=== PATIENT | female | born 1960 | race Caucasian/White ===

== ENCOUNTER → 2022-08-16 07:00 | Outpatient (REF) | payer BC, SELFPAY ==
[2022-08-16 09:30] LABS: Urine Calcium 7.2 mg/dl
[2022-08-16 09:33] LABS: 24 Hour Urine Calcium 129.6 mg/day; 24 Hour Urine Creatinine 1.062 gm/day (0.8-1.8); 24 Hour Urine Total Volume 1800 ml
== END ==
LOC: REG 07:00
PROVIDERS: ATTENDING PHYSICIAN Internal Medicine Endocrinology, Diabetes & Metabolism; FAMILY PHYSICIAN Family Medicine; OTHER PHYSICIAN Internal Medicine Hematology & Oncology; OTHER PHYSICIAN Obstetrics & Gynecology Gynecology
DX: M81.8 Other osteoporosis without current pathological fracture (principal)
CPT/HCPCS: 81050; 82340; 82570

== ENCOUNTER 2023-08-13 03:29 | Inpatient (IN) | payer BC, SELFPAY ==
[2023-08-12 23:11] VITALS: BP 105/61
[2023-08-12 23:12] VITALS: BP 105/61
[2023-08-12 23:25] VITALS: BMI 27.0
[2023-08-12 23:36] LABS: % Basophils 0.5 % (0-2); % Immature Granulocytes 0.3 % (0-0.5); % Lymphocytes 2.9 % (20.5-51.1); % Monocytes 2.3 % (1.7-9.3); Absolute Basophils 0.1 10^3/uL (0-0.2); Absolute Eosinophils 0.1 10^3/uL (0-0.7); Absolute Lymphocytes 0.3 10^3/uL (1.2-3.4); Absolute Monocytes 0.2 10^3/uL (0.1-0.6); Absolute Neutrophils 8.5 10^3/uL (1.4-6.5); Hematocrit 39.2 % (37.0-47.0); Hemoglobin 13.5 g/dL (12.0-16.0); Mean Corp Hgb Conc. 34.4 g/dL (33.0-37.0); Mean Corpuscular Hgb 30.7 pg (27.0-31.0); Mean Corpuscular Volume 89.1 fL (81.0-99.0); Mean Platelet Volume 8.8 fL (7.4-10.4); Nucleated Red Blood Cells % 0 %; Platelet Count 318 10^3/uL (130-400); Red Cell Dist. Width 12.9 % (11.5-14.5); White Blood Cell Count 9.2 10^3/uL (4.8-10.8)
[2023-08-12 23:51] LABS: ALT (SGPT) 485 U/L (0-35); Albumin 4.3 g/dl (3.5-5.0); Alkaline Phosphatase 94 U/L (38-126); Blood Urea Nitrogen 25 mg/dl (7-17); Calcium 8.7 mg/dl (8.4-10.2); Carbon Dioxide 24 mmol/L (22-30); Chloride 101 mmol/L (98-107); Estimated Creatinine Clearance 73 ml/min; Glucose 159 mg/dl (70-99); Potassium 4.2 mmol/L (3.5-5.1); Sodium 130 mmol/L (135-145); Total Bilirubin 0.6 mg/dl (0.2-1.3); Total Protein 8.2 g/dl (6.3-8.2); eGFR > 60.00
[2023-08-13] VITALS (12 sets, daily range): BP systolic 87–111; BP diastolic 51–69; BMI 26.8
[2023-08-13 00:05] LABS: AST (SGOT) 809 U/L (14-36)
--- NOTE | 2023-08-13 00:39 | ED.GENMED ---
History of Present Illness
General
Chief Complaint: Weakness
Source: patient and spouse
Exam Limitations: none
Time Seen by Provider: 08/13/23 00:31
Travel History
Have you had any contact with someone who has COVID-19?: Yes
Comment: pt. works in [facility] [employer]
Do you have any symptoms of coronavirus? Fever > 100 degrees, chills, cough, shortness of breath, sore throat, loss of taste or smell, muscle aches, or headache?: No
History of Present Illness
History of Present Illness:
See MDM
Past History
Past History
ED Past Medical History: Cancer (Ovarian), GERD, HTN, Hypercholesterolemia, Psychiatric (Anxiety, depression) and Other (Meningioma, PNA, Anemia)
ED Past Surgical History: Cholecystectomy, Gynecological ([facility] January 2013), Orthopedic (Carpal tunnel R), Urological (Ureteral stents) and Other (Santa filter, Hernia repair, Brain tumor with resection)
Social History
Tobacco: Non-smoker
Alcohol: None
Drug: None
Personal:
Living: with family
Employment: Employed
Family History
Family History: Hypertension
Phy Exam
Physical Exam
Physical Exam:
See MDM
Course
Orders/Labs/Results
Orders:
Orders
08/12/23 23:20
Electrocardiogram (*1) Urgent
Reason for Study: Syncope
08/12/23 23:21
EKG- Treatment ONCE
08/12/23 23:22
Acetaminophen Urgent
Comment: ADD ON
CMP [Comprehensive Metabolic Panel] Urgent
Complete Blood Count/With Diff Urgent
08/13/23 00:31
Add On- LAB Urgent
Tests Added?: acetaminophen level
08/13/23 00:39
CT Abd/pelvis W Iv Cont Urgent
Comment:
Reason For Exam: RUQ pain, elevated LFTs
0.9% Sodium Chloride 1000 ml [Nss] 1,000 ml IV BOLUS
08/13/23 01:46
Add On- LAB Urgent
Tests Added?: Lipase
Abnormal Lab Results
08/12/23
23:22
Absolute Neuts (auto) 8.5 H 10^3/uL
(1.4-6.5)
Absolute Lymphs (auto) 0.3 L 10^3/uL
(1.2-3.4)
Neutrophils % 93.0 H %
(42.2-75.2)
Lymphocytes % 2.9 L %
(20.5-51.1)
Sodium 130 L mmol/L
(135-145)
BUN 25 H mg/dl
(7-17)
Glucose 159 H mg/dl
(70-99)
AST 809 H* U/L
(14-36)
ALT 485 H U/L
(0-35)
08/12/23 23:22
08/12/23 23:22
Vital Signs
Initial and Last Documented VS:
Initial Vital Signs
BP
105/61
08/12/23 23:11
Last Documented Vital Signs
Temp Pulse Resp BP Pulse Ox
98.1 F 106 23 87/65 97
08/12/23 23:12 08/13/23 00:45 08/13/23 00:45 08/13/23 00:02 08/13/23 00:45
MDM/Problems Addressed
Differential Diagnosis Includes:
HPI and MDM Narrative:
63-year-old female presenting with syncopal event. She has been feeling unwell today and feeling nauseous. She did have an episode of diarrhea. Patient now complaining of right abdominal pain. Blood work was obtained prior to my evaluation.
Patient found to have significant transaminitis. She does admit to taking Tylenol today but denies Tylenol overdose or abuse. Patient states she has had her gallbladder removed in the past.
Given transaminitis, will ultimately admit. However, will give IV fluids for dehydration and diarrhea. Will obtain CT abdomen/pelvis
Physical exam
General: Weak and frail
HEENT: protecting airway. Dry mucous membranes
Neck: appears supple
CV: No evidence of cyanosis. Tachycardic
Resp: No accessory muscle use
Abd: Non-distended. Mild tenderness to right abdomen. No rebound
Extremities: No deformities
Neuro: alert
Psych: Normal affect
Skin: Intact
Problems Addressed including Acute and Chronic Conditions affecting care:
1. Transaminitis and abdominal pain
Acuity: acute
Prognosis: unstable
Details: Will obtain CT abdomen/pelvis
2. Dehydration
Acuity: acute
Prognosis: unstable
Details: Patient started on IV fluid
Updates
CT concerning for stone near the ampulla. Will add on lipase levels. Given her transaminitis and CT findings, will admit for ERCP versus MRCP.
Differential Diagnosis (but not limited to): Choledocholithiasis, colitis, hepatitis
Testing considered: Hepatitis testing
Drug therapy (if applicable): OTC meds, please see d/c instruction regarding Rx drugs
Amount and/or Complexity of Data Reviewed
Clinical info obtained from: Patient
External data reviewed: N/A
Labs I independently reviewed (but not limited to): Elevated AST and ALT
Radiology: The CT scan was personally and independently reviewed. In addition, official CT report reviewed.
Pulse Ox: not hypoxic
EKG independently reviewed: Sinus tachycardia, normal axis, no STEMI
Board Saw Runner: Sinus tachycardia
Critical Care: N/A
Risk of Complication:
Social Determinants of health: Good social support
Discussed with other providers: Hospitalist
Escalation of Care includes Admit/Obs: Given the transaminitis and CT findings, will admit for further workup
Occasional wrong word or 'sound a like' substitutions may have occurred due to the inherent limitations of voice recognition software. Read the chart carefully and recognize, using context, where substitutions have occurred.
*Critical Care Note
Total Time (30-74mins, 75-104mins- exclusive of procedures): Not Applicable
ED Attending Note
-
Portions of this chart may have been created with voice recognition software.� Occasional wrong word or��sound alike� substitutions may have occurred due to the inherent limitations of voice recognition software.
Discharge Plan
Departure
Patient Disposition: Admit
Date of Disposition: 08/13/23
Time of Disposition: 01:50
Admit to: Med/Surg
Presentation/result/management discussed w/ accepting MD/DO: Hospitalist
Discharge Problem:
Transaminitis, Acute dehydration
Prescriptions:
No Action
venlafaxine [Effexor XR] 150 MG capsule,extended release 24hr
225 mg PO DAILY
multivitamin [Daily Vitamin] 1 EACH tablet
1 tab PO DAILY
vitamin B complex 1 EACH tablet
1 tab PO DAILY
cholecalciferol (vitamin D3) [Vitamin D3] 2,000 UNIT capsule
2,000 unit PO DAILY
cranberry fruit 500 MG tablet,chewable
500 mg PO PRN PRN (Reason: uti)
zoledronic lrfr-ymqumqxp-tpxel [Reclast] 5 mg/100 mL Piggyback
See Rx Instructions .ROUTE .COMPLEX
Rx Instructions:
1 ea intravenously yearly
Referrals:
Hernan Pan MD [Family Provider] -
Interventions
Interventions:
*Risk Screen - Suicide Last Done: 08/12/23 23:25
*General Assessment Last Done: 08/12/23 23:25
*Neglect/Abuse Screening Last Done: 08/12/23 23:25
ED- Fall Risk Assessment Last Done: 08/12/23 23:25
*ED COVID-19 Vaccine History Last Done: 08/12/23 23:25
ED- Cardiac Assessment Last Done: 08/12/23 23:25
ED- Neurological Assessment Last Done: 08/12/23 23:25
ED- Pulmonary Assessment Last Done: 08/12/23 23:25
[2023-08-13] MEDS: NSS 1000 IV ×4 (00:55→13:20)
[2023-08-13 01:32] LABS: Acetaminophen 12 ug/ml (10-30)
[2023-08-13 02:01] LABS: Lipase 659 U/L (23-300)
--- NOTE | 2023-08-13 02:34 | HPS.HSE ---
Family Physician
-
Family Physician: Hernan Pan
Chief Complaint
-
Right upper quadrant pain, weakness
History of Present Illness
Patient is a pleasant 63 years old with history of ovarian cancer, GERD, HTN, Hypercholesterolemia, depression who came to the ER with right upper quadrant pain associated with diarrhea, weakness and and dizziness.
Patient has right upper quadrant pain for many months, she had a history of cholecystectomy 24 years ago, blood work showed elevated liver enzymes, normal alkaline phosphatase, elevated lipase at 659, CT abdomen pelvis done in the ER concerning of
stone at ampulla, official report pending.
Patient seen and examined at bedside, denies any chest pain or shortness of breath, still with right upper quadrant abdominal pain, dry heaves to diarrhea was today morning, as per she was having progressive weakness and lightheaded with
ambulation, blood pressure is low at 87/65 in the ER.
Patient will be admitted under hospitalist service.
Medical History
Past Medical History
Past Medical History: Reports Other
Additional Past Medical History:
Cancer (Ovarian), GERD, HTN, Hypercholesterolemia, Psychiatric (Anxiety, depression) and Other (Meningioma, PNA, Anemia)
Past Surgical History: Reports Other (Cholecystectomy, Gynecological ([facility] January 2013), Orthopedic (Carpal tunnel R), Urological (Ureteral stents) and Other (Santa filter, Hernia repair, Brain tumor with resection))
Social History
Tobacco: Non-smoker
Alcohol: None
Drug: None
Personal:
Living: With Family
Employment: Employed
Family History
Family History: Not pertinent
Allergies / Home Medications
Allergies reflects when Allergies were last updated in [email or web address].
Home Medications with original date entered in [email or web address]
Allergy/Medication List:
Allergies
Allergy/AdvReac Type Severity Reaction Status Date / Time
Ixensxo-BUE-PuK Reductase Allergy 'Quivering Verified 09/30/22 14:50
Inhibitor legs'
[Flxhmcx-Rzi-Qlc Reductase
Inhibitor]
CONTRAST MRI Allergy Unknown Uncoded 09/30/22 14:50
Home Medications
venlafaxine 150 mg capsule,extended release 24 hr (Effexor XR) 225 mg PO DAILY 10/16/12
multivitamin (Daily Vitamin tablet) 1 tab PO DAILY 09/24/13
vitamin B complex 1 tab PO DAILY 09/24/13
cholecalciferol (vitamin D3) 50 mcg (2,000 unit) capsule (Vitamin D3) 2,000 unit PO DAILY 08/14/16
cranberry fruit 500 mg chewable tablet 500 mg PO PRN PRN uti 08/14/16
zoledronic acid 5 mg/100 mL in mannitol 5 %-water intravenous piggybck (Reclast) See Rx Instructions .Route .COMPLEX 09/30/22
Review of Systems
-
A 12 point ROS was completed and negative except as noted: Yes
Constitutional: Reports Fever and Fatigue; Denies Weight Gain, Weight Loss or Sleep Disturbance
EENT: Denies Tearing, Sore Throat, Mouth Pain, Mouth Swelling or Runny Nose
Respiratory: Denies Cough, Hemoptysis or Trouble Breathing
Cardiac: Denies Chest Pain, Diaphoresis, Palpitations or Syncope
Abdomen/GI: Reports Abdominal Pain, Nausea, Vomiting and Diarrhea; Denies Constipated, Bloody Stools or Black Stools
: Denies Dysuria, Frequency, Flank Pain, Incontinence, Difficulty Voiding, Urgency, Bleeding or Dark Urine
Musculoskeletal: Denies Joint Pain, Joint Swelling, Muscle Pain, Muscle Stiffness or Edema
Skin: Denies Itching or Rash
Neurological: Denies Dizzy, Headache, Weakness or Numbness
Endocrine: Denies Polyuria, Polydipsia or Temp Intolerance
Hematologic/Lymphatic: Denies Bleeding, Swollen Glands or Bruising
Psych: Reports Calm and Depression; Denies Anxiety or Panic Disorder
Physical Exam
Vital Signs
Vital Signs
Temp Pulse Resp BP Pulse Ox
98.1 F 106 23 87/65 97
08/12/23 23:12 08/13/23 00:45 08/13/23 00:45 08/13/23 00:02 08/13/23 00:45
Physical Exam
General: Well Developed, Well Nourished, No Apparent Distress, Comfortable and Good Appetite; No Pain, Chills or Sweats
HEENT: NormoCephalic, Moist mucous membranes, Atraumatic, Good Dentition, PERRLA, Nose Appears Normal and Ears Appear Normal
Respiratory: Clear
Cardiac: S1/S2 and Regular Rhythm
Breast: Deferred by me
GI: Non Distended, Normal Bowel Sounds and Tender (RUQ)
Genito-urinary: Deferred by me
Musculoskeletal: No Clubbing, No Cyanosis and No Edema
Skin: Warm; No Rash, Jaundice, Ulcers, Lesions or Decubitus Ulcers
Neuro: Awake, Alert, Oriented, AO x 3, No Motor Deficits, Nonfocal/grossly intact and Cranial Nerves Intact
Hematologic/Lymphatic: No Lymphadenopathy
Psych: Calm
Laboratory Results
-
08/12/23 23:22
08/12/23 23:22
Laboratory Results
Total Bilirubin 0.6 mg/dl (0.2-1.3) 08/12/23 23:22
AST 809 U/L (14-36) H* 08/12/23 23:22
ALT 485 U/L (0-35) H 08/12/23 23:22
Alkaline Phosphatase 94 U/L (38-126) 08/12/23 23:22
Lipase 659 U/L (23-300) H 08/12/23 23:22
Data Reviewed
-
Diagnostic Radiology: Report Reviewed by me
CT Scan: Report Reviewed by me
Medical Tests (Nuc Med, Echo, EKG etc): Report Reviewed by me
Lab Data: Labs Reviewed by me
Old Records: Requested and Reviewed
Impression/Plan
-
IMPRESSION:
63 years old with history of ovarian cancer, hypertension, depression who came to the ER with right upper quadrant pain and weakness, found to have elevated AST/ALT with normal alk phos and concern of stone at ampulla will be admitted for GI
consult/MRCP and possibly ERCP.
PLAN:
Transaminitis/acute pancreatitis.
AST 809
ALT 485
ALP 94
[address] abdomen pelvis done in the ER shows concern of stone at ampulla-official report pending.
Consult gastroenterology.
N.p.o.
IV fluid hydration
Pain and nausea control.
Depression
Recently changed Effexor to a different manufacture, since then patient experience depression and tearing
Requested psych consult.
Mild hyponatremia
Secondary to low appetite and diarrhea
IV fluid hydration
History of ovarian cancer
S/p surgical removal
CODE STATUS: Full code
DVT prophylaxis: Lovenox
Diet: N.p.o.
[2023-08-13] MEDS: TORADOL 10 MG IV ×2 (04:09→19:56)
--- NOTE | 2023-08-13 05:41 | PTCARENOTE ---
Rec'd pt from the ER. Pt ambulated in to the room with standby assist as she had previously passed out at home. Pain currently at a 0 since receiving Toradol in the ER. NSS infusing as ordered. Pt expresses that she does not wish to receive her
Effexor today as she feels it has changed her mood. Will pass on to the next shift in report. Call valles in reach.
[2023-08-13 08:44] LABS: Hematocrit 33.5 % (37.0-47.0); Hemoglobin 11.7 g/dL (12.0-16.0); Mean Corp Hgb Conc. 34.9 g/dL (33.0-37.0); Mean Corpuscular Hgb 31.4 pg (27.0-31.0); Mean Corpuscular Volume 89.8 fL (81.0-99.0); Mean Platelet Volume 9.4 fL (7.4-10.4); Platelet Count 272 10^3/uL (130-400); Red Blood Cell Count 3.73 10^6/uL (4.20-5.40); Red Cell Dist. Width 13.1 % (11.5-14.5); White Blood Cell Count 5.8 10^3/uL (4.8-10.8)
--- NOTE | 2023-08-13 09:06 | CON.GI ---
Addendum entered and electronically signed by Renny Akhtar MD 08/13/23 14:30:
I saw and examined the patient.
The CENTRIFUGAL SPINNER or PA's note was reviewed and I agree with the note.
Comment:
63 y/o female with hx of ovarian ca with mets in 2012, cholecystectomy in 1999 with n/v and some diarrhea with ruq d/c.
abd: mild ruq tenderness
CT scan: suggestive of ampullary stone
impression:
n/v
diarrhea
abd pain
plan:
MRCP
monitor lfts
PPI
collect stool studies if diarrhea restarts
check hep panel
Original Note:
Consultation
-
Date/Time Consultation Requested: 08/13/23 @ 03:59
Date/Time Consultation Performed: 08/13/2023 @ 09:15
Requesting Provider: Dr. Ab Arboleda
Performing Provider: Samanta RAMIRES; Dr. Renny Akhtar
Reason for Consultation: Transaminitis/pancreatitis
Medical History
Chief Complaint / HPI
Chief Complaint: RUQ pain, weakness
History of Present Illness:
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
Joshua with [facility]), hyperlipidemia, hypertension, GERD, anxiety/depression, chronic anemia, history of brain meningioma with resection, cholecystectomy (1999), who presented to the emergency room with complaints of right upper quadrant pain
and weakness. We are being asked to evaluate for transaminitis and ?pancreatitis. The patient reports for the past several months she has been having intermittent right upper quadrant pain. She notes that it was primarily intermittent in nature
but more recent has been more of a constant pain this past week. She notes pain under her right rib area that sometimes radiates to her back. She also admits to chills but denies any overt fevers. She admits to feelings of nausea without vomiting
but has had significant dry heaves. She notes since her radiation history to her esophagus that she has never been able to vomit. She also admits to diarrhea of multiple episodes with nonbloody output. She notes passing out twice yesterday as
well due to her hypovolemic state. She notes she has not been eating as well the last few days due to ongoing symptoms. She does admit to chronic constipation and will take MiraLAX, Senokot, and Colace when needed. She has not followed up with a
GI doctor recently but is known to Dr. Patel previously. She reports when she had her gallbladder removed she did have many stones found. She admits to history of ovarian cancer treated about 11 years ago with radiation and chemo. She reports
prior colonoscopy and endoscopy as noted below. She denies any yellowing of the skin or eyes. She otherwise denies any dysphagia, odynophagia, unintentional weight loss, chest pain, or shortness of breath. She denies any history of liver disease
or hepatitis. She denies any prior history of pancreatitis. She denies any new medications, recent travel, recent sick contacts, or recent antibiotic use. She does note she did get a shingles vaccine in June. She denies use of blood thinners
or NSAIDs. Routine labs on admission showed a WBC 5.8, hemoglobin 11.7, platelets 272,000, sodium 130, potassium 4.2, BUN 25, creatinine 0.7, total bilirubin 0.6, AST 809, ALT 485, alk phos 95, lipase 659. CT imaging of the abdomen pelvis with IV
contrast was obtained showing CBD dilation of 1.1 cm with mild intra biliary ductal dilation and concern for stone at the ampulla. She was made n.p.o. and admitted for further evaluation by GI with pending MRCP this morning.
Past Medical History
Past Medical History: Cancer (Ovarian cancer with metastasis to the esophagus and stomach status post radiation and chemotherapy.), GERD, HTN, Hypercholesterolemia, Psychiatric (Anxiety/depression, chronic anemia) and Other (Hernia)
Past Surgical History: Cholecystectomy (24 years ago), Gynecological (Total abdominal hysterectomy 2012), Urological (Ureteral stents) and Other (brain meningioma resection, IVC filter placement and removal)
Social History
Tobacco: Non-Smoker
Alcohol: None
Drug: None
Personal:
Living: With Family
Family History
Family History: Reviewed & Not Pertinent
Allergies / Home Medications
Allergy/AdvReac Type Severity Reaction Status Date / Time
Jgrtgzd-IEG-EzC Reductase Allergy 'Quivering Verified 09/30/22 14:50
Inhibitor legs'
[Oxrkior-Egh-Bzt Reductase
Inhibitor]
CONTRAST MRI Allergy Unknown Uncoded 09/30/22 14:50
Medication Instructions Recorded
venlafaxine 150 mg 225 mg PO DAILY 10/16/12
capsule,extended release 24 hr
(Effexor XR)
multivitamin (Daily Vitamin tablet) 1 tab PO DAILY 09/24/13
vitamin B complex 1 tab PO DAILY 09/24/13
cholecalciferol (vitamin D3) 50 2,000 unit PO DAILY 08/14/16
mcg (2,000 unit) capsule (Vitamin
D3)
cranberry fruit 500 mg chewable 500 mg PO PRN PRN uti 08/14/16
tablet
zoledronic acid 5 mg/100 mL in See Rx Instructions .Route .COMPLEX 09/30/22
mannitol 5 %-water intravenous
piggybck (Reclast)
Review of Systems
-
History Source: Patient
Constitutional: Reports Chills
EENT: Reports No Symptoms
Respiratory: Reports No Symptoms
Cardiac: Reports No Symptoms
Abdomen/GI: Reports Abdominal Pain, Nausea, Diarrhea, Constipated and Anorexia
: Reports No Symptoms
Musculoskeletal: Reports No Symptoms
Skin: Reports No Symptoms
Neurological: Reports Weakness
Vital Signs
Temp Pulse Resp BP Pulse Ox
97.8 F 109 16 93/59 96
08/13/23 05:26 08/13/23 05:26 08/13/23 05:26 08/13/23 05:26 08/13/23 05:44
Physical Exam
Exam
General: Well Developed, Well Nourished, No Apparent Distress and Other (Pale appearing )
HEENT: Normocephalic, Anicteric and Atraumatic
Respiratory: Clear
Cardiac: S1/S2 and Regular Rhythm
Breast: Deferred by me
GI: Soft, Non Distended, Normal Bowel Sounds and Tender (Generalized tenderness, primarily in the right upper quadrant right lower quadrant)
Rectal: Deferred by Provider
Musculoskeletal: No Edema
Skin: Warm and Dry
Neuro: Awake and Oriented
Psych: Calm
Results
WBC 5.8 10^3/uL (4.8-10.8) 08/13/23 07:54
Hgb 11.7 g/dL (12.0-16.0) L 08/13/23 07:54
Hct 33.5 % (37.0-47.0) L 08/13/23 07:54
MCV 89.8 fL (81.0-99.0) 08/13/23 07:54
Plt Count 272 10^3/uL (130-400) 08/13/23 07:54
Absolute Neuts (auto) 8.5 10^3/uL (1.4-6.5) H 08/12/23 23:22
Sodium 130 mmol/L (135-145) L 08/12/23 23:22
Potassium 4.2 mmol/L (3.5-5.1) 08/12/23 23:22
Chloride 101 mmol/L (98-107) 08/12/23 23:22
Carbon Dioxide 24 mmol/L (22-30) 08/12/23 23:22
BUN 25 mg/dl (7-17) H 08/12/23 23:22
Creatinine 0.7 mg/dL (0.6-1.0) 08/12/23 23:22
Calcium 8.7 mg/dl (8.4-10.2) 08/12/23 23:22
Total Bilirubin 0.6 mg/dl (0.2-1.3) 08/12/23 23:22
AST 809 U/L (14-36) H* 08/12/23 23:22
ALT 485 U/L (0-35) H 08/12/23 23:22
Alkaline Phosphatase 94 U/L (38-126) 08/12/23 23:22
Lipase 659 U/L (23-300) H 08/12/23 23:22
Diagnostic Image Results:
08/13/2023 CT A/P w/IV contrast: IMPRESSION:
'1. 5 mm hyperattenuating lesion in the region of the distal common bile duct, with associated mild dilation of the common bile duct. This may represent a common bile duct stone, and is new compared to prior CT dated 01/09/2020. Consider MRCP as
clinically appropriate.
2. Laxity of the anterior abdominal wall, allowing for protrusion of multiple bowel loops. No evidence of incarceration or intestinal obstruction.'
Prior GI Procedures:
EGD: 08/11/2020 Dr. Patel: Normal esophagus. Biopsied. Z-line regular, 35 cm from the incisors. Moderate antral gastritis. Biopsied. Bilious gastric fluid. Fluid aspiration performed. Normal examined duodenum. Biopsied. Path showing mild chronic
gastritis, negative for H pylori, celiac, EoE, or Lilly's.
09/05/2015 Dr. Patel: Normal esophagus. Several biopsies were obtained for evaluation of eosinophilic esophagitis Z-line regular, 39 cm from the incisors. Normal stomach. Biopsied. A single gastric polyp. Biopsied.
Normal examined duodenum. Biopsied. Path showing chronic antral inflammation, negative for H pylori, celiac, EoE, Lilly's. Benign gastric polyps.
�Colonoscopy: 08/11/2020 Dr. Patel: Two 3 to 4 mm benign polyps in the rectum. Non-bleeding internal hemorrhoids. The examined portion of the ileum was normal. The examined portion of the ileum was normal.
09/05/2015 Dr. Patel: One 6 mm adenomatous polyp in the mid ascending colon. Biopsied. The examined portion of the ileum was normal.
Assessment / Plan
-
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
Joshua with [facility]), hyperlipidemia, hypertension, GERD, anxiety/depression, chronic anemia, history of brain meningioma with resection, cholecystectomy (1999), who presented to the emergency room with complaints of right upper quadrant pain
and weakness. We are being asked to evaluate for transaminitis and ?pancreatitis. She notes somewhat subacute right upper quadrant pain over the past several months which has been intermittent now with a constant discomfort and elevated LFTs.
Labs showing total bilirubin 0.6, AST 809, ALT 485, alk phos 94. CT imaging showing possible choledocho and dilation of the common bile duct. No evidence of pancreatitis on imaging. She has also been having diarrhea prior to admission and likely
in a hypovolemic state. No recent antibiotics, sick contacts, recent travel.
Problem list:
-RUQ pain, CT imaging concerning for choledocholithiasis
-abnormal LFT's, hepatocellular pattern
-Prior CCY in 1999
-hx metastatic ovarian cancer to stomach/esophagus s/p chemo/XRT/[facility]
-mild hyponatremia
-diarrhea
-chronic constipation
Other pertinent medical hx:
-Hypertension
-Hyperlipidemia
-GERD
-Depression/anxiety
-History of brain meningioma with resection
-Chronic normocytic anemia
-Abdominal hernia
Recommendations:
-Etiology of abdominal pain likely secondary to choledocholithiasis with '5 mm hyperattenuating lesion in the region of the distal common bile duct with dilated common bile duct' on CT imaging.
-Agree with MRCP this morning. Will review with Dr. Akhtar regarding MRI contrast imaging with her history of cancer. She does note an allergy to MRI contrast although unclear which one.
-Continue n.p.o. status until MRCP is complete. If MRCP is positive will need ERCP on Tuesday.
-Trend LFTs
-Monitor for fevers or leukocytosis, currently she does not appear toxic
-I do not feel she has pancreatitis as her lipase level is not 3 times upper limit nor did CT imaging showed inflammation of the pancreas.
-IV fluids as per hospitalist
-Will send stool studies to rule out infectious etiology for her diarrhea; possibly viral/infectious etiology
-Monitor sodium levels and electrolytes
-Avoid hepatotoxins
-Will add hepatitis serologies
-She will need follow-up outpatient with GI for evaluation of her chronic constipation and surveillance colonoscopy which is due in 2025
-We will follow
-
-
Thank you for consultation and allowing me to participate in the patient's care. Please call the cellulose insulation helper GI physician during the after hours with any questions or concerns.
[2023-08-13 09:19] LABS: Albumin 3.3 g/dl (3.5-5.0); Alkaline Phosphatase 120 U/L (38-126); Blood Urea Nitrogen 21 mg/dl (7-17); Calcium 7.4 mg/dl (8.4-10.2); Carbon Dioxide 21 mmol/L (22-30); Chloride 107 mmol/L (98-107); Estimated Creatinine Clearance 85 ml/min; Glucose 136 mg/dl (70-99); Lipase 282 U/L (23-300); Magnesium 1.5 mg/dl (1.6-2.3); Potassium 3.9 mmol/L (3.5-5.1); Sodium 132 mmol/L (135-145); Total Bilirubin 0.6 mg/dl (0.2-1.3); Total Protein 6.3 g/dl (6.3-8.2); eGFR > 60.00
[2023-08-13] MEDS: LOVENOX 40 MG SC (09:38)
[2023-08-13 10:23] LABS: ALT (SGPT) 899 U/L (0-35); AST (SGOT) 1417 U/L (14-36)
--- NOTE | 2023-08-13 11:08 | CON.MD ---
Addendum entered and electronically signed by Danny Fu MD 08/13/23 11:52:
Desvenlafaxine and Trintellix are not on formulary. I returned to see pt -- Ricky was visiting. She admits she skipped a few doses of Effexor last week likely due to nausea. Now agreeable to Remeron Whit Tab 15 mg. HS (mirtazapine) which
should help nausea, sleep, depression and anxiety. Psychiatry will follow.
Original Note:
Consultation - Medical
-
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
region of the distal common bile duct with dilated common bile duct on CT. Psychiatry asked to see her due to worsening depression possibly due to a change in bench mover of venlafaxine which she has taken for about 12 years. She has a past
medical history of metastatic ovarian cancer, meningioma resection at [facility] 01/2013, cholecystectomy, GERD, Htn, hypercholesterolemia. She has refused venlafaxine for the past two doses (which could be causing withdrawal symptoms including
nausea and dizziness). BP has been low in hospital.
Has always been an anxious person. When she was receiving RT for ov ca, she was started on Effexor the final dose being 225 mg. for many years. Despite this, has had intermittent suicidal thoughts and ongoing anxiety. When she was diagnosed with
a meningioma, she had a difficult time and seemingly was admitted briefly to a psychiatric unit (could not recall where). In the past two weeks, has had increased depression with suicidal thoughts, tearfulness, and frightening nightmares. Her
weight has been stable and appetite has been okay until recently. Occassionally sees a therapist, Dr. Angi Regan, who also sees pt's son with ASD.
PH: Venlafaxine XR x 12 years. Denies ever being treated with other antidepressants, atypical antipsychotics or other psychiatric medications. One brief psychiatric hospitalization as noted above.
FH: Parents when she was 11; not close to father thereafter. Mother in 2012. Brother shortly after mother. He had a drug history. One sister also had a drug history. Has a sister in [place] and one in [place]. 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 Apparently good marriage. Has a 46 y/o son who has stopped talking to them for unknown reasons. Has 36 y/o son who is intelligent but has Asperger's Syndrome and is usually living with them. He
drives and works. No known family history of depression, bipolar disorder or suicide.
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 Lives on [address] property in [place]. 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 No alcohol, illicit drugs or nicotine.
MSE: Middle aged woman wearing glasses who is alert and oriented resting in bed. Appears mildly uncomfortable and at the end of my visit began to retch. No tics, tremors or involuntary movements observed. Mood is depressed. Tearful at times.
Pleasant. Speech is well-articulated and goal-directed. Rare word-finding problems. Denies hallucinations. Has had thoughts of suicide without intentions. Chronic anxiety but no panic attacks. Obsessive nature. Cognitively intact. Memory
fairly good but not formally tested. Motivated for treatment.
Labs: WBC 5.8, Hgb 11.7, Hct 33.7, Plt 272, ANC 8.5, Na 132, BUN 21, Cr. 0.6, Gluc 136, Ca low at 7.4, Mg. low at 1.5, Alb 3.3 and Lypase 282 (was 659. AST 809 yesterday to 1417 today; ALT 485 yesterday to [address]: Common bile duct stone 5
mm.
Impression: This 63 y/o woman who has had a number of stressors but also serious medical problems now presents with a common bile duct stone causing elevation of LFTs and medical symptoms. She has had worsening of depression including thoughts of
suicide which she attributes to a change in bench mover of venlafaxine, but may have also been triggered by her physical condition.
Diagnosis: Major Depressive Disorder, Recurrent, Moderate
Generalized Anxiety Disorder
Plan: I assured Mrs. Rosario there are many ways to treat depression. For now, suggested switching from venlafaxine to desvenlafaxine (Pristiq) which is the CYP 2D6 metabolite and should be a more dependable way to replacing venlafaxine. She
declined an offer of mirtazapine which can help nausea and sleep, but often causes weight gain. It is premature to consider augmentation strategies, but aripirazone could be considered. I also told her that Trintellix is a good option, but I don't
think it is available at . I will begin Pristiq 100 mg. daily to replace Effexor XR 225 mg. There is no need for suicide precautions.
Psychiatry will follow. I would be happy to have her seen for ongoing care in my private practice as we participate in the [employer] plan and in Medicare.
--- NOTE | 2023-08-13 12:37 | W.PN.HOSP.TC ---
Today's Communication/Plan
-
MRCP
add zosyn
Assessment / Plan
Assessment / Plan
pt is a 63 year old female
abdominal pain/n/v--likely due to Transaminitis from obstructing stone in duct--trend LFTs--check MRI--apprec GI--NPO/IVF--pt with chills--would cover with ABX
Depression--Recently changed Effexor to a different manufacture, since then patient experience depression and tearing--Requested psych consult.
Mild hyponatremia--Secondary to low appetite and diarrhea--IV fluid hydration
History of ovarian cancer--S/p surgical removal
CODE STATUS: Full code
DVT prophylaxis: Lovenox
Anticipated Discharge: > 48 hours
Subjective/Interval History
-
Date of Service: August 13, 2023
pt c/o nausea and retching
Objective Data
-
Labs:
Laboratory Results
08/13/23
07:54
WBC 5.8
Hgb 11.7 L
Hct 33.5 L
Plt Count 272
Sodium 132 L
Potassium 3.9
Chloride 107
Carbon Dioxide 21 L
BUN 21 H
Creatinine 0.6
Glucose 136 H
Calcium 7.4 L
Total Bilirubin 0.6
AST 1417 H*
ALT 899 H*
Alkaline Phosphatase 120
Vital Signs:
max temp for 24 hours
08/12/23
23:12
Temp 98.1 F
Vital Signs
Temp Pulse Resp BP Pulse Ox
100.2 F 113 18 107/66 100
08/13/23 11:10 08/13/23 11:10 08/13/23 11:10 08/13/23 11:10 08/13/23 11:10
Review of Systems
-
All other systems: Reviewed and negative
Abdomen/GI: Reports Nausea
Physical Exam
-
General: Well Developed, Well Nourished and No Apparent Distress
HEENT: Normocephalic and Atraumatic; Negative Oxygen
Respiratory: Clear to Auscultation; Negative Wheezes or Rhonchi
Cardiac: Regular Rhythm and S1/S2; Negative Murmur
GI: Soft, Nontender, Nondistended and Normal Bowel Sounds
Musculoskeletal: No Clubbing, No Cyanosis and No Edema
Skin: Warm
Neuro: Awake
[2023-08-13] MEDS: ZOSYN 50 IV ×2 (13:22→19:48)
[2023-08-13] MEDS: MAGNESIUM SULFATE 100 IV (15:33)
[2023-08-13] MEDS: ZOFRAN 4 MG IV (19:47)
[2023-08-13] MEDS: REMERON ODT 15 MG PO (21:34)
--- NOTE | 2023-08-13 22:30 | PTCARENOTE ---
Pt. did not having nightmares after she woke up with staff came in room, pt. then fell back to sleep.
[2023-08-14] VITALS (7 sets, daily range): BP systolic 103–135; BP diastolic 55–77; PULSE 95; O2SAT 100
[2023-08-14] MEDS: NSS 1000 IV ×3 (02:54→20:41)
[2023-08-14] MEDS: ZOSYN 50 IV ×4 (02:54→19:39)
[2023-08-14] MEDS: LOVENOX 40 MG SC (07:31)
--- NOTE | 2023-08-14 08:55 | CM ---
Patient seen bedside.
IA completed.
patient lives with spouse in 2 story home.
Independent prior to admission.
No d/c needs anticipated.
MRCP completed.
PCP: Dr Mireya Pan
Pharmacy: [facility]
Plan: home no needs.
[2023-08-14 09:17] LABS: Hematocrit 31.6 % (37.0-47.0); Hemoglobin 10.7 g/dL (12.0-16.0); Mean Corp Hgb Conc. 33.9 g/dL (33.0-37.0); Mean Corpuscular Volume 91.6 fL (81.0-99.0); Mean Platelet Volume 9.6 fL (7.4-10.4); Platelet Count 246 10^3/uL (130-400); Red Blood Cell Count 3.45 10^6/uL (4.20-5.40); Red Cell Dist. Width 13.6 % (11.5-14.5); White Blood Cell Count 5.7 10^3/uL (4.8-10.8)
[2023-08-14 09:56] LABS: ALT (SGPT) 472 U/L (0-35); AST (SGOT) 362 U/L (14-36); Albumin 2.9 g/dl (3.5-5.0); Alkaline Phosphatase 129 U/L (38-126); Blood Urea Nitrogen 15 mg/dl (7-17); Calcium 6.8 mg/dl (8.4-10.2); Carbon Dioxide 20 mmol/L (22-30); Chloride 108 mmol/L (98-107); Estimated Creatinine Clearance 73 ml/min; Glucose 82 mg/dl (70-99); Magnesium 2.6 mg/dl (1.6-2.3); Potassium 3.5 mmol/L (3.5-5.1); Sodium 130 mmol/L (135-145); Total Bilirubin 0.4 mg/dl (0.2-1.3); Total Protein 5.8 g/dl (6.3-8.2); eGFR > 60.00
--- NOTE | 2023-08-14 10:00 | W.PN.GI.CBS2 ---
Today's Communication / Plan
-
monitor lfts,
Assessment / Plan
-
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
Joshua with [facility]), hyperlipidemia, hypertension, GERD, anxiety/depression, chronic anemia, history of brain meningioma with resection, cholecystectomy (1999), who presented to the emergency room with complaints of right upper quadrant pain
and weakness. We are being asked to evaluate for transaminitis and ?pancreatitis. She notes somewhat subacute right upper quadrant pain over the past several months which has been intermittent now with a constant discomfort and elevated LFTs.
Labs showing total bilirubin 0.6, AST 809, ALT 485, alk phos 94. CT imaging showing possible choledocho and dilation of the common bile duct. No evidence of pancreatitis on imaging. She has also been having diarrhea prior to admission and likely
in a hypovolemic state. No recent antibiotics, sick contacts, recent travel.
Problem list:
-RUQ pain, CT imaging concerning for choledocholithiasis
-abnormal LFT's, hepatocellular pattern
-Prior CCY in 1999
-hx metastatic ovarian cancer to stomach/esophagus s/p chemo/XRT/[facility]
-mild hyponatremia
-diarrhea
-chronic constipation
Other pertinent medical hx:
-Hypertension
-Hyperlipidemia
-GERD
-Depression/anxiety
-History of brain meningioma with resection
-Chronic normocytic anemia
-Abdominal hernia
MRCP:
Common bile duct measures up to 9.7 mm, in the upper range of normal, with top-normal considered 10 mm after cholecystectomy.
There is no convincing evidence for intraluminal bile duct calculus.
The calcification identified in the region of the distal common bile duct on CT appears to be adjacent to the common bile duct, not within the common bile duct. This calcification may however be within or obstructing the pancreatic duct in the
region of the pancreatic head.
Note is made of pancreatic divisum anatomy.
Recommendations:
- follow LFTS which markedly came down today
- will likely need EUS +/- ERCP to evaluate if numbers remain elevated will d/w Dr Jaeger (will keep NPO in case needs to be done tomorrow)
- no stool to collect
- monitor lfts
- clear liquids today
Subjective
Subjective
Date of Service: August 14, 2023
Pt w/o pain, not hungry
Objective
Data Reviewed
Laboratory Data:
Laboratory Results
08/14/23 08:03
08/14/23 08:03
Laboratory Results
Magnesium 2.6 mg/dl (1.6-2.3) H 08/14/23 08:03
Total Bilirubin 0.4 mg/dl (0.2-1.3) 08/14/23 08:03
AST 362 U/L (14-36) H 08/14/23 08:03
ALT 472 U/L (0-35) H 08/14/23 08:03
Alkaline Phosphatase 129 U/L (38-126) H 08/14/23 08:03
Lipase 282 U/L (23-300) 08/13/23 07:54
Vital Signs and I&O:
Vital Signs
Temp Pulse Resp BP Pulse Ox
97.9 F 96 14 115/64 97
08/14/23 07:15 08/14/23 07:15 08/14/23 07:15 08/14/23 07:15 08/14/23 07:15
I&O
08/13/23 08/14/23 08/15/23
06:59 06:59 06:59
Intake Total 800 / 800
Balance 800 / 800
Physical Exam
Physical Exam
GI: Soft, Non Distended and Non Tender
[2023-08-14] MEDS: CALCIUM GLUCONATE 280 MG IV (10:40)
--- NOTE | 2023-08-14 10:59 | W.PN.HOSP.TC ---
Today's Communication/Plan
-
getting ERCP/EUS in AM
replete calcium
trend labs
Assessment / Plan
Assessment / Plan
pt is a 63 year old female
abdominal pain/n/v--likely due to Transaminitis from obstructing stone in duct--LFTs a bit better--no stone seen on MRI--apprec GI--clears, NPO at [facility] for ERCP/EUS in AM--pt with chills--zosyn added
hypocalcemia/hypokalemia--replete
Depression--Recently changed Effexor to a different manufacture, since then patient experience depression and tearing--apprec psych
Mild hyponatremia--Secondary to low appetite and diarrhea--IV fluid hydration
History of ovarian cancer--S/p surgical removal
CODE STATUS: Full code
DVT prophylaxis: Lovenox
Anticipated Discharge: > 48 hours
Subjective/Interval History
-
Date of Service: August 14, 2023
pt with minimal RUQ pain
Objective Data
-
Labs:
Laboratory Results
08/14/23
08:03
WBC 5.7
Hgb 10.7 L
Hct 31.6 L
Plt Count 246
Sodium 130 L
Potassium 3.5
Chloride 108 H
Carbon Dioxide 20 L
BUN 15
Creatinine 0.7
Glucose 82
Calcium 6.8 L*
Total Bilirubin 0.4
AST 362 H
ALT 472 H
Alkaline Phosphatase 129 H
Vital Signs:
max temp for 24 hours
08/13/23
11:10
Temp 100.2 F
Vital Signs
Temp Pulse Resp BP Pulse Ox
97.9 F 96 14 115/64 97
08/14/23 07:15 08/14/23 07:15 08/14/23 07:15 08/14/23 07:15 08/14/23 07:15
I&O
08/13/23 08/14/23 08/15/23
06:59 06:59 06:59
Intake Total 800 / 800
Balance 800 / 800
Review of Systems
-
All other systems: Reviewed and negative
Physical Exam
-
General: Well Developed, Well Nourished and No Apparent Distress
HEENT: Normocephalic and Atraumatic
Respiratory: Clear to Auscultation; Negative Wheezes or Rhonchi
Cardiac: Regular Rhythm and S1/S2; Negative Murmur
GI: Soft, Nontender, Nondistended and Normal Bowel Sounds
Musculoskeletal: No Clubbing, No Cyanosis and No Edema
Neuro: Awake
Psych: Calm
--- NOTE | 2023-08-14 12:56 | W.PN.UPDATE ---
Update Note
Progress Note Update
63 y /o woman seen yesterday in consultation due to depression with suicidal ideation in face of elevation of transaminases, abdominal pain, diarrhea and nausea. She had been on Effexor XR 225 mg. but was not taking in the few days before I saw her
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 I stopped Effexor and began Remeron Whit Tab 15 mg. HS.
I spoke briefly to her side panel hanger and reviewed report from [facility]. No stone was seen yesterday, 'The calcification identified in the region of the distal common bile duct on CT appears to be adjacent to the common bile duct, not within the
common bile duct. This calcification may however be within or obstructing the pancreatic duct in the region of the pancreatic head.' Calcifications were also seen in the pancreas. Today, very significant reduction in transaminases: AST 1417 to
362; ALT 899 to 472, Alk phos slightly increased. Lipase is now normal (was elevated). She will likely have ERCP tomorrow.
Pt. seen in room and visitors all left so we could speak privately. She was tearful at the thought of this being a recurrence of cancer and said she would not want to go through this again. I suggested she wait to see what is found. She very much
would like to be seen in my private office. Also expressed concerns about her son. Family is very supportive. Friends in the hallway let me know what a kind person she is.
Her sleep was somewhat better last night. Still having bad dreams. Will continue Remeron 15 mg, this could be increased to 30 mg. which would have a better antidepressant effect although not necessarily more adverse effects (sedation and weight
gain). It should help nausea.
Psychiatry will continue to follow.
[2023-08-14] MEDS: ZOFRAN 4 MG IV (20:40)
[2023-08-14] MEDS: REMERON ODT 15 MG PO (20:40)
--- NOTE | 2023-08-14 22:18 | W.PN.UPDATE ---
Update Note
Progress Note Update
Nursing notes patient with bilateral lower leg redness, swelling, and burning sensation. Did receive second dose of Remeron tonight which may cause red man syndrome. She also has MRI contrast allergy listed but received IV contrast with CT scan this
admission. Regardless she is reacting to something so will start with Benadryl 50 MG IV now...no respiratory compromise or stridor noted.
[2023-08-14] MEDS: BENADRYL 50 MG IV (22:30)
--- NOTE | 2023-08-14 22:30 | PTCARENOTE ---
Pt with redness in her bilateral thighs. Pt denies shortness of breath or itching, but reports that her thighs are 'burning'. House LEARNING COORDINATOR Geovanna Mccarty notified, order for 1x IV Benadryl 50mg provided to pt. Will continue to monitor.
[2023-08-15] MEDS: ZOSYN 50 IV ×2 (02:33→08:46)
[2023-08-15 03:00] VITALS: BP 117/71
[2023-08-15 05:52] LABS: Hematocrit 31.5 % (37.0-47.0); Hemoglobin 10.5 g/dL (12.0-16.0); Mean Corp Hgb Conc. 33.3 g/dL (33.0-37.0); Mean Corpuscular Hgb 30.2 pg (27.0-31.0); Mean Corpuscular Volume 90.5 fL (81.0-99.0); Mean Platelet Volume 9.3 fL (7.4-10.4); Platelet Count 224 10^3/uL (130-400); Red Blood Cell Count 3.48 10^6/uL (4.20-5.40); Red Cell Dist. Width 13.4 % (11.5-14.5); White Blood Cell Count 5.4 10^3/uL (4.8-10.8)
[2023-08-15 06:02] LABS: INR 1.01; PT 13.1 Sec (11.4-14.6)
[2023-08-15 06:19] LABS: ALT (SGPT) 321 U/L (0-35); AST (SGOT) 165 U/L (14-36); Albumin 3.1 g/dl (3.5-5.0); Alkaline Phosphatase 107 U/L (38-126); Blood Urea Nitrogen 9 mg/dl (7-17); Calcium 7.6 mg/dl (8.4-10.2); Carbon Dioxide 21 mmol/L (22-30); Chloride 111 mmol/L (98-107); Estimated Creatinine Clearance 73 ml/min; Glucose 84 mg/dl (70-99); Magnesium 1.8 mg/dl (1.6-2.3); Potassium 3.5 mmol/L (3.5-5.1); Sodium 135 mmol/L (135-145); Total Bilirubin 0.4 mg/dl (0.2-1.3); eGFR > 60.00
[2023-08-15 07:38] VITALS: BP 112/66
[2023-08-15] MEDS: NSS 1000 IV (07:41)
[2023-08-15] MEDS: LOVENOX 40 MG SC (08:46)
--- NOTE | 2023-08-15 09:56 | W.PN.HOSP.TC ---
Today's Communication/Plan
-
Stop Zosyn
Await ERCP
Assessment / Plan
Assessment / Plan
Gen-AAOx3, NAD
HEENT-NC, AT, anicteric, clear oral mm
Neck-supple
CV-reg, no M, +S1/S2
Lungs-clear B/L
Abd-soft, NT, ND
Ext-no edema
Musculoskeletal-no cyanosis, clubbing
Skin-warm and dry, faint maculopapular rash on both thighs
Neuro-grossly non-focal
Psych-calm, cooperative
Acute hepatitis--likely due to Transaminitis from obstructing stone in duct--LFTs a bit better--no stone seen on MRI--apprec GI. Await ERCP today. Transaminases trending down. Viral hepatitis panel pending.
Drug rash -suspect may be related to piperacillin/tazobactam. Will discontinue. Remeron was also discontinued last night. Recommend outpatient follow-up with immunology. She did tolerate amoxicillin in the past for sore throat.
hypocalcemia/hypokalemia--replete
Depression--Recently changed Effexor to a different manufacture, since then patient experience depression and tearing--apprec psych
Hypovolemic hyponatremia -improved.
History of ovarian cancer--S/p surgical removal
CODE STATUS: Full code
DVT prophylaxis: Lovenox
Anticipated Discharge: Within 24 hours
Subjective/Interval History
-
Date of Service: August 15, 2023
Patient seen and examined. Complaining of rash on her legs, improved compared to last night.
Objective Data
-
Labs:
Laboratory Results
08/15/23
05:20
WBC 5.4
Hgb 10.5 L
Hct 31.5 L
Plt Count 224
PT 13.1
INR 1.01
APTT 34.0
Sodium 135
Potassium 3.5
Chloride 111 H
Carbon Dioxide 21 L
BUN 9
Creatinine 0.7
Glucose 84
Calcium 7.6 L
Total Bilirubin 0.4
AST 165 H
ALT 321 H
Alkaline Phosphatase 107
Vital Signs:
Vital Signs
Temp Pulse Resp BP Pulse Ox
98.4 F 82 18 112/66 94
08/15/23 07:38 08/15/23 07:38 08/15/23 07:38 08/15/23 07:38 08/15/23 07:38
I&O
08/14/23 08/15/23 08/16/23
06:59 06:59 06:59
Intake Total 800 / 800 2420 / 2420
Balance 800 / 800 2420 / 2420
Review of Systems
-
History Source: Patient
All other systems: Reviewed and negative
[2023-08-15 12:00] VITALS: BP 120/84
[2023-08-15 12:40] LABS: IgG 1741 mg/dl (700-1600)
--- NOTE | 2023-08-15 13:37 | W.PN.GI.CBS2 ---
Today's Communication / Plan
-
Monitor LFTs. Advance diet to low-fat. Outpatient follow-up with Dr. Jaeger. Possible discharge in a.m. if tolerating diet and LFTs continue to improve.
Assessment / Plan
-
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
Joshua with [place]), hyperlipidemia, hypertension, GERD, anxiety/depression, chronic anemia, history of brain meningioma with resection, cholecystectomy (1999), who presented to the emergency room with complaints of right upper quadrant pain
and weakness. We are being asked to evaluate for transaminitis and ?pancreatitis. She notes somewhat subacute right upper quadrant pain over the past several months which has been intermittent now with a constant discomfort and elevated LFTs.
Labs showing total bilirubin 0.6, AST 809, ALT 485, alk phos 94. CT imaging showing possible choledocho and dilation of the common bile duct. No evidence of pancreatitis on imaging. She has also been having diarrhea prior to admission and likely
in a hypovolemic state. No recent antibiotics, sick contacts, recent travel.
Problem list:
-RUQ pain, CT imaging concerning for choledocholithiasis
-abnormal LFT's, hepatocellular pattern
-Prior CCY in 1999
-hx metastatic ovarian cancer to stomach/esophagus s/p chemo/XRT/[facility]
-mild hyponatremia
-diarrhea
-chronic constipation
-Depression with suicidal ideations, psych following
Other pertinent medical hx:
-Hypertension
-Hyperlipidemia
-GERD
-History of brain meningioma with resection
-Chronic normocytic anemia
-Abdominal hernia
08/13/23 MRCP:
Common bile duct measures up to 9.7 mm, in the upper range of normal, with top-normal considered 10 mm after cholecystectomy.
There is no convincing evidence for intraluminal bile duct calculus.
The calcification identified in the region of the distal common bile duct on CT appears to be adjacent to the common bile duct, not within the common bile duct. This calcification may however be within or obstructing the pancreatic duct in the
region of the pancreatic head.
Note is made of pancreatic divisum anatomy.
Recommendations:
-Etiology of abnormal LFTs possibly secondary to passed stone. MRCP did not reveal any convincing evidence of choledocholithiasis as above.
-Reviewed the case with Dr. Jaeger, who does not feel the patient needs an inpatient EUS/ERCP for evaluation as her LFTs are improving along with her pain
-Continue to trend LFTs
-Will arrange for outpatient follow-up in the office in 2 to [address] Jaeger for further evaluation
-Send stool studies if recurrent diarrhea
-Placed on low-fat diet today
-If LFTs remain normal and she is tolerating her diet, likely can be discharged home tomorrow with outpatient follow-up with Dr. Jaeger
-Psychiatry following for worsening depression with suicidal ideations (per their notes)
Subjective
Subjective
Date of Service: August 15, 2023
The patient was seen and examined at the bedside. She reports mild abdominal tenderness but no significant pain. LFTs are continue to trend down. MRI results noted.
Objective
Data Reviewed
Laboratory Data:
Laboratory Results
08/15/23 05:20
08/15/23 05:20
Laboratory Results
PT 13.1 Sec (11.4-14.6) 08/15/23 05:20
INR 1.01 08/15/23 05:20
APTT 34.0 Sec (23.4-35.0) 08/15/23 05:20
Magnesium 1.8 mg/dl (1.6-2.3) 08/15/23 05:20
Total Bilirubin 0.4 mg/dl (0.2-1.3) 08/15/23 05:20
AST 165 U/L (14-36) H 08/15/23 05:20
ALT 321 U/L (0-35) H 08/15/23 05:20
Alkaline Phosphatase 107 U/L (38-126) 08/15/23 05:20
Lipase 282 U/L (23-300) 08/13/23 07:54
Vital Signs and I&O:
Vital Signs
Temp Pulse Resp BP Pulse Ox
98.4 F 82 18 112/66 94
08/15/23 07:38 08/15/23 07:38 08/15/23 07:38 08/15/23 07:38 08/15/23 07:38
I&O
08/14/23 08/15/23 08/16/23
06:59 06:59 06:59
Intake Total 800 / 800 2420 / 2420
Balance 800 / 800 2420 / 2420
Physical Exam
Physical Exam
HEENT: Anicteric
Cardiology: S1 and S2 (Regular rate/rhythm)
Pulmonary: Clear
GI: Soft, Non Distended, Tender (Mildly tender in the upper abdomen right greater than left) and Normal Bowel Sounds
Neuro: Non Focal
--- NOTE | 2023-08-15 14:50 | W.PN.UPDATE ---
Update Note
Progress Note Update
Pt seen, with present, both reporting recent change of generic version of Effexor XR 225 mg caused worsening of pt's depression/mood instability. Pt on generic Effexor XR 225 mg daily for years. Pt was seen by weekend Psychiatrist and
tries on Remeron 15 mg HS, but developed an apparent drug rash- unclear if from Zosyn or Remeron (both stopped). Pt alert, calm, cooperative, with stable affect.
Imp: Major Depressive d/o, recurrent, moderate
Rec: trial of generic Pristiq 100 mg QD; Rx called in to [facility] pharmacy [place]- will be filled tomorrow. will have to bring in (non-formulary med). Will give Effexor XR 75 mg daily temporarily.
Will follow
[2023-08-15 16:00] VITALS: BP 138/83
[2023-08-15] MEDS: NSS IV (17:40)
[2023-08-15] MEDS: EFFEXOR XR 75 MG PO (17:57)
--- NOTE | 2023-08-15 18:25 | W.PN.UPDATE ---
Update Note
Progress Note Update
d/w Dr. Jaeger. will watch her lfts and consider EUS tomorrow based on results. He did want to follow as an outpatient but pt is extremely anxious and upset. wants to have it as an inpatient.
[2023-08-15 20:06] LABS: Hepatitis B Surface Antigen Negative (Negative)
[2023-08-15 20:24] LABS: Hepatitis B Core Ab, Total Negative (Negative); Hepatitis B Surface Antibody Negative
[2023-08-15 20:25] LABS: Hepatitis C Antibody Negative (Negative)
[2023-08-15 21:31] LABS: Hepatitis A IgM Antibody Negative (Negative)
[2023-08-15] MEDS: MELATONIN 5 MG PO (22:28)
[2023-08-15 23:03] VITALS: BP 120/69
--- NOTE | 2023-08-15 23:17 | PTCARENOTE ---
Pt with complaint of not sleeping well previous night. Stated she had rec'd benadryl for a rash and it had the reverse effect on her. Tonia RAMIRES made aware and ordered Melatonin 5MG . Pt was agreeable to that and rec'd it at 22:28. Pt made
aware that there is an NPO order in for after midnight. Reviewed with her the updated noted from the evening. Pt verbalized an understanding.
[2023-08-16] VITALS (8 sets, daily range): BP systolic 21–141; BP diastolic 69–86
[2023-08-16] MEDS: LOVENOX 40 MG SC (08:06)
[2023-08-16] MEDS: EFFEXOR XR 75 MG PO (08:06)
[2023-08-16 08:16] LABS: ALT (SGPT) 236 U/L (0-35); AST (SGOT) 84 U/L (14-36); Albumin 3.2 g/dl (3.5-5.0); Alkaline Phosphatase 89 U/L (38-126); Blood Urea Nitrogen 11 mg/dl (7-17); Calcium 8.1 mg/dl (8.4-10.2); Carbon Dioxide 22 mmol/L (22-30); Chloride 107 mmol/L (98-107); Estimated Creatinine Clearance 85 ml/min; Glucose 84 mg/dl (70-99); Potassium 3.4 mmol/L (3.5-5.1); Sodium 134 mmol/L (135-145); Total Bilirubin 0.3 mg/dl (0.2-1.3); Total Protein 6.2 g/dl (6.3-8.2); eGFR > 60.00
--- NOTE | 2023-08-16 09:37 | W.PN.HOSP.TC ---
Addendum entered and electronically signed by Link Cain DO 08/16/23 17:24:
Emy mendosa called this afternoon for agitation on the part of the patient and family. They are frustrated that ERCP has been scheduled then canceled and scheduled again. I spent a lot of time speaking with patient and at the bedside to
explain that the ERCP at this point in time is totally optional given improvement in LFTs and a suspected diagnosis of a passed gallstone. I spoke with gastroenterology regarding this and they agree. Moving forward, patient agrees to stay for ERCP
today. She understands plan of care. I also explained to her that she likely has IBS to explain her symptoms of diarrhea and constipation as well as bloating and abdominal discomfort. This can be addressed as an outpatient. All questions were
answered. Gisselle Hunt was present during our meeting.
Original Note:
Today's Communication/Plan
-
Replete potassium
Check magnesium
ERCP
Stool studies
Assessment / Plan
Assessment / Plan
Gen-AAOx3, NAD
HEENT-NC, AT, anicteric, clear oral mm
Neck-supple
CV-reg, no M, +S1/S2
Lungs-clear B/L
Abd-soft, NT, ND
Ext-no edema
Musculoskeletal-no cyanosis, clubbing
Skin-warm and dry, faint maculopapular rash on both thighs
Neuro-grossly non-focal
Psych-calm, cooperative
Acute hepatitis--likely due to Transaminitis from obstructing stone in duct-. LFTs trended down. No stone seen on MRI--apprec GI. Await ERCP today. Transaminases trending down. Viral hepatitis panel negative.
Drug rash -suspect may be related to piperacillin/tazobactam, discontinued. Remeron was also discontinued as well. Recommend outpatient follow-up with immunology. She did tolerate amoxicillin in the past for sore throat.
Hypokalemia -replete intravenously. Check magnesium.
Acute diarrhea -check stool studies, rule out C. difficile colitis.
hypocalcemia/hypokalemia--replete
Depression--Recently changed Effexor to a different manufacture, since then patient experience depression and tearing--apprec psych
Hypovolemic hyponatremia -134.
History of ovarian cancer--S/p surgical removal
CODE STATUS: Full code
DVT prophylaxis: Lovenox
Anticipated Discharge: > 48 hours
Subjective/Interval History
-
Date of Service: August 16, 2023
Patient seen and examined. Complaining of loose stools since last night.
Objective Data
-
Labs:
Laboratory Results
08/16/23
07:21
Sodium 134 L
Potassium 3.4 L
Chloride 107
Carbon Dioxide 22
BUN 11
Creatinine 0.5 L
Glucose 84
Calcium 8.1 L
Total Bilirubin 0.3
AST 84 H
ALT 236 H
Alkaline Phosphatase 89
Vital Signs:
Vital Signs
Temp Pulse Resp BP Pulse Ox
97.9 F 80 20 141/76 96
08/16/23 07:15 08/16/23 07:15 08/16/23 07:15 08/16/23 07:15 08/16/23 07:15
I&O
08/15/23 08/16/23 08/17/23
06:59 06:59 06:59
Intake Total 2420 / 2420 215 / 2149
Balance 2420 / 2420 2149
Review of Systems
-
History Source: Patient
All other systems: Reviewed and negative
[2023-08-16] MEDS: KCL 270 MEQ IV (10:01)
[2023-08-16 10:14] LABS: Magnesium 1.6 mg/dl (1.6-2.3)
--- NOTE | 2023-08-16 10:25 | W.PN.UPDATE ---
Update Note
Progress Note Update
Patient seen at bedside, chart reviewed, discussed with staff. Ms. Rosario tells me she slept better last night. Unfortunately, she is dealing with a lot of loose stools she tells me. GI is following and she is anticipated for an EUS today. She is
NPO. Her will be picking up the new antidepressant, desvenlafaxine, today. Once it is here in the hospital, she can begin to take in place of Effexor in hopes for a better benefit for her depressive symptoms. Today, Ms. Rosario is calm,
cooperative, and pleasant. Denies any SI/SB. She admits to feeling some anxiety related to her GI symptoms.
Impression/Plan:� Major depressive disorder, recurrent, moderate - will initiate desvenlafaxine once is able to bring in to hospital as this is a non-formulary medication. Until available, give Effexor XR 75 mg daily to avoid withdrawal
symptoms.
--- NOTE | 2023-08-16 11:00 | PTCARENOTE ---
/- Patient, and Son spoke with GI about upcoming procedure. Patient began crying and walked out of room towards elevators with her IV pole. 's voice was elevated, stating he will go to [facility] unless 'she is transferred to [place]
today and gets her procedure today. I know you can control that because they're buying you out.' After 2 [employer] and directors called in, was able to de-escalate patient and using validating conversation. Patient and agree to
proceed with care here at this time.
--- NOTE | 2023-08-16 12:18 | W.PN.UPDATE ---
Update Note
Progress Note Update
I came to see patient earlier today to explain to her her test results from today that her LFTs look markedly improved and I was going to discuss with Dr. Jaeger whether she still needs the endoscopic ultrasound based on her lab results from today. I
explained to her that she most likely passed a stone but she started then to argue with me that she does not agree with this and that she would like the procedure done as an inpatient despite the fact that her LFTs have been improving. I also
explained the risks of the procedure to her and also tried explaining to her that if the procedure is not indicated then the risk may outweigh the benefit and would defer decision to Dr. Jaeger. Again reiterated to her the fact that I was awaiting a
response from Dr. Jaeger. Once I did hear back from Dr. Jaeger, I went back to patient's room to confirm that Dr. Jaeger will try to do the EUS today and the then was at her bedside and started screaming at me saying that he wanted a definitive
answer if she was going to be definitely done today and the time that she was going to be done today, I tried explaining to him that sometimes if there are emergent procedures she may be done later today. I did calmly explain to the that he
needs to stop yelling and we can have a conversation with the patient and him once he stops yelling at me. Patient in the meantime walks out of the room with her IV pole and said that she wants to be transferred to [place] and wants to leave the
hospital. director of employee development and nursing care attendant were informed by her nurse and they convinced the patient to get back into the room. I went back in to see the patient but she wanted me out of the room.
--- NOTE | 2023-08-16 12:36 | W.PN.UPDATE ---
Update Note
Progress Note Update
Patient now back in her room and is now willing to stay and get her procedure done with Dr. Jaeger. She is also apologetic and is agreeable now to be seen by me
--- NOTE | 2023-08-16 12:52 | CM ---
CM following re: discharge planning.
Reviewed pt's chart.
PT and OT evaluations noted - pt likely has no needs, independent with functional ability.
D/C plan: home no needs.
CM will follow with discharge plan updates as hospitalization progresses
[2023-08-16 13:50] LABS: CA 125 < 5.5 U/mL (0-35)
[2023-08-16] MEDS: MELATONIN 5 MG PO (22:03)
--- NOTE | 2023-08-16 23:09 | PTCARENOTE ---
Pt returned from GI procedures at the start of the shift. Pt was very tearful and emotional upon assessment. She was crying about things that have happened in her past. Reorient pt to room and was able to get her to calm down. She did seem more
upset with her here as she kept bringing up the events to him. Pt's left and pt fell asleep for about 30 minutes. Upon awakening she is was more coherent. She stated that she has issues when she receives medications with procedures.
She kept asking if all of the events from earlier in the day actually happened. She denies pain. Melatonin given as ordered for sleep. Remains on Enhanced precautions. Call valles in reach.
[2023-08-17 07:30] VITALS: BP 131/78
[2023-08-17] MEDS: LOVENOX SC (08:11)
[2023-08-17] MEDS: EFFEXOR XR 75 MG PO (08:11)
--- NOTE | 2023-08-17 08:45 | W.PN.HOSP.TC ---
Addendum entered and electronically signed by Link Cain DO 08/17/23 12:06:
Stool positive for norovirus. Clinically improving though.
Anticipate discharge this afternoon if tolerates diet. Outpatient follow-up with PCP and GI. Follow-up with psychiatry. Abdominal x-ray in 2 weeks. LFTs in 1 to 2 weeks.
Original Note:
Today's Communication/Plan
-
Await GI input
Await labs
Assessment / Plan
Assessment / Plan
Gen-AAOx3, NAD
HEENT-NC, AT, anicteric, clear oral mm
Neck-supple
CV-reg, no M, +S1/S2
Lungs-clear B/L
Abd-soft, NT, ND
Ext-no edema
Musculoskeletal-no cyanosis, clubbing
Skin-warm and dry, faint maculopapular rash on both thighs
Neuro-grossly non-focal
Psych-calm, cooperative
Acute hepatitis--likely due to Transaminitis from obstructing stone in duct, suspected may have passed as her LFTs trended down. No stone seen on MRI--apprec GI. Viral hepatitis panel negative.
ERCP completed yesterday. Pancreatic ductal stones removed. 1 plastic stent placed into the ventral pancreatic duct. Pancreatic divisum anatomy noted. No biliary stones noted. Endoscopic ultrasound also completed. 11 mm dilated common bile
duct noted. No specimens collected.
Still n.p.o. this morning, will resume diet if okay with GI.
Drug rash -suspect may be related to piperacillin/tazobactam, discontinued. Remeron was also discontinued as well. Recommend outpatient follow-up with immunology. She did tolerate amoxicillin in the past for sore throat.
Hypokalemia -replete intravenously. Magnesium 1.6 yesterday. Labs pending for today.
Acute diarrhea -improved. Suspect she has underlying IBS given alternating episodes of constipation and diarrhea chronically. Recommend close outpatient follow-up with GI. Discussed with patient. Stool negative for C. difficile antigen and toxin.
Depression--Recently changed Effexor to a different manufacture, since then patient experience depression and tearing--apprec psych
Hypovolemic hyponatremia - labs pending for today.
History of ovarian cancer--S/p surgical removal. Patient requested CA125 to be checked, it came back normal.
CODE STATUS: Full code
DVT prophylaxis: Lovenox
Dispo -hopefully we can discharge if she tolerates her diet and if okay with GI
Anticipated Discharge: Within 24 hours
Subjective/Interval History
-
Date of Service: August 17, 2023
Patient seen and examined. Feeling much better. Slept well. Denies abdominal pain.
Objective Data
-
Labs:
Laboratory Results
08/17/23
07:01
Sodium Pending
Potassium Pending
Chloride Pending
Carbon Dioxide Pending
BUN Pending
Creatinine Pending
Glucose Pending
Calcium Pending
Total Bilirubin Pending
AST Pending
ALT Pending
Alkaline Phosphatase Pending
Vital Signs:
Vital Signs
Temp Pulse Resp BP Pulse Ox
98.2 F 79 19 131/78 100
08/17/23 07:30 08/17/23 07:30 08/17/23 07:30 08/17/23 07:30 08/17/23 08:15
I&O
08/16/23 08/17/23 08/18/23
06:59 06:59 06:59
Intake Total 2149 0 / 0
Balance 2149 0 / 0
Review of Systems
-
History Source: Patient
All other systems: Reviewed and negative
[2023-08-17 08:54] LABS: ALT (SGPT) 221 U/L (0-35); AST (SGOT) 110 U/L (14-36); Albumin 3.4 g/dl (3.5-5.0); Alkaline Phosphatase 145 U/L (38-126); Blood Urea Nitrogen 11 mg/dl (7-17); Calcium 8.3 mg/dl (8.4-10.2); Carbon Dioxide 21 mmol/L (22-30); Chloride 101 mmol/L (98-107); Estimated Creatinine Clearance 85 ml/min; Glucose 69 mg/dl (70-99); Potassium 3.6 mmol/L (3.5-5.1); Sodium 135 mmol/L (135-145); Total Bilirubin 0.4 mg/dl (0.2-1.3); Total Protein 6.5 g/dl (6.3-8.2); eGFR > 60.00
--- NOTE | 2023-08-17 10:03 | W.PN.GI.CBS2 ---
Today's Communication / Plan
-
adv diet
repeat LFTs in 1 to 2 weeks and abdominal x-ray in 2 weeks to check on the pancreatic stent (slips on chart)
Assessment / Plan
-
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
Joshua with [facility]), hyperlipidemia, hypertension, GERD, anxiety/depression, chronic anemia, history of brain meningioma with resection, cholecystectomy (1999), who presented to the emergency room with complaints of right upper quadrant pain
and weakness. We are being asked to evaluate for transaminitis and ?pancreatitis. She notes somewhat subacute right upper quadrant pain over the past several months which has been intermittent now with a constant discomfort and elevated LFTs.
Labs showing total bilirubin 0.6, AST 809, ALT 485, alk phos 94. CT imaging showing possible choledocho and dilation of the common bile duct. No evidence of pancreatitis on imaging. She has also been having diarrhea prior to admission and likely
in a hypovolemic state. No recent antibiotics, sick contacts, recent travel.
Problem list:
-RUQ pain, CT imaging concerning for choledocholithiasis
-abnormal LFT's, hepatocellular pattern
-Prior CCY in 1999
-hx metastatic ovarian cancer to stomach/esophagus s/p chemo/XRT/[facility]
-mild hyponatremia
-diarrhea
-chronic constipation
-Depression with suicidal ideations, psych following
Other pertinent medical hx:
-Hypertension
-Hyperlipidemia
-GERD
-History of brain meningioma with resection
-Chronic normocytic anemia
-Abdominal hernia
08/13/23 MRCP:
Common bile duct measures up to 9.7 mm, in the upper range of normal, with top-normal considered 10 mm after cholecystectomy.
There is no convincing evidence for intraluminal bile duct calculus.
The calcification identified in the region of the distal common bile duct on CT appears to be adjacent to the common bile duct, not within the common bile duct. This calcification may however be within or obstructing the pancreatic duct in the
region of the pancreatic head.
Note is made of pancreatic divisum anatomy.
Recommendations:
Etiology of abnormal LFTs possibly secondary to passed stone. MRCP did not reveal any convincing evidence of choledocholithiasis as above.
Status post EUS and ERCP yesterday with Dr. Jaeger no CBD stone noted, she had stones in the PD, status post pancreatic sphincterotomy and removal of the stones and a stent in the ventral pancreatic duct. also had pancreas divisum
LFTs slightly higher today but her symptoms have improved.
Advance diet if tolerates okay to DC home today and repeat LFTs in 1 to 2 weeks and abdominal x-ray in 2 weeks to check on the pancreatic stent (slips on chart)
Also had symptoms of nausea, vomiting and diarrhea which seems to have resolved stool was positive for norovirus but symptoms have resolved now and C. difficile is negative.
she does have chronic diarrhea alternating with constipation most likely has underlying IBS she is going to follow-up in GI office continue on MiraLAX as needed
will s/o and will be avialable as needed
Subjective
Subjective
Date of Service: August 17, 2023
She says that she feels much improved abdominal pain is markedly improved, no nausea vomiting, diarrhea is also resolved
Objective
Data Reviewed
Laboratory Data:
Laboratory Results
08/15/23 05:20
08/17/23 07:01
Laboratory Results
PT 13.1 Sec (11.4-14.6) 08/15/23 05:20
INR 1.01 08/15/23 05:20
APTT 34.0 Sec (23.4-35.0) 08/15/23 05:20
Magnesium 1.6 mg/dl (1.6-2.3) 08/16/23 07:21
Total Bilirubin 0.4 mg/dl (0.2-1.3) 03/06/24 07:01
AST 110 U/L (14-36) H 08/17/23 07:01
ALT 221 U/L (0-35) H 08/17/23 07:01
Alkaline Phosphatase 145 U/L (38-126) H 08/17/23 07:01
Lipase 282 U/L (23-300) 08/13/23 07:54
Vital Signs and I&O:
Vital Signs
Temp Pulse Resp BP Pulse Ox
98.2 F 79 19 131/78 100
08/17/23 07:30 08/17/23 07:30 08/17/23 07:30 08/17/23 07:30 08/17/23 08:15
I&O
08/16/23 08/17/23 08/18/23
06:59 06:59 06:59
Intake Total 2150 / 2150 0 / 0
Balance 2150 / 2150 0 / 0
Physical Exam
Physical Exam
Cardiology: Normal Sinus Rhythm
Pulmonary: Clear
GI: Soft, Non Distended, Tender (mild lower abdomen tenderness, ) and Normal Bowel Sounds
--- NOTE | 2023-08-17 11:40 | W.PN.UPDATE ---
Update Note
Progress Note Update
patient seen chart reviewed. discussed with nursing. patient's GI issues being addressed. patient awaiting arrival of pristiq which will be substituted for effexor as soon as it arrives. to bring it from local pharmacy as it is not
formulary here. dr smalls suggested consider be given to augmentation w abilify if pristiq not fully effective. dr smalls has agreed to see patient as out patient and patient is interested in continuing with him. patient was upset yesterday and
unhappy with her experience here at . encouraged her to discuss with those she feels did not treat her appropriately. she opined that bedside manner is almost as important as good in a physician and she was not content with interaction with
some of those treating her so far during this stay. patient also spoke of the stress of her life given her son's autism. she acknowledges anxiety about her son really impacts her life. she would like to find a psychiatrist for him. i will see what
i can do at [facility] to get him a prescriber with some experience in autism. will follow
--- NOTE | 2023-08-17 12:11 | W.DS.TRANS ---
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
-
Discharge Instructions:
Discharge Diagnosis/Procedures Pancreatic ductal stone, norovirus infection,
hyponatremia
Diet Low Residue
Activity As tolerated
Driving Restrictions As prior to admission
Bathing Restrictions None
Blood Work Liver function tests in 1 to 2 weeks
Others Tests Abdominal x-ray in 2 weeks
Instructions:
Stand-Alone Forms:
Changes to Home Medications: Yes
Discharge Medications:
DC Medications w/original date entered in [employer]
multivitamin (Daily Vitamin tablet) 1 tab PO DAILY 09/24/13
vitamin B complex 1 tab PO DAILY 09/24/13
cholecalciferol (vitamin D3) 50 mcg (2,000 unit) capsule (Vitamin D3) 2,000 unit PO DAILY 08/14/16
cranberry fruit 500 mg chewable tablet 500 mg PO PRN PRN uti 08/14/16
desvenlafaxine 100 mg tablet,extended release 24 hr 100 mg PO DAILY #30 tabs 08/17/23
Home Medication Changes
Stop venlafaxine
Pending Results: No
--- NOTE | 2023-08-17 13:19 | CM ---
Plan: discharge to home without needs
at the bediside and will provide transport home
== END 2023-08-17 15:18 | disposition home or self-care (01) | DRG 405 ==
LOC: 4 WEST ACU 03:29
PROVIDERS: Internal Medicine; Internal Medicine Gastroenterology; ADMITTING PHYSICIAN General Practice; ATTENDING PHYSICIAN Hospitalist; CONSULT PHYSICIAN Internal Medicine; CONSULT PHYSICIAN Psychiatry & Neurology Psychiatry; EMERGENCY PHYSICIAN Student in an Organized Health Care Education/Training Program; FAMILY PHYSICIAN Family Medicine
PROC: 0FC Hepatobiliary System and Pancreas, Extirpation (ICD-10-PCS; 2023-08-13)
PROC: 0DJ08ZZ Inspection of Upper Intestinal Tract, Via Natural or Artificial Opening Endoscopic (ICD-10-PCS; 2023-08-13)
DX: K80.50 Calculus of bile duct without cholangitis or cholecystitis without obstruction (principal); K85.90 Acute pancreatitis without necrosis or infection, unspecified; B17.9 Acute viral hepatitis, unspecified; F33.1 Major depressive disorder, recurrent, moderate; R45.851 Suicidal ideations; E87.1 Hypo-osmolality and hyponatremia; K86.89 Other specified diseases of pancreas; E86.0 Dehydration; E87.6 Hypokalemia; I10 Essential (primary) hypertension; E78.00 Pure hypercholesterolemia, unspecified; K21.9 Gastro-esophageal reflux disease without esophagitis; L27.0 Generalized skin eruption due to drugs and medicaments taken internally; E86.1 Hypovolemia
CPT/HCPCS: 74177; 74181; 74330; 76000; 80053; 80143; 82784; 83690; 83735; 85025; 85027; 85610; 85730; 86304; 86704; 86706; 86709; 86803; 87045; 87046; 87077; 87324; 87340; 87427; 87449; 87798; 89055; 93005; 96360; 96361; 97161; 99285; C1769; C2617; Q9967

== ENCOUNTER → 2023-08-24 13:16 | Outpatient (REF) | payer BC, SELFPAY ==
[2023-08-24 14:10] LABS: ALT (SGPT) 74 U/L (0-35); AST (SGOT) 31 U/L (14-36); Albumin 4.2 g/dl (3.5-5.0); Alkaline Phosphatase 105 U/L (38-126); Total Bilirubin 0.3 mg/dl (0.2-1.3); Total Protein 7.7 g/dl (6.3-8.2)
== END ==
LOC: REG 13:16
PROVIDERS: ATTENDING PHYSICIAN Nurse Practitioner Family; FAMILY PHYSICIAN Family Medicine
DX: R79.89 Other specified abnormal findings of blood chemistry (principal)
CPT/HCPCS: 36415; 80076

== ENCOUNTER → 2023-09-01 15:17 | Outpatient (REF) | payer BC, SELFPAY | LOC: RAD 15:17 | PROVIDERS: ATTENDING PHYSICIAN Nurse Practitioner Family; FAMILY PHYSICIAN Family Medicine | DX: T85.528A Displacement of other gastrointestinal prosthetic devices, implants and grafts, initial encounter (principal) | CPT/HCPCS: 74018 ==

== ENCOUNTER → 2023-09-02 11:17 | Outpatient (REF) | payer BC, SELFPAY ==
[2023-09-02 12:46] LABS: Blood Urea Nitrogen 11 mg/dl (7-17); Calcium 9.5 mg/dl (8.4-10.2); Carbon Dioxide 28 mmol/L (22-30); Chloride 98 mmol/L (98-107); Glucose 97 mg/dl (70-99); HDL Cholesterol 57 mg/dl; LDL Cholesterol, Calculated 161 mg/dl; Potassium 4.3 mmol/L (3.5-5.1); Sodium 135 mmol/L (135-145); Total Cholesterol 241 mg/dl (50-199); Triglyceride 117 mg/dl (10-149); Very Low Density Lipoprotein 23 mg/dl (0-30); eGFR > 60.00
[2023-09-02 16:53] LABS: ALT (SGPT) 26 U/L (0-35); AST (SGOT) 29 U/L (14-36); Albumin 4.3 g/dl (3.5-5.0); Alkaline Phosphatase 95 U/L (38-126); Total Bilirubin 0.3 mg/dl (0.2-1.3); Total Protein 7.8 g/dl (6.3-8.2)
[2023-09-02 17:12] LABS: Lipase 208 U/L (23-300)
== END ==
LOC: REG 11:17
PROVIDERS: ATTENDING PHYSICIAN Family Medicine
DX: C56.9 Malignant neoplasm of unspecified ovary (principal)
CPT/HCPCS: 36415; 80053; 80061; 82248; 83690

== ENCOUNTER → 2023-09-21 15:27 | Outpatient (REF) | payer BC, SELFPAY ==
[2023-09-21 16:18] LABS: % Eosinophils 1.1 % (0-6); % Immature Granulocytes 0.4 % (0-0.5); % Lymphocytes 38.5 % (20.5-51.1); % Monocytes 10.1 % (1.7-9.3); % Neutrophils 48.9 % (42.2-75.2); Absolute Basophils 0.1 10^3/uL (0-0.2); Absolute Eosinophils 0.1 10^3/uL (0-0.7); Absolute Lymphocytes 3.2 10^3/uL (1.2-3.4); Absolute Monocytes 0.8 10^3/uL (0.1-0.6); Absolute Neutrophils 4.1 10^3/uL (1.4-6.5); Hematocrit 32.7 % (37.0-47.0); Hemoglobin 10.8 g/dL (12.0-16.0); Mean Corpuscular Hgb 30.4 pg (27.0-31.0); Mean Corpuscular Volume 92.1 fL (81.0-99.0); Mean Platelet Volume 9.3 fL (7.4-10.4); Nucleated Red Blood Cells % 0 %; Platelet Count 348 10^3/uL (130-400); Red Blood Cell Count 3.55 10^6/uL (4.20-5.40); Red Cell Dist. Width 13.1 % (11.5-14.5); White Blood Cell Count 8.3 10^3/uL (4.8-10.8)
[2023-09-21 16:37] LABS: ALT (SGPT) 18 U/L (0-35); AST (SGOT) 27 U/L (14-36); Albumin 4.2 g/dl (3.5-5.0); Alkaline Phosphatase 80 U/L (38-126); Blood Urea Nitrogen 19 mg/dl (7-17); Calcium 9.2 mg/dl (8.4-10.2); Carbon Dioxide 28 mmol/L (22-30); Chloride 101 mmol/L (98-107); Glucose 136 mg/dl (70-99); Potassium 4.2 mmol/L (3.5-5.1); Sodium 134 mmol/L (135-145); Total Bilirubin 0.2 mg/dl (0.2-1.3); Total Protein 7.8 g/dl (6.3-8.2); eGFR > 60.00
[2023-09-22 19:01] LABS: CA 125 < 5.5 U/mL (0-35)
[2023-09-23 15:15] LABS: Beta-2-Microglobulin 2.3 mg/L (<=3.0)
[2023-09-25 00:04] LABS: Alpha 1 Globulin 0.24 g/dL (0.19-0.46); Alpha 2 Globulin 0.65 g/dL (0.48-1.05); Free Kappa Light Chains,Quant 50.87 mg/L (3.30-19.40); Free Lambda Light Chains,Quant 15.35 mg/L (5.71-26.30); IgA 105 mg/dL (68-408); IgG 2064 mg/dL (768-1632); IgM 45 mg/dL (35-263); Immunofixation Electrophoresis IFE Done; Kappa/Lambda Fr Light Ratio 3.31 (0.26-1.65); Monoclonal Protein 0.57 g/dL (<=0.00); Total Protein-Electrophoresis 7.6 g/dL (6.3-8.2)
== END ==
LOC: REG 15:27
PROVIDERS: ATTENDING PHYSICIAN Internal Medicine Hematology & Oncology; FAMILY PHYSICIAN Family Medicine
DX: D50.9 Iron deficiency anemia, unspecified (principal); Z85.43 Personal history of malignant neoplasm of ovary; M81.0 Age-related osteoporosis without current pathological fracture; D47.2 Monoclonal gammopathy
CPT/HCPCS: 36415; 80053; 82232; 82784; 83521; 84155; 84165; 85025; 86304; 86334

== ENCOUNTER 2023-09-30 13:31 | Outpatient (RCR) | payer BC, SELFPAY ==
[2023-09-30] MEDS: RECLAST 100 IV (14:18)
[2023-09-30 14:25] VITALS: BP 113/70
== END 2023-10-03 13:09 | disposition home or self-care (01) ==
LOC: OID 13:31
PROVIDERS: ATTENDING PHYSICIAN Internal Medicine Hematology & Oncology
DX: D47.2 Monoclonal gammopathy (principal); D50.9 Iron deficiency anemia, unspecified; M81.0 Age-related osteoporosis without current pathological fracture; Z85.43 Personal history of malignant neoplasm of ovary
CPT/HCPCS: 96365; J3489

== ENCOUNTER → 2023-09-30 15:20 | Outpatient (REF) | payer BC, SELFPAY | LOC: WDC 15:20 | PROVIDERS: ATTENDING PHYSICIAN Internal Medicine Hematology & Oncology; FAMILY PHYSICIAN Family Medicine | DX: Z12.31 Encounter for screening mammogram for malignant neoplasm of breast (principal) | CPT/HCPCS: 77063; 77067 ==

== ENCOUNTER → 2023-11-01 06:34 | Outpatient (REF) | payer BC, SELFPAY ==
[2023-11-01 08:23] LABS: ALT (SGPT) 15 U/L (0-35); AST (SGOT) 27 U/L (14-36); Albumin 4.2 g/dl (3.5-5.0); Alkaline Phosphatase 54 U/L (38-126); Amylase 147 U/L (30-110); Blood Urea Nitrogen 16 mg/dl (7-17); Carbon Dioxide 24 mmol/L (22-30); Chloride 102 mmol/L (98-107); Glucose 102 mg/dl (70-99); Lipase 573 U/L (23-300); Potassium 4.2 mmol/L (3.5-5.1); Sodium 134 mmol/L (135-145); Total Bilirubin 0.5 mg/dl (0.2-1.3); eGFR > 60.00
== END ==
LOC: REG 06:34
PROVIDERS: ATTENDING PHYSICIAN Family Medicine
DX: R10.11 Right upper quadrant pain (principal); K59.04 Chronic idiopathic constipation; K85.80 Other acute pancreatitis without necrosis or infection
CPT/HCPCS: 36415; 80053; 82150; 83690

== ENCOUNTER 2023-11-02 22:32 | Inpatient (IN) | payer BC, SELFPAY ==
[2023-11-02 17:49] VITALS: BP 122/77; BMI 24.3
--- NOTE | 2023-11-02 17:52 | EDRN ---
Pt reports she had bloodwork drawn here at today.
[2023-11-02 18:09] LABS: % Basophils 1.3 % (0-2); % Immature Granulocytes 0.2 % (0-0.5); % Lymphocytes 44.7 % (20.5-51.1); % Monocytes 12.3 % (1.7-9.3); % Neutrophils 39.5 % (42.2-75.2); Absolute Basophils 0.1 10^3/uL (0-0.2); Absolute Eosinophils 0.1 10^3/uL (0-0.7); Absolute Lymphocytes 2.8 10^3/uL (1.2-3.4); Absolute Monocytes 0.8 10^3/uL (0.1-0.6); Absolute Neutrophils 2.5 10^3/uL (1.4-6.5); Hematocrit 32.3 % (37.0-47.0); Hemoglobin 11.1 g/dL (12.0-16.0); Mean Corp Hgb Conc. 34.4 g/dL (33.0-37.0); Mean Corpuscular Hgb 30.1 pg (27.0-31.0); Mean Corpuscular Volume 87.5 fL (81.0-99.0); Nucleated Red Blood Cells % 0 %; Platelet Count 317 10^3/uL (130-400); Red Blood Cell Count 3.69 10^6/uL (4.20-5.40); Red Cell Dist. Width 12.8 % (11.5-14.5); White Blood Cell Count 6.4 10^3/uL (4.8-10.8)
[2023-11-02 18:30] LABS: ALT (SGPT) 15 U/L (0-35); AST (SGOT) 27 U/L (14-36); Albumin 4.3 g/dl (3.5-5.0); Alkaline Phosphatase 61 U/L (38-126); Blood Urea Nitrogen 16 mg/dl (7-17); Calcium 9.7 mg/dl (8.4-10.2); Carbon Dioxide 27 mmol/L (22-30); Chloride 102 mmol/L (98-107); Estimated Creatinine Clearance 67 ml/min; Glucose 119 mg/dl (70-99); Lipase 743 U/L (23-300); Potassium 4.2 mmol/L (3.5-5.1); Sodium 134 mmol/L (135-145); Total Bilirubin 0.3 mg/dl (0.2-1.3); eGFR > 60.00
--- NOTE | 2023-11-02 20:39 | ED.GENMED ---
History of Present Illness
General
Chief Complaint: Abdominal Pain
Source: patient
Exam Limitations: none
Time Seen by Provider: 11/02/23 20:28
Travel History
Have you had any contact with someone who has COVID-19?: No
Do you have any symptoms of coronavirus? Fever > 100 degrees, chills, cough, shortness of breath, sore throat, loss of taste or smell, muscle aches, or headache?: No
History of Present Illness
History of Present Illness:
This is a 63 year old female that comes in with c/o pancreatitis. States that she had blood work done yesterday that was ordered by the PCP. States that her Lipase was elevated and she was told to come to the ER. states that after the
procedure by Dr. Jaeger she had a few good days and then the pain came right back. States that she has had dry heaves and diarrhea with occasional dizziness. Denies any fever, chills, chest pain, SOB, headache, urinary burning.
Past History
Past History
ED Past Medical History: Cancer (Ovarian), GERD, HTN, Hypercholesterolemia, Psychiatric (Anxiety, depression) and Other (Meningioma, PNA, Anemia, Pancreatitis, )
ED Past Surgical History: Cholecystectomy, Gynecological ([facility] January 2013), Orthopedic (Carpal tunnel R), Urological (Ureteral stents) and Other (Santa filter with removal, Hernia repair, Brain tumor with resection)
Social History
Tobacco: Non-smoker
Alcohol: None
Drug: None
Personal:
Living: with family
Employment: Employed
Family History
Family History: Hypertension
Review of Systems
Review of Systems
All Other Systems: ROS reviewed and negative except as documented in HPI and ROS
Constitutional: Reports no symptoms; Denies fever or chills
EENT: Reports no symptoms
Respiratory: Reports no symptoms; Denies cough or trouble breathing
Cardiac: Reports no symptoms; Denies chest pain
ABD/GI: Reports abdominal pain, diarrhea and other (Dry heaves)
: Reports no symptoms; Denies dysuria, frequency or urgency
Musculoskeletal: Reports no symptoms
Skin: Reports no symptoms
Neurological: Reports dizzy (occasional); Denies headache
Psychiatric: Reports no symptoms
Phy Exam
General Physical Exam
General Presentation: well appearing and no apparent distress
General age: appears stated age
General Skin: warm and dry
General Habitus: normal
General Mental: alert
General Hydration: appears well hydrated
ENT Exam
ENT Exam: TM's normal, pharynx normal and neck supple
Eye Exam
Eye Exam: EOMI
Cardiovascular Exam
Cardiovascular Exam: regular rate/rhythm, no edema, no murmur and normal peripheral pulses
Pulmonary Exam
Pulmonary Exam: lungs clear, no respiratory distress, no rales, chest non tender, no crackles, no rhonchi, no wheezing and no cough
Gastrointestinal Exam
Gastrointestinal Exam: normal bowel sounds, soft, no organomegaly, no pulsatile mass, non distended and tender (Generalized tenderness with palpation)
Musculoskeletal Exam
Musculoskeletal Exam: full ROM and no edema
Skin Exam
Skin Exam: normal color, warm/dry, no rash and no petechia
Psychiatric Exam
Psychiatric Exam: normal mood/affect
Course
Orders/Labs/Results
Orders:
Orders
11/02/23 18:01
Complete Blood Count/With Diff Urgent
Comprehensive Metabolic Panel Urgent
Lipase Urgent
Abnormal Lab Results
11/02/23
18:01
RBC 3.69 L 10^6/uL
(4.20-5.40)
Hgb 11.1 L g/dL
(12.0-16.0)
Hct 32.3 L %
(37.0-47.0)
Absolute Monos (auto) 0.8 H 10^3/uL
(0.1-0.6)
Neutrophils % 39.5 L %
(42.2-75.2)
Monocytes % 12.3 H %
(1.7-9.3)
Sodium 134 L mmol/L
(135-145)
Glucose 119 H mg/dl
(70-99)
Lipase 743 H U/L
(23-300)
11/02/23 18:01
11/02/23 18:01
H/H slightly low. Glucose nonfasting. Lipase elevation with increase from Yesterday.
Vital Signs
Initial and Last Documented VS:
Initial Vital Signs
Temp Pulse Resp BP Pulse Ox
98 F 91 16 122/77 97
11/02/23 17:49 11/02/23 17:49 11/02/23 17:49 11/02/23 17:49 11/02/23 17:49
Last Documented Vital Signs
Temp Pulse Resp BP Pulse Ox
98 F 91 16 122/77 97
11/02/23 17:49 11/02/23 17:49 11/02/23 17:49 11/02/23 17:49 11/02/23 17:49
MDM/Problems Addressed
Differential Diagnosis Includes:
Pancreatitis,
MDM/Problems Addressed:
This is a 63 year old female that comes in with c/o pancreatitis. States that she has had abd pain and her PCP did blood work yesterday. States that she was told to come to the ER.
Patient had labs here and her Lipase has continued to elevate. Will admit. Hospitalist notified
Chronic conditions affecting care:
pancreatitis
Acute Exacerbation and/or Progression of Chronic Illness:
Pancreatitis
*Pulse Oximetry
Patient hypoxic: no
*EKG
Interpreted by ED Provider?: NA
Rate: EKG- N/A
*Sap Bw Consultant Interpretation
Rate: Sap Bw Consultant- N/A
*Critical Care Note
Total Time (30-74mins, 75-104mins- exclusive of procedures): Not Applicable
ED Attending Note
-
Portions of this chart may have been created with voice recognition software.� Occasional wrong word or��sound alike� substitutions may have occurred due to the inherent limitations of voice recognition software.
Discharge Plan
Departure
Patient Disposition: Admit
Date of Disposition: 11/02/23
Time of Disposition: 20:48
Admit to: Med/Surg
Presentation/result/management discussed w/ accepting MD/DO: Hospitalist
Patient with high blood pressure during this ER visit?: No
Covid-19: Not Applicable
Discharge Problem:
Pancreatitis, Abdominal pain
Prescriptions:
No Action
multivitamin [Daily Vitamin] 1 EACH tablet
1 tab PO DAILY
vitamin B complex 1 EACH tablet
1 tab PO DAILY
cholecalciferol (vitamin D3) [Vitamin D3] 2,000 UNIT capsule
2,000 unit PO DAILY
cranberry fruit 500 MG tablet,chewable
500 mg PO PRN PRN (Reason: uti)
desvenlafaxine 100 mg tablet extended release 24 hr
100 mg PO DAILY Qty: 30 0RF
polyethylene glycol 3350 [Miralax] 17 gram Powder In Packet
17 g PO DAILY
vilazodone 10 mg Tablet
10 mg PO DAILY
Linzess 145 mcg Capsule
145 mcg PO DAILY
Interventions
Interventions:
*Risk Screen - Suicide Last Done: 11/02/23 17:49
*Neglect/Abuse Screening Last Done: 11/02/23 17:49
ED- Fall Risk Assessment Last Done: 11/02/23 17:49
Discharge Date and Time
Print Language: MONGOLIAN
--- NOTE | 2023-11-02 21:35 | HPS.HSE ---
Family Physician
-
Family Physician: Hernan Pan
Chief Complaint
-
Abdominal Pain
History of Present Illness
This is a 63 year old female patient with a past medical history of anxiety/ depression and pancreatitis who presents today for elevated lipase. She states she had an ERCP with stone removal from the pancreatic duct and pancreatic duct stent
placement in 08/[address] Jaeger. A few days after this procedure, her RUQ abdominal pain returned. She states since then, her pain has remained constant. She describes it as a dull pain that sometimes radiates across her abdomen. She has
associated nausea and decrease in appetite. Due to this pain, she contacted her PCP 1 week ago who requested her to get blood work. 3 days ago, they received the results which revealed an elevated lipase, which prompted her to come to the ED. She
denies fevers, sweats or chills.
Medical History
Past Medical History
Past Medical History: Reports Other
Additional Past Medical History:
Essential Hypertension
Hyperlipidemia
Anxiety/Depression
Ovarian Cancer
Brain Tumor
Past Surgical History: Reports Other
Additional Past Surgical History:
Cholecystectomy
Hysterectomy
Ureteral Stents
Hernia Repair
[place] Filter
Brain Tumor Resection
Social History
Tobacco: Non-smoker
Alcohol: None
Drug: None
Personal:
Living: With Family
Employment: Employed
Family History
Family History: Not pertinent
Allergies / Home Medications
Allergies reflects when Allergies were last updated in [facility].
Home Medications with original date entered in [facility]
Allergy/Medication List:
Allergies
Allergy/AdvReac Type Severity Reaction Status Date / Time
mirtazapine [From Remeron] Allergy Rash Verified 11/02/23 17:49
Fqbesql-THA-AaF Reductase Allergy 'Quivering Verified 11/02/23 17:49
Inhibitor legs'
[Zzugmqa-Scz-Tof Reductase
Inhibitor]
CONTRAST MRI Allergy Unknown Uncoded 11/02/23 17:49
Home Medications
multivitamin (Daily Vitamin tablet) 1 tab PO DAILY 09/24/13
vitamin B complex 1 tab PO DAILY 09/24/13
cholecalciferol (vitamin D3) 50 mcg (2,000 unit) capsule (Vitamin D3) 2,000 unit PO DAILY 08/14/16
cranberry fruit 500 mg chewable tablet 500 mg PO PRN PRN uti 08/14/16
desvenlafaxine 100 mg tablet,extended release 24 hr 100 mg PO DAILY #30 tabs 08/17/23
linaclotide 145 mcg capsule (Linzess) 145 mcg PO DAILY 09/30/23
polyethylene glycol 3350 17 gram oral powder packet (Miralax) 17 g PO DAILY 09/30/23
vilazodone 10 mg tablet 10 mg PO DAILY 09/30/23
Review of Systems
-
A 12 point ROS was completed and negative except as noted: Yes
Constitutional: Denies Fever or Chills
Respiratory: Denies Cough or Trouble Breathing
Cardiac: Denies Chest Pain or Palpitations
Abdomen/GI: Reports See HPI
Physical Exam
Vital Signs
Vital Signs
Temp Pulse Resp BP Pulse Ox
98 F 91 16 122/77 97
11/02/23 17:49 11/02/23 17:49 11/02/23 17:49 11/02/23 17:49 11/02/23 17:49
Physical Exam
General: Comfortable and Conversant
HEENT: Anicteric and Moist mucous membranes
Respiratory: Clear and Non Labored Respirations
Cardiac: S1/S2 and Regular Rhythm; No Tachycardia
GI: Soft and Tender (Mild epigstric and right upper quadrants)
Rectal: Deferred by Provider
Musculoskeletal: No Clubbing, No Cyanosis and No Edema
Skin: Warm and Dry
Neuro: Awake, Alert, Oriented and Nonfocal/grossly intact
Psych: Calm
Laboratory Results
-
11/02/23 18:01
11/02/23 18:01
Laboratory Results
Total Bilirubin 0.3 mg/dl (0.2-1.3) 11/02/23 18:01
AST 27 U/L (14-36) 11/02/23 18:
ALT 15 U/L (0-35) 11/02/23 18:
Alkaline Phosphatase 61 U/L (38-126) 11/02/23 18:01
Lipase 743 U/L (23-300) H 11/02/23 18:01
Data Reviewed
-
Lab Data: Labs Reviewed by me
Impression/Plan
-
Recurrent Pancreatitis
-Patient has prior history of pancreatic ductal stones s/p pancreatic duct stent in August 2023
-Check Abd US
-Continue NPO/IVFs
-Consult GI
Anxiety/Depression
-Hold oral meds for now
DVT proph: Lovenox
Code Status: Full Code
--- NOTE | 2023-11-02 21:52 | PHANOTE ---
11/02/2023, med rec tech, spoke to pt. to obtain their med. history; pt. does not know the strength of the prescription meds. that they are taking; pt.'s meds. are not in pharmacy fill or ECW; pt.'s pharmacy closed at time of interview.
[2023-11-02 21:53] VITALS: BMI 25.2
--- NOTE | 2023-11-02 22:26 | W.PN.UPDATE ---
Update Note
Progress Note Update
HPI: 63 year old female patient with a past medical history of anxiety/ depression, pancreatitis, recent pancreatic ductal stones s/p pancreatic duct stent in August 2023; p/w chronic abdominal pain and elevated lipase level.
She was sent in by the GI office outpatient.
She had an ERCP with stone removal from the pancreatic duct and pancreatic duct stent placement in 08/[address] Jaeger.
A few days after this procedure, her RUQ abdominal pain returned. She states since then, her pain has remained constant. She describes it as a dull pain that sometimes radiates across her abdomen. She has associated nausea and decrease in appetite.
Due to this pain, she contacted her PCP 1 week ago who requested her to get blood work. 3 days ago, they received the results which revealed an elevated lipase.
She denies fevers, sweats or chills.
A/P:
# Chronic abd pain, possible recurrent pancreatitis
# Recent pancreatic ductal stones s/p pancreatic duct stent in August 2023;
Check Abd US
Continue NPO/IVF with RL
Follow lipase level
Consult GI
# Anxiety/Depression
Hold oral meds for now
DVT proph: Lovenox
Code Status: Full Code
[2023-11-02] MEDS: LR 1000 IV (23:58)
[2023-11-03 00:20] VITALS: BP 105/82
[2023-11-03 05:40] LABS: Hematocrit 32.4 % (37.0-47.0); Hemoglobin 10.7 g/dL (12.0-16.0); Mean Corpuscular Hgb 30.1 pg (27.0-31.0); Mean Corpuscular Volume 91.3 fL (81.0-99.0); Mean Platelet Volume 9.5 fL (7.4-10.4); Platelet Count 293 10^3/uL (130-400); Red Blood Cell Count 3.55 10^6/uL (4.20-5.40); Red Cell Dist. Width 12.8 % (11.5-14.5); White Blood Cell Count 5.6 10^3/uL (4.8-10.8)
[2023-11-03 06:05] LABS: ALT (SGPT) 14 U/L (0-35); AST (SGOT) 25 U/L (14-36); Albumin 3.8 g/dl (3.5-5.0); Alkaline Phosphatase 53 U/L (38-126); Blood Urea Nitrogen 14 mg/dl (7-17); Calcium 9.1 mg/dl (8.4-10.2); Carbon Dioxide 26 mmol/L (22-30); Chloride 104 mmol/L (98-107); Estimated Creatinine Clearance 78 ml/min; Glucose 94 mg/dl (70-99); Lipase 354 U/L (23-300); Potassium 4.1 mmol/L (3.5-5.1); Sodium 137 mmol/L (135-145); Total Bilirubin 0.4 mg/dl (0.2-1.3); Total Protein 7.2 g/dl (6.3-8.2); eGFR > 60.00
--- NOTE | 2023-11-03 06:57 | CON.GI ---
Addendum entered and electronically signed by Nikki Servin MD 11/03/23 12:44:
I saw and examined the patient.
The HOUSE SITTER or PA's note was reviewed and I agree with the note.
Comment: 63-year-old female with history of ovarian cancer with mets to the esophagus and stomach status postradiation and chemo and 20 05/2013, history of cholecystectomy, recent admission August 2023 for elevated LFTs and lipase, noted to have
pancreatic stone status post ERCP/EUS, sphincterotomy and stone retrieval pancreatic duct stent placement, also noted to have pancreatic divisum at that time, did well after procedure now presenting with right upper quadrant abdominal pain which has
been chronic and intermittent since August. Pain in the upper abdomen, no particular relation to food or bowel movements. Some nausea but no vomiting. She does report chronic intermittent dysphagia to solids/pills, has been going on since 2012 but
worse now. Lost about 5 pounds since last admission. She also reports chronic constipation, she takes Senokot 2 tablets a day, would have 1 large bowel movement followed by multiple small bowel movements with incomplete evacuation, denies any
blood in the stool or black stool. Previous constipation and was on Linzess but stopped it due to diarrhea. Recently started on Prozac and Abilify, no other new medication. No NSAID use.
This admission in the emergency room, LFTs in normal range but slight elevation in lipase up to 2 times upper limit of normal. Abdominal ultrasound without any significant abnormality.
-Right upper quadrant abdominal pain with history of previous pancreatic ductal stones requiring ERCP/pancreatic duct stent placement, questionable chronic pancreatitis on previous imaging
This admission, normal LFTs but slight elevation in lipase which is trending down. Abdominal ultrasound unremarkable.
Will do MRI/MRCP to evaluate the pancreas and pancreatic/biliary ducts
Will follow-up on the imaging. N.p.o. for now, once imaging done based on results, will start her on clear liquid diet and advance as tolerated.
-Chronic dysphagia, will need esophagram with barium tablet at some point either inpatient or outpatient.
-Chronic constipation, previous Linzess now on stopped due to diarrhea as per patient
Continue Senokot 2 tablets a day and monitor bowel movements.
Will follow-up on the above testing.
Original Note:
Consultation
-
Date/Time Consultation Requested: 11/02/23 2315
Date/Time Consultation Performed: 11/03/23 0900
Requesting Provider: Jacqui Nation PA-C
Performing Provider: KEYLA Desir, Nikki Servin MD
Reason for Consultation: abdominal pain
Medical History
Chief Complaint / HPI
Chief Complaint: abdominal pain
History of Present Illness:
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
Joshua with [facility]), hyperlipidemia, hypertension, GERD, anxiety/depression, chronic anemia, history of brain meningioma with resection, cholecystectomy (1999). She was admitted in August initially with passed stone. She was noted with some
agitation and frustration about plan but did proceed for EUS on 08/15 with no lesions in stomach normal duodenum, pancreatic stone in pancreatic head, dilation of CBD up to 11mm, main pancreatic duct no pathology of left lobe of liver. ERCP with CBD
dilation, pancreatic divisum, calculi appearing suggestive panc stone with removal, sphincterotomy completed and ventral pancretic duct swept with stent placement in ventral panc duct. Biliary tree swept nothing found. She had follow up X ray with
no evidence of stent Pt had follow up in September with Kateryna Hernandez with improved pain but complaints of constipation. She now presents with elevated lipase, wt loss and persistent abdominal pain. On admission lipase was 743 with decrease to 354.
US in ER pending.
In reviewing with patient she admits to improved pain for several days after August admission then recurrent symptoms. She related no pattern of pain and difficulty stating what makes pain better or worse. She admits to issue with diarrhea and
constipation with urgency, feeling of incomplete evacuation, and frequent stools after BM. She had increase stool with Linzess now on Senna 2 tabs daily. She also admits to chronic dysphagia worse with pills and breads. She has had symptoms since
radiation years ago but now worse. + 5 lbs wt loss. She has occasional dry heaves, dizziness but no GERD, blood or black in stools.
Past Medical History
Past Medical History: Cancer (ovarian cancer with mets to esophagus and stomach s/p chemo and radiation, brain tumor), GERD, HTN, Hypercholesterolemia, Psychiatric (anxiety/depression) and Other (anemia, hernia)
Past Surgical History: Cholecystectomy, Gynecological (hysterectomy), Urological (ureteral stents) and Other (hernia repair, darian filter then removal, brain tumor resection)
Social History
Tobacco: Non-Smoker
Alcohol: None
Drug: None
Personal:
Living: With Family
Employment: Employed (works at )
Family History
Family History: Reviewed & Not Pertinent
Allergies / Home Medications
Allergy/AdvReac Type Severity Reaction Status Date / Time
mirtazapine [From Remeron] Allergy Rash Verified 11/02/23 17:49
Otbdkym-XVX-OgV Reductase Allergy 'Quivering Verified 11/02/23 17:49
Inhibitor legs'
[Yakndtp-Ufp-Mzz Reductase
Inhibitor]
CONTRAST MRI Allergy Unknown Uncoded 11/02/23 17:49
�Medication �Instructions �Recorded
Abilify 1 tab PO HS 11/02/23
Calcium + Magnesium 3 tab PO DAILY 11/02/23
Prozac 1 cap PO DAILY 11/02/23
cholecalciferol (vitamin D3) 50 50 mcg PO DAILY 11/02/23
mcg (2,000 unit) tablet
melatonin 1 - 2 gummy PO HSPRN PRN sleep 11/02/23
sennosides 8.6 mg tablet (Senokot) 8.6 mg PO BID 11/02/23
therapeutic multivitamin 1 tab PO DAILY 11/02/23
vitamin B complex 1 tab PO DAILY 11/02/23
zoledronic acid 5 mg/100 mL in 0 mg IV DIRECTED 11/02/23
mannitol 5 %-water intravenous
piggybck (Reclast)
Review of Systems
-
History Source: Patient
Constitutional: Reports Weight Loss (5 lb)
EENT: Reports No Symptoms
Respiratory: Reports No Symptoms
Cardiac: Reports No Symptoms
Abdomen/GI: Reports Abdominal Pain, Nausea, Diarrhea and Constipated
: Reports No Symptoms
Musculoskeletal: Reports No Symptoms
Skin: Reports No Symptoms
Neurological: Reports Dizzy and Weakness
Endocrine: Reports No Symptoms
Hematologic/Lymphatic: Reports No Symptoms
Vital Signs
Temp Pulse Resp BP Pulse Ox
98.1 F 79 16 105/82 97
11/03/23 00:20 11/03/23 00:20 11/03/23 00:20 11/03/23 00:20 11/03/23 00:20
Physical Exam
Exam
General: Well Developed, Well Nourished and No Apparent Distress
HEENT: Normocephalic and Anicteric
Respiratory: Clear
Cardiac: Regular Rhythm
GI: Soft, Non Distended and Tender (left upper abdomen)
Musculoskeletal: No Clubbing and No Cyanosis
Skin: Warm and Dry
Neuro: Awake, Alert and AO x 3
Psych: Calm
Results
WBC 5.6 10^3/uL (4.8-10.8) 11/03/23 05:05
Hgb 10.7 g/dL (12.0-16.0) L 11/03/23 05:05
Hct 32.4 % (37.0-47.0) L 11/03/23 05:05
MCV 91.3 fL (81.0-99.0) 11/03/23 05:05
Plt Count 293 10^3/uL (130-400) 11/03/23 05:05
Absolute Neuts (auto) 2.5 10^3/uL (1.4-6.5) 11/02/23 18:01
Sodium 137 mmol/L (135-145) 11/03/23 05:05
Potassium 4.1 mmol/L (3.5-5.1) 11/03/23 05:05
Chloride 104 mmol/L (98-107) 11/03/23 05:05
Carbon Dioxide 26 mmol/L (22-30) 11/03/23 05:05
BUN 14 mg/dl (7-17) 11/03/23 05:05
Creatinine 0.6 mg/dL (0.6-1.0) 11/03/23 05:05
Calcium 9.1 mg/dl (8.4-10.2) 11/03/23 05:05
Total Bilirubin 0.4 mg/dl (0.2-1.3) 11/03/23 05:05
AST 25 U/L (14-36) 11/03/23 05:05
ALT 14 U/L (0-35) 11/03/23 05:05
Alkaline Phosphatase 53 U/L (38-126) 11/03/23 05:05
Lipase 354 U/L (23-300) H 11/03/23 05:05
Diagnostic Image Results:
11/02/23 US abdomen pending
09/01/23 abd Xray
2 frontal radiographs of the abdomen were obtained
There are surgical clips in the right upper quadrant consistent with prior cholecystectomy
There is a moderate amount of gas in nondilated loops of bowel.
There is no bowel dilatation to suggest obstruction.
There is a large amount of feces throughout the colon suggesting constipation
There is a large amount of feces throughout the colon suggesting constipation
08/13/2023 CT A/P w/IV contrast: IMPRESSION:
'1. 5 mm hyperattenuating lesion in the region of the distal common bile duct, with associated mild dilation of the common bile duct. This may represent a common bile duct stone, and is new compared to prior CT dated 01/09/2020. Consider MRCP as
clinically appropriate.
2. Laxity of the anterior abdominal wall, allowing for protrusion of multiple bowel loops. No evidence of incarceration or intestinal obstruction.'
Prior GI Procedures:
EGD: 08/11/2020 Dr. Patel: Normal esophagus. Biopsied. Z-line regular, 35 cm from the incisors. Moderate antral gastritis. Biopsied. Bilious gastric fluid. Fluid aspiration performed. Normal examined duodenum. Biopsied. Path showing mild chronic
gastritis, negative for H pylori, celiac, EoE, or Lilly's.
09/05/2015 Dr. Patel: Normal esophagus. Several biopsies were obtained for evaluation of eosinophilic esophagitis Z-line regular, 39 cm from the incisors. Normal stomach. Biopsied. A single gastric polyp. Biopsied.
Normal examined duodenum. Biopsied. Path showing chronic antral inflammation, negative for H pylori, celiac, EoE, Lilly's. Benign gastric polyps.
�Colonoscopy: 08/11/2020 Dr. Patel: Two 3 to 4 mm benign polyps in the rectum. Non-bleeding internal hemorrhoids. The examined portion of the ileum was normal. The examined portion of the ileum was normal.
09/05/2015 Dr. Patel: One 6 mm adenomatous polyp in the mid ascending colon. Biopsied. The examined portion of the ileum was normal.
Prior GI Procedures:
08/16/23 ERCP - The common bile duct was moderately dilated.
- Pancreatic divisum anatomy.
- One calculi appearing material suggestive of
pancreatic stones were found. Complete removal was
accomplished.
- A pancreatic sphincterotomy was performed.
- The ventral pancreatic duct was swept.
- One plastic stent was placed into the ventral
pancreatic duct.
08/16/23 EUS - Normal esophagus.
- No gross lesions in the entire stomach.
- Normal duodenal bulb, first portion of the duodenum
and second portion of the duodenum.
- Findings suggestive of pancreatic stones were
identified in the pancreatic head.
- There was dilation in the common bile duct which
measured up to 11 mm.
- Main pancreatic duct (MPD) diameter was measured.
- There was no evidence of significant pathology in
the left lobe of the liver.
- No specimens collected.
Assessment / Plan
-
Pt is a 63-year-old female with a past medical history significant for ovarian cancer with metastasis to the stomach and esophagus status post total abdominal hysterectomy and radiation therapy in 2012 with [facility] (currently follows with
Joshua with [facility]), hyperlipidemia, hypertension, GERD, anxiety/depression, chronic anemia, history of brain meningioma with resection, cholecystectomy (1999). She was admitted in August initially with passed stone. She was noted with some
agitation and frustration about plan but did proceed for EUS on 08/15 with no lesions in stomach normal duodenum, pancreatic stone in pancreatic head, dilation of CBD up to 11mm, main pancreatic duct no pathology of left lobe of liver. ERCP with CBD
dilation, pancreatic divisum, calculi appearing suggestive panc stone with removal, sphincterotomy completed and ventral pancreatic duct swept with stent placement in ventral panc duct. Biliary tree swept nothing found. She had follow up X ray
with no evidence of stent Pt had follow up in September with Kateryna Hernandez with improved pain but complaints of constipation. She now presents with elevated lipase, wt loss and persistent abdominal pain. On admission lipase was 743 with decrease to
354. She also has complaints of worsening dysphagia, constipation with some diarrhea and urgency.
US in ER pending
-abdominal pain
-elevated lipase
-hx pancreatic stone with prior ERCP and stenting in August
-pancreatic divisum anatomy on prior EUS
-worsening of chronic dysphagia
-constipation/diarrhea
Other pertinent medical hx:
-Prior CCY in 1999
-hx metastatic ovarian cancer to stomach/esophagus s/p chemo/XRT/H[facility]RY
-Hypertension
-Hyperlipidemia
-GERD
-Depression/anxiety- recent med adjustments
-History of brain meningioma with resection
-Chronic normocytic anemia
-Abdominal hernia
PLAN:
Etiology of pain with elevated lipase related to recurrent pancreatitis vs pancreatic stone and pancreatic divisum vs other
await US completed in ER
plan for MRI with MRCP
pain control per hospitalist
NPO
cont LR at 100ml/hr
will need eventual esophagram with barium tablet for worsening dysphagia-- may be stricturing with hx radiation in past
monitor stool pattern cont senna BID
will follow
-
-
Thank you for consultation and allowing me to participate in the patient's care. Please call the electronic health records specialist GI physician during the after hours with any questions or concerns.
[2023-11-03 08:54] VITALS: BP 118/78
--- NOTE | 2023-11-03 09:02 | W.PN.HOSP.TC ---
Today's Communication/Plan
-
GI evaluation for further planning
PPI
Assessment / Plan
Assessment / Plan
63-year-old female with history of pancreatitis presented with abdominal pain. Patient had an ERCP with stone removal from the pancreatic duct and stent placement August [address] Jaeger. Few days after the procedure she had pain mostly dull aching
pain. She also has loss of appetite and some nausea associated. Lipase was slightly elevated therefore she was sent to ER.
CVS: S1-S2 normal
Chest: CTA B/L
Abdomen: Soft, mild epigastric discomfort,Bowel sounds present
Extremities: No edema, normal pulses
PITCH FILLER: Non focal exam
# Abdominal pain
Possibly from recurrent pancreatitis
Slightly elevated lipase-trending down
ERCP with pancreatic ductal stone removal and stent placement August 2023
Patient is status post cholecystectomy in 1999
N.p.o. with IV fluids
GI consulted
Continue PPI as she also has a history of GERD-patient was on Aciphex at 1 point and 'weaned herself off.'
# Anemia-check iron studies and B12
# Anxiety and depression-Abilify, Prozac
# Hyperlipidemia-statin intolerant
# History of metastatic ovarian cancer to GE junction s/p chemo/XRT/[facility] in 2012 at [facility]
Now follows with Dr. Mansi Andersen
# IVC filter placement and removal
# Meningioma with history of resection 2016
# Osteoporosis-on Reclast
# DVT prophylaxis-Lovenox
# Full code
Anticipated Discharge: 24 - 48 hours
Subjective/Interval History
-
Date of Service: November 03, 2023
Objective Data
-
Labs:
Laboratory Results
11/03/23
05:05
WBC 5.6
Hgb 10.7 L
Hct 32.4 L
Plt Count 293
Sodium 137
Potassium 4.1
Chloride 104
Carbon Dioxide 26
BUN 14
Creatinine 0.6
Glucose 94
Calcium 9.1
Total Bilirubin 0.4
AST 25
ALT 14
Alkaline Phosphatase 53
Vital Signs:
Vital Signs
Temp Pulse Resp BP Pulse Ox
98.1 F 69 18 118/78 99
11/03/23 08:54 11/03/23 08:54 11/03/23 08:54 11/03/23 08:54 11/03/23 08:54
I&O
11/02/23 11/03/23 11/04/23
06:59 06:59 06:59
Intake Total 800 / 800
Balance 800 / 800
[2023-11-03] MEDS: LR 1000 IV ×2 (09:03→17:57)
[2023-11-03] MEDS: PROTONIX IV 40 MG IV (09:04)
[2023-11-03] MEDS: NSS (PRESERVATIVE FREE) 10 ML IV (09:04)
[2023-11-03 10:00] LABS: Iron 52 ug/dl (37-170)
[2023-11-03 10:10] LABS: Percent Saturation 17 % (20-50); Total Iron Binding Capacity 296 ug/dl (265-497)
[2023-11-03 12:14] LABS: Ferritin 91.9 ng/ml (11.1-264.0)
[2023-11-03 12:28] LABS: Vitamin B12 416 pg/ml (239-931)
[2023-11-03 14:00] VITALS: BP 112/72
[2023-11-03] MEDS: DILAUDID 0.25 MG IV ×2 (15:19)
[2023-11-03] MEDS: ZOFRAN 4 MG IV (15:20)
[2023-11-03 15:38] VITALS: BP 120/74
[2023-11-03 15:44] VITALS: BP 131/67
[2023-11-03 15:58] VITALS: BMI 24.5
[2023-11-03] MEDS: LOVENOX 40 MG SC (18:00)
[2023-11-03] MEDS: SENOKOT 17.1999999999999993 MG PO (20:45)
[2023-11-03] MEDS: TYLENOL 650 MG PO (20:50)
[2023-11-03 23:06] VITALS: BP 109/67
[2023-11-04] MEDS: LR 1000 IV (04:17)
[2023-11-04] MEDS: DILAUDID 0.25 MG IV ×4 (05:58→20:30)
[2023-11-04] MEDS: FLUSH (NSS) 2 FLUSH IV (05:59)
[2023-11-04 06:20] LABS: Hemoglobin 10.7 g/dL (12.0-16.0); Mean Corp Hgb Conc. 33.4 g/dL (33.0-37.0); Mean Corpuscular Hgb 29.8 pg (27.0-31.0); Mean Corpuscular Volume 89.1 fL (81.0-99.0); Mean Platelet Volume 9.7 fL (7.4-10.4); Platelet Count 295 10^3/uL (130-400); Red Blood Cell Count 3.59 10^6/uL (4.20-5.40); Red Cell Dist. Width 12.9 % (11.5-14.5); White Blood Cell Count 5.7 10^3/uL (4.8-10.8)
[2023-11-04 07:33] VITALS: BP 97/63
--- NOTE | 2023-11-04 09:13 | W.PN.GI.CBS2 ---
Today's Communication / Plan
-
MRI MRCP today
Adv to CLD post above
Increase PPI to BID
Add miralax
Will follow with you
Assessment / Plan
-
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
Joshua with [facility]), hyperlipidemia, hypertension, GERD, anxiety/depression, chronic anemia, history of brain meningioma with resection, cholecystectomy (1999). She was admitted in August initially with passed stone. She was noted with some
agitation and frustration about plan but did proceed for EUS on 08/15 with no lesions in stomach normal duodenum, pancreatic stone in pancreatic head, dilation of CBD up to 11mm, main pancreatic duct no pathology of left lobe of liver. ERCP with CBD
dilation, pancreatic divisum, calculi appearing suggestive panc stone with removal, sphincterotomy completed and ventral pancreatic duct swept with stent placement in ventral panc duct. Biliary tree swept nothing found. She had follow up X ray
with no evidence of stent Pt had follow up in September with Kateryna Hernandez with improved pain but complaints of constipation. She now presents with elevated lipase, wt loss and persistent abdominal pain. On admission lipase was 743 with decrease to
354. She also has complaints of worsening dysphagia, constipation with some diarrhea and urgency.
Impression
-abdominal pain
-elevated lipase
concerning for chronic pancreatitis
-hx pancreatic stone with prior ERCP and stenting in August
-pancreatic divisum anatomy on prior EUS
-worsening of chronic dysphagia
-constipation/diarrhea
-Prior CCY in 1999
-hx metastatic ovarian cancer to stomach/esophagus s/p chemo/XRT/HENRY
-Hypertension
-Hyperlipidemia
-GERD
-Depression/anxiety- recent med adjustments
-History of brain meningioma with resection
-Chronic normocytic anemia
-Abdominal hernia
Recommendations
Etiology of pain with elevated lipase related to recurrent pancreatitis vs pancreatic stone and pancreatic divisum vs other
Await MRI/MRCP today
Diet to be advanced after above as tolerates
C/w IVF
Increase PPI to BID IV
C/w senna BID add miralax
Consider EGD or UGI series for chronic dysphagia which can be done as OP basis
Will follow with you
Subjective
Subjective
Date of Service: November 04, 2023
Her RUQ abd pain continues to be 6 out of 10 burning sensation. She has not been having good BMs despite senna BID. She does have some solid dysphagia daily but no impactions. She does not use PPI
Objective
Data Reviewed
Laboratory Data:
Laboratory Results
11/04/23 05:36
11/03/23 05:05
Laboratory Results
Total Bilirubin 0.4 mg/dl (0.2-1.3) 11/03/23 05:05
AST 25 U/L (14-36) 11/03/23 05:05
ALT 14 U/L (0-35) 11/03/23 05:05
Alkaline Phosphatase 53 U/L (38-126) 11/03/23 05:05
Lipase 354 U/L (23-300) H 11/03/23 05:05
Vital Signs and I&O:
Vital Signs
Temp Pulse Resp BP Pulse Ox
98.5 F 76 17 97/63 96
11/04/23 07:33 11/04/23 07:33 11/04/23 07:33 11/04/23 07:33 11/04/23 07:33
I&O
11/03/23 11/04/23 11/05/23
06:59 06:59 06:59
Intake Total 800 / 800 460 / 460
Balance 800 / 800 460 / 460
Physical Exam
Physical Exam
GEN: No acute distress, conversant, pleasant
HEENT: anicteric, extraocular movements intact, clear oropharynx without exudates
GI: soft, non-distended, RUQ tender to palpation, normal active bowel sounds, no hepatosplenomegaly
EXT: warm, well perfused, trace edema bilaterally
NEURO: AAOx3, non-focal
[2023-11-04] MEDS: PROTONIX IV 40 MG IV (09:33)
[2023-11-04] MEDS: SENOKOT 17.1999999999999993 MG PO ×2 (09:34→20:38)
[2023-11-04] MEDS: NSS (PRESERVATIVE FREE) 10 ML IV (09:34)
--- NOTE | 2023-11-04 12:59 | W.PN.HOSP.TC ---
Today's Communication/Plan
-
IVF
Await GI plans re PD stone
Assessment / Plan
Assessment / Plan
63-year-old female with history of pancreatitis presented with abdominal pain. Patient had an ERCP with stone removal from the pancreatic duct and stent placement August [address] Jaeger. Few days after the procedure she had pain mostly dull aching
pain. She also has loss of appetite and some nausea associated. Lipase was slightly elevated therefore she was sent to ER.
CVS: S1-S2 normal
Chest: CTA B/L
Abdomen: Soft, mild epigastric discomfort,Bowel sounds present
Extremities: No edema, normal pulses
CUSTOMS COMPLIANCE SPECIALIST: Non focal exam
Dull pain- Pt felt her 'stone came back'
MRI-distended ventral pancreatic duct and side branch ducts in the pancreatic head with suggestion of 5.3 mm obstructing stone in the ventral PD. Mild biliary dilatation without evidence of obstructing stone in the CBD. Cholecystectomy. Mild
hepatomegaly. Small to moderate number of simple and hemorrhagic left renal cyst.
# Abdominal pain
Likely from PD stone
Needs ERCP/Stent
Mild pancreatitis due to above
ERCP with pancreatic ductal stone removal and stent placement August 2023
Patient is status post cholecystectomy in 1999
N.p.o. with IV fluids till GI plans clear.
GI consulted and following
Continue PPI as she also has a history of GERD-patient was on Aciphex at 1 point and 'weaned herself off.'
# Anemia-mild GARRETT
# Anxiety and depression-Abilify, Prozac
# Hyperlipidemia-statin intolerant
# History of metastatic ovarian cancer to GE junction s/p chemo/XRT/HENRY in 2012 at [place]
Now follows with Dr. Mansi Andersen
# IVC filter placement and removal
# Meningioma with history of resection 2016
# Osteoporosis-on Reclast
# DVT prophylaxis-Lovenox
# Full code
D/W at bed side
D/W RN
D/W GI
Anticipated Discharge: 24 - 48 hours
Subjective/Interval History
-
Date of Service: November 04, 2023
Objective Data
-
Labs:
Laboratory Results
11/04/23 11/04/23
05:36 12:06
WBC 5.7
Hgb 10.7 L
Hct 32.0 L
Plt Count 295
Sodium Pending
Potassium Pending
Chloride Pending
Carbon Dioxide Pending
BUN Pending
Creatinine Pending
Glucose Pending
Calcium Pending
Total Bilirubin Pending
AST Pending
ALT Pending
Alkaline Phosphatase Pending
Vital Signs:
Vital Signs
Temp Pulse Resp BP Pulse Ox
98.5 F 76 17 97/63 96
11/04/23 07:33 11/04/23 07:33 11/04/23 07:33 11/04/23 07:33 11/04/23 07:33
I&O
11/03/23 11/04/23 11/05/23
06:59 06:59 06:59
Intake Total 800 / 800 460 / 460
Balance 800 / 800 460 / 460
[2023-11-04 13:00] LABS: ALT (SGPT) 14 U/L (0-35); AST (SGOT) 26 U/L (14-36); Albumin 3.8 g/dl (3.5-5.0); Alkaline Phosphatase 60 U/L (38-126); Blood Urea Nitrogen 11 mg/dl (7-17); Carbon Dioxide 28 mmol/L (22-30); Chloride 100 mmol/L (98-107); Estimated Creatinine Clearance 67 ml/min; Glucose 81 mg/dl (70-99); Lipase 212 U/L (23-300); Sodium 134 mmol/L (135-145); Total Bilirubin 0.5 mg/dl (0.2-1.3); Total Protein 7.1 g/dl (6.3-8.2); eGFR > 60.00
--- NOTE | 2023-11-04 13:15 | W.PN.UPDATE ---
Update Note
Progress Note Update
Results of MRI d/w pt
May need ERCP with stent placement by Dr Jaeger/advanced endoscopist. Ok to resume diet
Will monitor over holiday weekend and reassess on Tuesday. PT is ok to stay and understands that timing of her procedure is to be determined.
Will follow with you. Hospitalist and RN updated
[2023-11-04] MEDS: D5/0.45%NACL 1000 IV (14:45)
--- NOTE | 2023-11-04 14:48 | PN.CDI ---
Addendum entered and electronically signed by Anthony Stephenson MD 11/04/23 16:32:
are we treating a lab value or a patient?
NO further documentation
Original Note:
CDI
- -
CDI:
Physician Documentation Request
Admit Date: 11/02/23 22:32
Dear Doctor Seema,
Please review the following and provide your response in the progress notes.
Clinical Indicators:
Patient admitted with recurrent pancreatitis found to have a obstructing pancreatic stone
Sodium levels are as below /Did get LR IVFs
11/02/23 11/04/23
18:01 12:06
Sodium 134 L 134 L
Based on the above, could you clarify in the progress notes, the appropriate diagnosis, if significant, that supports the above abnormalities and additional evaluation, monitoring and/or treatment rendered:
Hyponatremia
Abnormal lab value only
Other
Use of terms such as suspected, likely, concern for, or probable (associated with a specific diagnosis that is being evaluated, monitored, or treated as if it exists) are acceptable and can be coded in the inpatient setting, when documented at the
time of discharge.
Thank you,
Michaela England RN
CDI Specialist
[facility]
Please use your independent medical judgment in providing your response.
[2023-11-04 15:14] VITALS: BP 111/74
--- NOTE | 2023-11-04 15:23 | CM ---
Patient admitted from home with pancreatitis. Met her in room.She said she works at . She lives with spouse in 2 level home with 2 steps to enter. there is half bath on direct entry midwife. Full flight of steps to full bathroom and bedroom. She is
independent.
No VNA or SNF. she has shower seat and shower rails.
Pharmacy: [facility] in [place]
PCP Dr. Hernan Pan
PLAN:home after ERCP and stent placement.
[2023-11-04 15:42] VITALS: BMI 24.5
[2023-11-04] MEDS: LOVENOX 40 MG SC (16:47)
[2023-11-04 23:38] VITALS: BP 101/63
[2023-11-05] MEDS: D5/0.45%NACL 1000 IV (03:33)
[2023-11-05 07:16] VITALS: BP 114/64
[2023-11-05] MEDS: NSS (PRESERVATIVE FREE) 10 ML IV ×2 (08:19→20:51)
[2023-11-05] MEDS: SENOKOT 17.1999999999999993 MG PO (08:20)
[2023-11-05] MEDS: PROTONIX IV 40 MG IV ×2 (08:20→20:51)
[2023-11-05 08:42] LABS: Blood Urea Nitrogen 9 mg/dl (7-17); Carbon Dioxide 28 mmol/L (22-30); Chloride 101 mmol/L (98-107); Estimated Creatinine Clearance 78 ml/min; Glucose 103 mg/dl (70-99); Lipase 270 U/L (23-300); Potassium 3.9 mmol/L (3.5-5.1); Sodium 135 mmol/L (135-145); eGFR > 60.00
[2023-11-05] MEDS: DILAUDID 0.25 MG IV ×3 (09:41→20:52)
--- NOTE | 2023-11-05 10:13 | W.PN.GI.CBS2 ---
Today's Communication / Plan
-
Adv to FLD
Add carafate
Plan for EGD and ERCP with Dr Jaeger. Anticipate Tuesday but final timing TBD
Will follow with you
Assessment / Plan
-
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
Joshua with [facility]), hyperlipidemia, hypertension, GERD, anxiety/depression, chronic anemia, history of brain meningioma with resection, cholecystectomy (1999). She was admitted in August initially with passed stone. She was noted with some
agitation and frustration about plan but did proceed for EUS on 08/15 with no lesions in stomach normal duodenum, pancreatic stone in pancreatic head, dilation of CBD up to 11mm, main pancreatic duct no pathology of left lobe of liver. ERCP with CBD
dilation, pancreatic divisum, calculi appearing suggestive panc stone with removal, sphincterotomy completed and ventral pancreatic duct swept with stent placement in ventral panc duct. Biliary tree swept nothing found. She had follow up X ray
with no evidence of stent Pt had follow up in September with Kateryna Hernandez with improved pain but complaints of constipation. She now presents with elevated lipase, wt loss and persistent abdominal pain. On admission lipase was 743 with decrease to
354. She also has complaints of worsening dysphagia, constipation with some diarrhea and urgency.
Impression
- Abdominal pain
- Elevated lipase with PD stent
Concerning for chronic pancreatitis
-hx pancreatic stone with prior ERCP and stenting in August
-pancreatic divisum anatomy on prior EUS
-worsening of chronic dysphagia
-constipation/diarrhea
-Prior CCY in 1999
-hx metastatic ovarian cancer to stomach/esophagus s/p chemo/XRT/HENRY
-Hypertension
-Hyperlipidemia
-GERD
-Depression/anxiety- recent med adjustments
-History of brain meningioma with resection
-Chronic normocytic anemia
-Abdominal hernia
Recommendations
- Results of MRI/MRCP discussed with patient
- Plan for ERCP to address PD stone and EGD for dysphagia and h/o ovarian mets to esophagus next week, anticipate Tuesday however I made it clear to patient that timing is still to be determined pending acuity of other GI cases
- Adv to full liquid diet
- C/w PPI BID, add carafate
- C/w senna and miralax
Will follow with you
Subjective
Subjective
Date of Service: November 05, 2023
This AM her pain is 7 out of 10 with some nausea. She has not had pain meds since 1999 night prior and no anti-emetics. Tolerating CLD without BM
Objective
Data Reviewed
Laboratory Data:
Laboratory Results
11/04/23 05:36
11/05/23 07:16
Laboratory Results
Total Bilirubin 0.5 mg/dl (0.2-1.3) 11/04/23 12:06
AST 26 U/L (14-36) 11/04/23 12:06
ALT 14 U/L (0-35) 11/04/23 12:06
Alkaline Phosphatase 60 U/L (38-126) 11/04/23 12:06
Lipase 270 U/L (23-300) 11/05/23 07:16
Vital Signs and I&O:
Vital Signs
Temp Pulse Resp BP Pulse Ox
97.7 F 76 17 114/64 97
11/05/23 07:16 11/05/23 07:16 11/05/23 07:16 11/05/23 07:16 11/05/23 07:16
I&O
11/04/23 11/05/23 11/06/23
06:59 06:59 06:59
Intake Total 460 / 460 945 / 945
Balance 460 / 460 945 / 945
Physical Exam
Physical Exam
GEN: No acute distress, conversant, pleasant
HEENT: anicteric, extraocular movements intact, clear oropharynx without exudates
GI: soft, non-distended, RUQ mildly tender to palpation, normal active bowel sounds, no hepatosplenomegaly
EXT: warm, well perfused, trace edema bilaterally
NEURO: AAOx3, non-focal
[2023-11-05] MEDS: MIRALAX 17 GRAMS PO (12:17)
[2023-11-05] MEDS: CARAFATE SUSPENSION 1 GM PO ×2 (12:17→16:14)
--- NOTE | 2023-11-05 12:44 | PTOTSP ---
Speech Language Pathology
63F with significant PMH of ovarian cancer w/ mets to esophagus and stomach s/p RXT and chemo 05/2013. Since then has had chronic intermittent dysphagia w/ solids/pills that has worsened. Endorses globus sensation around sternum, consistent with
possible esophageal dysphagia. GI has EGD planned for next week.
P/w grossly functional oropharyngeal swallow this date. Defer to GI recommendations of full liquid diet re: dysphagia appears to be primarily esophageal. ICU SPECIALIST service to follow up x1 s/p EGD next week.
Recommend:
1. Defer to GI recommendations for full liquid diet
2. Meds crushed vs whole in puree when cleared to do so
3. General aspiration and reflux precautions
4. ICU SPECIALIST service to follow up x1 s/p EGD next week
[2023-11-05] MEDS: PROZAC 10 MG PO (13:23)
--- NOTE | 2023-11-05 13:42 | W.PN.HOSP.TC ---
Today's Communication/Plan
-
Await ERCP
Assessment / Plan
Assessment / Plan
63-year-old female with history of pancreatitis presented with abdominal pain. Patient had an ERCP with stone removal from the pancreatic duct and stent placement August [address] Jaeger. Few days after the procedure she had pain mostly dull aching
pain. She also has loss of appetite and some nausea associated. Lipase was slightly elevated therefore she was sent to ER.
CVS: S1-S2 normal
Chest: CTA B/L
Abdomen: Soft, mild epigastric discomfort,Bowel sounds present
Extremities: No edema, normal pulses
ELECTRONICS DETAIL DRAFTSPERSON: Non focal exam
Right Sided pain
MRI-distended ventral pancreatic duct and side branch ducts in the pancreatic head with suggestion of 5.3 mm obstructing stone in the ventral PD. Mild biliary dilatation without evidence of obstructing stone in the CBD. Cholecystectomy. Mild
hepatomegaly. Small to moderate number of simple and hemorrhagic left renal cyst.
# Abdominal pain
Likely from PD stone
Needs ERCP/Stent
Mild pancreatitis due to above
ERCP with pancreatic ductal stone removal and stent placement August 2023
Patient is status post cholecystectomy in 1999
Clears
GI consulted and following
Plan for EUS ERCP Tuesday
Continue PPI as she also has a history of GERD-patient was on Aciphex at 1 point and 'weaned herself off.'
Morphine for pain
# Anemia-mild GARRETT
# Anxiety and depression-Abilify, Prozac
# Hyperlipidemia-statin intolerant
# History of metastatic ovarian cancer to GE junction s/p chemo/XRT/HENRY in 2012 at [place]
Now follows with Dr. Mansi Andersen
# IVC filter placement and removal
# Meningioma with history of resection 2016
# Osteoporosis-on Reclast
# DVT prophylaxis-Lovenox
# Full code
D/W at bed side
D/W RN
Anticipated Discharge: > 48 hours
Subjective/Interval History
-
Date of Service: November 05, 2023
Objective Data
-
Labs:
Laboratory Results
11/05/23
07:16
Sodium 135
Potassium 3.9
Chloride 101
Carbon Dioxide 28
BUN 9
Creatinine 0.6
Glucose 103 H
Calcium 9.0
Vital Signs:
Vital Signs
Temp Pulse Resp BP Pulse Ox
97.7 F 76 17 114/64 97
11/05/23 07:16 11/05/23 07:16 11/05/23 07:16 11/05/23 07:16 11/05/23 07:16
I&O
11/04/23 11/05/23 11/06/23
06:59 06:59 06:59
Intake Total 460 / 460 945 / 945
Balance 460 / 460 945 / 945
[2023-11-05 15:30] VITALS: BP 120/75
[2023-11-05] MEDS: LOVENOX 40 MG SC (17:23)
[2023-11-05] MEDS: SENOKOT PO (20:51)
[2023-11-05] MEDS: MELATONIN 5 MG PO (21:24)
[2023-11-05] MEDS: ABILIFY 2 MG PO (21:24)
[2023-11-05] MEDS: CARAFATE SUSPENSION PO (21:24)
[2023-11-05 23:27] VITALS: BP 98/59
[2023-11-06 07:00] VITALS: BP 99/61
[2023-11-06] MEDS: DILAUDID 0.25 MG IV ×3 (07:07→20:39)
[2023-11-06] MEDS: THERAGRAN 1 TABLET PO (08:08)
[2023-11-06] MEDS: VITAMIN D3 (cholecalciferol) 50 MCG PO (08:08)
[2023-11-06] MEDS: SENOKOT 17.1999999999999993 MG PO ×2 (08:08→20:29)
[2023-11-06] MEDS: PROZAC 10 MG PO (08:08)
[2023-11-06] MEDS: NSS (PRESERVATIVE FREE) 10 ML IV ×2 (08:08→20:30)
[2023-11-06] MEDS: B COMPLEX w/VITAMIN C 1 CAPLET PO (08:08)
[2023-11-06] MEDS: PROTONIX IV 40 MG IV ×2 (08:08→20:29)
[2023-11-06] MEDS: CARAFATE SUSPENSION PO ×5 (08:12→21:54)
[2023-11-06] MEDS: MIRALAX PO (08:13)
--- NOTE | 2023-11-06 11:37 | W.PN.GI.CBS2 ---
Today's Communication / Plan
-
Pt and family frustrated about uncertainty of timing for ERCP
Above case d/w Dr Jaeger today.
Adv to low fat diet given improvement in abd pain
Trial zenpep
Assessment / Plan
-
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
Joshua with [facility]), hyperlipidemia, hypertension, GERD, anxiety/depression, chronic anemia, history of brain meningioma with resection, cholecystectomy (1999). She was admitted in August initially with passed stone. She was noted with some
agitation and frustration about plan but did proceed for EUS on 08/15 with no lesions in stomach normal duodenum, pancreatic stone in pancreatic head, dilation of CBD up to 11mm, main pancreatic duct no pathology of left lobe of liver. ERCP with CBD
dilation, pancreatic divisum, calculi appearing suggestive panc stone with removal, sphincterotomy completed and ventral pancreatic duct swept with stent placement in ventral panc duct. Biliary tree swept nothing found. She had follow up X ray
with no evidence of stent Pt had follow up in September with Kateryna Hernandez with improved pain but complaints of constipation. She now presents with elevated lipase, wt loss and persistent abdominal pain. On admission lipase was 743 with decrease to
354. She also has complaints of worsening dysphagia, constipation with some diarrhea and urgency.
Impression
- Abdominal pain
- Elevated lipase with PD stent
Concerning for chronic pancreatitis
-hx pancreatic stone with prior ERCP and stenting in August
-pancreatic divisum anatomy on prior EUS
-worsening of chronic dysphagia
-constipation/diarrhea
-Prior CCY in 1999
-hx metastatic ovarian cancer to stomach/esophagus s/p chemo/XRT/HENRY
-Hypertension
-Hyperlipidemia
-GERD
-Depression/anxiety- recent med adjustments
-History of brain meningioma with resection
-Chronic normocytic anemia
-Abdominal hernia
Recommendations
- Plan for ERCP to address PD stone and EGD for dysphagia and h/o ovarian mets to esophagus next week, anticipate Tuesday however I made it clear to patient that timing is still to be determined pending acuity of other GI cases
- Adv to low fat diet
- Trial of zenpep
- C/w PPI BID, add carafate
- C/w senna. Hold miralax
- Above case d/w Dr Jaeger
Will follow with you
Subjective
Subjective
Date of Service: November 06, 2023
Her abd pain is improved to 4 out of 10 in intensity. Tolerating diet without nausea/vomiting. Had small loose brown BM yesterday. Declined any more miralax today
Objective
Data Reviewed
Laboratory Data:
Laboratory Results
11/04/23 05:36
11/05/23 07:16
Laboratory Results
Total Bilirubin 0.5 mg/dl (0.2-1.3) 11/04/23 12:06
AST 26 U/L (14-36) 11/04/23 12:06
ALT 14 U/L (0-35) 11/04/23 12:06
Alkaline Phosphatase 60 U/L (38-126) 11/04/23 12:06
Lipase 270 U/L (23-300) 11/05/23 07:16
Vital Signs and I&O:
Vital Signs
Temp Pulse Resp BP Pulse Ox
97.8 F 77 17 99/61 97
11/06/23 07:00 11/06/23 07:00 11/06/23 07:00 11/06/23 07:00 11/06/23 07:00
I&O
11/05/23 11/06/23 11/07/23
06:59 06:59 06:59
Intake Total 945 / 945 1140 / 1140
Balance 945 / 945 1140 / 1140
Physical Exam
Physical Exam
GEN: No acute distress, conversant, pleasant
HEENT: anicteric, extraocular movements intact, clear oropharynx without exudates
GI: soft, non-distended, RUQ mildly tender to palpation, normal active bowel sounds, no hepatosplenomegaly
EXT: warm, well perfused, no edema bilaterally
NEURO: AAOx3, non-focal
--- NOTE | 2023-11-06 14:25 | W.PN.HOSP.TC ---
Today's Communication/Plan
-
ERCP awaited
Diet advanced
Assessment / Plan
Assessment / Plan
63-year-old female with history of pancreatitis presented with abdominal pain. Patient had an ERCP with stone removal from the pancreatic duct and stent placement August [address] Jaeger. Few days after the procedure she had pain mostly dull aching
pain. She also has loss of appetite and some nausea associated. Lipase was slightly elevated therefore she was sent to ER.
CVS: S1-S2 normal
Chest: CTA B/L
Abdomen: Soft, mild epigastric discomfort,Bowel sounds present
Extremities: No edema, normal pulses
CONSULTING MANAGER: Non focal exam
Right Sided pain
MRI-distended ventral pancreatic duct and side branch ducts in the pancreatic head with suggestion of 5.3 mm obstructing stone in the ventral PD. Mild biliary dilatation without evidence of obstructing stone in the CBD. Cholecystectomy. Mild
hepatomegaly. Small to moderate number of simple and hemorrhagic left renal cyst.
# Abdominal pain
Likely from PD stone
Needs ERCP/Stent
Mild pancreatitis due to above
ERCP with pancreatic ductal stone removal and stent placement August 2023
Patient is status post cholecystectomy in 1999
Low fat diet
GI consulted and following
Plan for EUS ERCP Tuesday
Continue PPI as she also has a history of GERD-patient was on Aciphex at 1 point and 'weaned herself off.'
Dilaudid for pain
3Diarrhea- Check C diff
Check Electrolytes and mag
# Anemia-mild GARRETT
# Anxiety and depression-Abilify, Prozac
# Hyperlipidemia-statin intolerant
# History of metastatic ovarian cancer to GE junction s/p chemo/XRT/HENRY in 2012 at [place]
Now follows with Dr. Mansi Andersen
# IVC filter placement and removal
# Meningioma with history of resection 2016
# Osteoporosis-on Reclast
# DVT prophylaxis-Lovenox
# Full code
D/W RN
Anticipated Discharge: > 48 hours
Subjective/Interval History
-
Date of Service: November 06, 2023
Objective Data
-
Labs:
Laboratory Results
11/06/23
14:24
Sodium Pending
Potassium Pending
Chloride Pending
Carbon Dioxide Pending
BUN Pending
Creatinine Pending
Glucose Pending
Calcium Pending
Vital Signs:
Vital Signs
Temp Pulse Resp BP Pulse Ox
97.8 F 77 17 99/61 97
11/06/23 07:00 11/06/23 07:00 11/06/23 07:00 11/06/23 07:00 11/06/23 07:00
I&O
11/05/23 11/06/23 11/07/23
06:59 06:59 06:59
Intake Total 945 / 945 1140 / 1140
Balance 945 / 945 1140 / 1140
[2023-11-06 15:00] VITALS: BP 104/72
[2023-11-06 15:10] LABS: Blood Urea Nitrogen 9 mg/dl (7-17); Calcium 10.1 mg/dl (8.4-10.2); Carbon Dioxide 25 mmol/L (22-30); Chloride 103 mmol/L (98-107); Estimated Creatinine Clearance 67 ml/min; Glucose 111 mg/dl (70-99); Magnesium 1.6 mg/dl (1.6-2.3); Potassium 3.9 mmol/L (3.5-5.1); Sodium 138 mmol/L (135-145); eGFR > 60.00
[2023-11-06] MEDS: ZENPEP DELAYED RELEASE CAPSULE 1 CAPSULE PO ×2 (16:34→21:48)
[2023-11-06] MEDS: LOVENOX 40 MG SC (16:34)
[2023-11-06] MEDS: MAGNESIUM SULFATE 102 GRAMS IV (16:34)
[2023-11-06] MEDS: MELATONIN 5 MG PO (21:48)
[2023-11-06] MEDS: ABILIFY 2 MG PO (21:48)
[2023-11-06 23:45] VITALS: BP 90/59
[2023-11-07 05:00] VITALS: BP 112/65
[2023-11-07] MEDS: DILAUDID 0.25 MG IV ×3 (06:11→19:11)
[2023-11-07 07:05] VITALS: BP 102/73
[2023-11-07] MEDS: THERAGRAN 1 TABLET PO (07:20)
[2023-11-07] MEDS: PROZAC 10 MG PO (07:20)
[2023-11-07] MEDS: VITAMIN D3 (cholecalciferol) 50 MCG PO (07:20)
[2023-11-07] MEDS: CARAFATE SUSPENSION PO ×4 (07:20→21:16)
[2023-11-07] MEDS: B COMPLEX w/VITAMIN C 1 CAPLET PO (07:20)
[2023-11-07] MEDS: ZENPEP DELAYED RELEASE CAPSULE 1 CAPSULE PO ×4 (07:20→21:18)
[2023-11-07] MEDS: SENOKOT PO ×2 (07:21→21:16)
[2023-11-07] MEDS: PROTONIX IV 40 MG IV ×2 (07:21→19:10)
[2023-11-07] MEDS: NSS (PRESERVATIVE FREE) 10 ML IV ×2 (07:21→19:11)
[2023-11-07] MEDS: MIRALAX PO (07:21)
[2023-11-07 08:19] LABS: Hemoglobin 11.9 g/dL (12.0-16.0); Mean Corpuscular Hgb 30.4 pg (27.0-31.0); Mean Corpuscular Volume 89.3 fL (81.0-99.0); Mean Platelet Volume 10.4 fL (7.4-10.4); Platelet Count 310 10^3/uL (130-400); Red Blood Cell Count 3.92 10^6/uL (4.20-5.40); Red Cell Dist. Width 12.8 % (11.5-14.5); White Blood Cell Count 6.2 10^3/uL (4.8-10.8)
[2023-11-07 08:39] LABS: ALT (SGPT) 13 U/L (0-35); AST (SGOT) 28 U/L (14-36); Albumin 4.1 g/dl (3.5-5.0); Alkaline Phosphatase 57 U/L (38-126); Blood Urea Nitrogen 11 mg/dl (7-17); Calcium 9.4 mg/dl (8.4-10.2); Carbon Dioxide 24 mmol/L (22-30); Chloride 103 mmol/L (98-107); Estimated Creatinine Clearance 78 ml/min; Glucose 97 mg/dl (70-99); Potassium 4.2 mmol/L (3.5-5.1); Sodium 135 mmol/L (135-145); Total Bilirubin 0.5 mg/dl (0.2-1.3); Total Protein 7.7 g/dl (6.3-8.2); eGFR > 60.00
--- NOTE | 2023-11-07 11:29 | W.PN.HOSP.TC ---
Today's Communication/Plan
-
Await ERCP/stent
CW pain meds
CW diet
Assessment / Plan
Assessment / Plan
63-year-old female with history of pancreatitis presented with abdominal pain. Patient had an ERCP with stone removal from the pancreatic duct and stent placement August [address] Jaeger. Few days after the procedure she had pain mostly dull aching
pain. She also has loss of appetite and some nausea associated. Lipase was slightly elevated therefore she was sent to ER.
CVS: S1-S2 normal
Chest: CTA B/L
Abdomen: Soft, mild epigastric discomfort,Bowel sounds present
Extremities: No edema, normal pulses
HOME SERVICE CONSULTANT: Non focal exam
MRI-distended ventral pancreatic duct and side branch ducts in the pancreatic head with suggestion of 5.3 mm obstructing stone in the ventral PD. Mild biliary dilatation without evidence of obstructing stone in the CBD. Cholecystectomy. Mild
hepatomegaly. Small to moderate number of simple and hemorrhagic left renal cyst.
# Abdominal pain
Likely from PD stone
Needs ERCP/Stent
Mild pancreatitis due to above
ERCP with pancreatic ductal stone removal and stent placement August 2023
Patient is status post cholecystectomy in 1999
Low fat diet
GI consulted and following
Plan for EUS ERCP Tuesday
Continue PPI as she also has a history of GERD-patient was on Aciphex at 1 point and 'weaned herself off.'
Dilaudid for pain
# Anemia-mild GARRETT
# Anxiety and depression-Abilify, Prozac
# Hyperlipidemia-statin intolerant
# History of metastatic ovarian cancer to GE junction s/p chemo/XRT/HENRY in 2012 at [place]
Now follows with Dr. Mansi Andersen
# IVC filter placement and removal
# Meningioma with history of resection 2016
# Osteoporosis-on Reclast
# DVT prophylaxis-Lovenox
# Full code
D/W RN
Anticipated Discharge: 24 - 48 hours
Subjective/Interval History
-
Date of Service: November 07, 2023
Intermittent abdominal pain but still needing pain medications.
Eating low-fat diet without nausea not much abdominal pain but she is having loose stools.
No fever.
Objective Data
-
Labs:
Laboratory Results
11/07/23
06:34
WBC 6.2
Hgb 11.9 L
Hct 35.0 L
Plt Count 310
Sodium 135
Potassium 4.2
Chloride 103
Carbon Dioxide 24
BUN 11
Creatinine 0.6
Glucose 97
Calcium 9.4
Total Bilirubin 0.5
AST 28
ALT 13
Alkaline Phosphatase 57
Vital Signs:
Vital Signs
Temp Pulse Resp BP Pulse Ox
97.8 F 81 16 102/73 96
11/07/23 07:05 11/07/23 07:05 11/07/23 07:05 11/07/23 07:05 11/07/23 07:05
I&O
11/06/23 11/07/23 11/08/23
06:59 06:59 06:59
Intake Total 1140 / 1140 1320 / 1320
Balance 1140 / 1140 1320 / 1320
Review of Systems
-
Respiratory: Denies Trouble Breathing
Cardiac: Denies Chest Pain
Neuro: Denies Dizzy
Physical Exam
-
General: No Apparent Distress
HEENT: Moist Mucous Membranes
Respiratory: Clear to Auscultation
Cardiac: Regular Rhythm and S1/S2
GI: Soft, Normal Bowel Sounds and Tender (epigastric)
Neuro: AO x 3
Data Reviewed
-
Labs: Labs Reviewed by me
--- NOTE | 2023-11-07 14:04 | W.PN.GI.CBS2 ---
Today's Communication / Plan
-
Case d/w Dr Jaeger
Plan for ERCP and EGD tomorrow
[facility]
Assessment / Plan
-
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
Joshua with [facility]), hyperlipidemia, hypertension, GERD, anxiety/depression, chronic anemia, history of brain meningioma with resection, cholecystectomy (1999). She was admitted in August initially with passed stone. She was noted with some
agitation and frustration about plan but did proceed for EUS on 08/15 with no lesions in stomach normal duodenum, pancreatic stone in pancreatic head, dilation of CBD up to 11mm, main pancreatic duct no pathology of left lobe of liver. ERCP with CBD
dilation, pancreatic divisum, calculi appearing suggestive panc stone with removal, sphincterotomy completed and ventral pancreatic duct swept with stent placement in ventral panc duct. Biliary tree swept nothing found. She had follow up X ray
with no evidence of stent Pt had follow up in September with Kateryna Hernandez with improved pain but complaints of constipation. She now presents with elevated lipase, wt loss and persistent abdominal pain. On admission lipase was 743 with decrease to
354. She also has complaints of worsening dysphagia, constipation with some diarrhea and urgency.
Impression
- Abdominal pain
- Elevated lipase
Concerning for chronic pancreatitis
-hx pancreatic stone with prior ERCP and stenting in August
-pancreatic divisum anatomy on prior EUS
-worsening of chronic dysphagia
-constipation/diarrhea
-Prior CCY in 1999
-hx metastatic ovarian cancer to stomach/esophagus s/p chemo/XRT/[facility]
-Hypertension
-Hyperlipidemia
-GERD
-Depression/anxiety- recent med adjustments
-History of brain meningioma with resection
-Chronic normocytic anemia
-Abdominal hernia
Recommendations
- Plan for ERCP to address PD stone and EGD for chronic dysphagia and h/o remote ovarian ca mets to esophagus
- Above case d/w Dr Jaeger who agrees with timing for tomorrow
- C/w LFD, CLINICAL LABORATORY TECHNOLOGIST at [facility]
- C/w zenpep
- C/w PPI BID, stop carafate
- C/w senna. Hold miralax
Will follow with you
Subjective
Subjective
Date of Service: November 07, 2023
Her pain today is 8 out of 10 in nature. Tolerating low fat diet
Objective
Data Reviewed
Laboratory Data:
Laboratory Results
11/07/23 06:34
11/07/23 06:34
Laboratory Results
Magnesium 1.6 mg/dl (1.6-2.3) 11/06/23 14:44
Total Bilirubin 0.5 mg/dl (0.2-1.3) 11/07/23 06:34
AST 28 U/L (14-36) 11/07/23 06:34
ALT 13 U/L (0-35) 11/07/23 06:34
Alkaline Phosphatase 57 U/L (38-126) 11/07/23 06:34
Lipase 270 U/L (23-300) 11/05/23 07:16
Vital Signs and I&O:
Vital Signs
Temp Pulse Resp BP Pulse Ox
97.8 F 81 16 102/73 96
11/07/23 07:05 11/07/23 07:05 11/07/23 07:05 11/07/23 07:05 11/07/23 07:05
I&O
11/06/23 11/07/23 11/08/23
06:59 06:59 06:59
Intake Total 1140 / 1140 1320 / 1320
Balance 1140 / 1140 1320 / 1320
Physical Exam
Physical Exam
GEN: No acute distress, conversant, pleasant
HEENT: anicteric, extraocular movements intact, clear oropharynx without exudates
GI: soft, non-distended, RUQ tender to palpation, normal active bowel sounds, no hepatosplenomegaly
EXT: warm, well perfused, no edema bilaterally
NEURO: AAOx3, non-focal
[2023-11-07 15:00] VITALS: BP 98/59
[2023-11-07] MEDS: LOVENOX 40 MG SC (16:59)
[2023-11-07] MEDS: ABILIFY 2 MG PO (21:18)
[2023-11-07] MEDS: MELATONIN 5 MG PO (21:18)
[2023-11-07 23:26] VITALS: BP 99/65
[2023-11-08] VITALS (11 sets, daily range): BP systolic 90–140; BP diastolic 55–79
[2023-11-08] MEDS: DILAUDID 0.25 MG IV ×3 (06:40→23:26)
[2023-11-08] MEDS: PROTONIX IV 40 MG IV ×2 (07:50→21:52)
[2023-11-08] MEDS: NSS (PRESERVATIVE FREE) 10 ML IV ×2 (07:50→21:53)
[2023-11-08] MEDS: CARAFATE SUSPENSION PO ×4 (07:51→23:25)
[2023-11-08] MEDS: ZENPEP DELAYED RELEASE CAPSULE 1 CAPSULE PO (07:51)
[2023-11-08] MEDS: THERAGRAN 1 TABLET PO (07:51)
[2023-11-08] MEDS: VITAMIN D3 (cholecalciferol) 50 MCG PO (07:51)
[2023-11-08] MEDS: B COMPLEX w/VITAMIN C 1 CAPLET PO (07:51)
[2023-11-08] MEDS: PROZAC 10 MG PO (07:51)
[2023-11-08] MEDS: SENOKOT PO ×2 (07:51→21:56)
--- NOTE | 2023-11-08 11:57 | W.PN.HOSP.TC ---
Today's Communication/Plan
-
For ERCP today
Assessment / Plan
Assessment / Plan
63-year-old female with history of pancreatitis presented with abdominal pain. Patient had an ERCP with stone removal from the pancreatic duct and stent placement August [address] Jaeger. Few days after the procedure she had pain mostly dull aching
pain. She also has loss of appetite and some nausea associated. Lipase was slightly elevated therefore she was sent to ER.
MRI-distended ventral pancreatic duct and side branch ducts in the pancreatic head with suggestion of 5.3 mm obstructing stone in the ventral PD. Mild biliary dilatation without evidence of obstructing stone in the CBD. Cholecystectomy. Mild
hepatomegaly. Small to moderate number of simple and hemorrhagic left renal cyst.
# Abdominal pain
Likely from PD stone
Needs ERCP/Stent
Mild pancreatitis due to above
ERCP with pancreatic ductal stone removal and stent placement August 2023
Patient is status post cholecystectomy in 1999
Low fat diet
GI consulted and following
Plan for EUS ERCP today
Continue PPI as she also has a history of GERD-patient was on Aciphex at 1 point and 'weaned herself off.'
Dilaudid for pain
# Anemia-mild GARRETT
# Anxiety and depression-Abilify, Prozac
# Hyperlipidemia-statin intolerant
# History of metastatic ovarian cancer to GE junction s/p chemo/XRT/[facility] in 2012 at [place]
Now follows with Dr. Mansi Andersen
# IVC filter placement and removal
# Meningioma with history of resection 2016
# Osteoporosis-on Reclast
# DVT prophylaxis-Lovenox
# Full code
D/W RN
Anticipated Discharge: 24 - 48 hours
Subjective/Interval History
-
Date of Service: November 08, 2023
Abdominal pain only requiring IV Dilaudid. No nausea vomiting. No fever or chills.
Objective Data
-
Vital Signs:
Vital Signs
Temp Pulse Resp BP Pulse Ox
98 F 83 18 124/74 97
11/08/23 07:07 11/08/23 07:07 11/08/23 07:07 11/08/23 07:07 11/08/23 07:07
I&O
11/07/23 11/08/23 11/09/23
06:59 06:59 06:59
Intake Total 1320 / 1320 930 / 930
Balance 1320 / 1320 930 / 930
Review of Systems
-
Respiratory: Denies Trouble Breathing
Cardiac: Denies Chest Pain
Neuro: Denies Dizzy
Physical Exam
-
General: No Apparent Distress
HEENT: Moist Mucous Membranes
Respiratory: Clear to Auscultation
Cardiac: Regular Rhythm and S1/S2
GI: Soft and Tender (some in epigastric area)
Neuro: AO x 3
[2023-11-08] MEDS: ZENPEP DELAYED RELEASE CAPSULE PO ×3 (12:28→23:26)
--- NOTE | 2023-11-08 15:17 | CM ---
Case management following for discharge planning
Chart reviewed
Pt for ERCP today
Pain management
CM will cont to follow for d/c needs
Plan - anticipate home no needs when medically ready
[2023-11-08] MEDS: LOVENOX 40 MG SC (17:12)
[2023-11-08] MEDS: SUBLIMAZE 25 MCG IV ×2 (21:18→21:36)
[2023-11-08] MEDS: ZOFRAN 4 MG IV (22:01)
[2023-11-08] MEDS: ABILIFY 2 MG PO (23:26)
[2023-11-08] MEDS: MELATONIN 5 MG PO (23:26)
[2023-11-09 03:07] VITALS: BP 97/55
[2023-11-09 05:07] VITALS: BP 97/55
[2023-11-09] MEDS: CARAFATE SUSPENSION 1 GM PO ×2 (07:38→12:20)
[2023-11-09] MEDS: PROTONIX IV 40 MG IV (07:38)
[2023-11-09] MEDS: THERAGRAN 1 TABLET PO (07:39)
[2023-11-09] MEDS: B COMPLEX w/VITAMIN C 1 CAPLET PO (07:39)
[2023-11-09] MEDS: PROZAC 10 MG PO (07:39)
[2023-11-09] MEDS: SENOKOT 17.1999999999999993 MG PO (07:39)
[2023-11-09] MEDS: NSS (PRESERVATIVE FREE) 10 ML IV (07:39)
[2023-11-09] MEDS: ZENPEP DELAYED RELEASE CAPSULE 1 CAPSULE PO ×2 (07:39→12:20)
[2023-11-09] MEDS: VITAMIN D3 (cholecalciferol) 50 MCG PO (07:44)
[2023-11-09 07:50] VITALS: BP 103/59
--- NOTE | 2023-11-09 08:05 | W.PN.GI.CBS2 ---
Today's Communication / Plan
-
low fat diet
OK for DC
Assessment / Plan
-
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
Joshua with [facility]), hyperlipidemia, hypertension, GERD, anxiety/depression, chronic anemia, history of brain meningioma with resection, cholecystectomy (1999). She was admitted in August initially with passed stone. She was noted with some
agitation and frustration about plan but did proceed for EUS on 08/15 with no lesions in stomach normal duodenum, pancreatic stone in pancreatic head, dilation of CBD up to 11mm, main pancreatic duct no pathology of left lobe of liver. ERCP with CBD
dilation, pancreatic divisum, calculi appearing suggestive panc stone with removal, sphincterotomy completed and ventral pancreatic duct swept with stent placement in ventral panc duct. Biliary tree swept nothing found. She had follow up X ray
with no evidence of stent Pt had follow up in September with Kateryna Hernandez with improved pain but complaints of constipation. She now presents with elevated lipase, wt loss and persistent abdominal pain. On admission lipase was 743 with decrease to
354. She also has complaints of worsening dysphagia, constipation with some diarrhea and urgency.
Impression
- Abdominal pain
- Elevated lipase
Concerning for chronic pancreatitis
-hx pancreatic stone with prior ERCP and stenting in August
-pancreatic divisum anatomy on prior EUS
-worsening of chronic dysphagia
-constipation/diarrhea
-Prior CCY in 1999
-hx metastatic ovarian cancer to stomach/esophagus s/p chemo/XRT/[facility]
-Hypertension
-Hyperlipidemia
-GERD
-Depression/anxiety- recent med adjustments
-History of brain meningioma with resection
-Chronic normocytic anemia
-Abdominal hernia
Recommendations
- s/p ERCP 11/07 with pancreatic sphincterotomy and ventral PD stent
- Perform a flat plate abdominal x-ray in 4 weeks.
- f/u with in 6 weeks.
- Advanced diet to low fat diet
- C/w zenpep
- C/w PPI BID
- C/w senna and Miralax PRN
-OK to dc home from GI perspective
-Will s/o and will be available as needed
Subjective
Subjective
Date of Service: November 09, 2023
Has mild right upper quadrant pain but overall improved. No nausea or vomiting
Objective
Data Reviewed
Laboratory Data:
Laboratory Results
11/07/23 06:34
11/07/23 06:34
Laboratory Results
Magnesium 1.6 mg/dl (1.6-2.3) 11/06/23 14:44
Total Bilirubin 0.5 mg/dl (0.2-1.3) 11/07/23 06:34
AST 28 U/L (14-36) 11/07/23 06:34
ALT 13 U/L (0-35) 11/07/23 06:34
Alkaline Phosphatase 57 U/L (38-126) 11/07/23 06:34
Lipase 270 U/L (23-300) 11/05/23 07:16
11/08/23 ERCP
Impression: - Prior biliary sphincterotomy appeared open.
- Prior pancreatic sphincterotomy appeared open.
- Pancreas divisum was found.
- A pancreatic sphincterotomy was performed.
- The ventral pancreatic duct was swept and nothing
was found.
- One plastic stent was placed into the ventral
pancreatic duct.
Vital Signs and I&O:
Vital Signs
Temp Pulse Resp BP Pulse Ox
97.5 F 73 16 103/59 97
11/09/23 07:50 11/09/23 07:50 11/09/23 07:50 11/09/23 07:50 11/09/23 07:50
I&O
11/08/23 11/09/23 11/10/23
06:59 06:59 06:59
Intake Total 930 / 930 220 / 220
Balance 930 / 930 220 / 220
Physical Exam
Physical Exam
Cardiology: Normal Sinus Rhythm
Pulmonary: Clear
GI: Soft, Non Distended, Tender (Mild right upper quadrant tenderness) and Normal Bowel Sounds
[2023-11-09] MEDS: DILAUDID 0.25 MG IV (10:16)
--- NOTE | 2023-11-09 11:24 | W.PN.HOSP.TC ---
Today's Communication/Plan
-
DC
Assessment / Plan
Assessment / Plan
63-year-old female with history of pancreatitis presented with abdominal pain. Patient had an ERCP with stone removal from the pancreatic duct and stent placement August [address] Jaeger. Few days after the procedure she had pain mostly dull aching
pain. She also has loss of appetite and some nausea associated. Lipase was slightly elevated therefore she was sent to ER.
MRI-distended ventral pancreatic duct and side branch ducts in the pancreatic head with suggestion of 5.3 mm obstructing stone in the ventral PD. Mild biliary dilatation without evidence of obstructing stone in the CBD. Cholecystectomy. Mild
hepatomegaly. Small to moderate number of simple and hemorrhagic left renal cyst.
# Abdominal pain
Likely from PD stone and possible pancreatitis
s/p ERCP/Stent-no stones were found but had a sphincterotomy of the pancreatic diet and sweep of the pancreatic duct.
ERCP with pancreatic ductal stone removal and stent placement August 2023
Patient is status post cholecystectomy in 1999
Low fat diet-tolerating postprocedure. GI okay for her to be discharged from their standpoint. Follow-up with GI as an outpatient.
Continue PPI as she also has a history of GERD-patient was on Aciphex at 1 point and 'weaned herself off.'
# Anemia-mild GARRETT
# Anxiety and depression-Abilify, Prozac
# Hyperlipidemia-statin intolerant
# History of metastatic ovarian cancer to GE junction s/p chemo/XRT/[facility] in 2012 at [place]
Now follows with Dr. Mansi Andersen
# IVC filter placement and removal
# Meningioma with history of resection 2016
# Osteoporosis-on Reclast
# DVT prophylaxis-Lovenox
# Full code
D/W RN
DW GI
DC home today .Follow with GI as OP.
Total time of dc 32 min
Anticipated Discharge: Today
Subjective/Interval History
-
Date of Service: November 09, 2023
Toleraring low fat diet.
Still some RUQ pain and discomfort.
No fever.
No shortness of breath or chest pain.
Objective Data
-
Vital Signs:
Vital Signs
Temp Pulse Resp BP Pulse Ox
97.5 F 73 16 103/59 97
11/09/23 07:50 11/09/23 07:50 11/09/23 07:50 11/09/23 07:50 11/09/23 07:50
I&O
11/08/23 11/09/23 11/10/23
06:59 06:59 06:59
Intake Total 930 / 930 220 / 220
Balance 930 / 930 220 / 220
Review of Systems
-
EENT: Denies Sore Throat
Respiratory: Denies Cough
Neuro: Denies Dizzy
Physical Exam
-
General: No Apparent Distress
HEENT: Moist Mucous Membranes
Respiratory: Clear to Auscultation
Cardiac: Regular Rhythm and S1/S2
GI: Soft, Nondistended, Normal Bowel Sounds and Tender (some discomfort in epi/edwin area but no rebound)
Neuro: AO x 3
Psych: Calm
--- NOTE | 2023-11-09 14:32 | W.DS.TRANS ---
DC Summary - Feed Manager
-
Discharge Instructions:
Discharge Diagnosis/Procedures Pancreatitis with pancreatic duct stone s/p
pancreatic duct stent placement
Diet Low Fat
Additional Diets low fat diet for 1 week
Activity As tolerated
Driving Restrictions As prior to admission
Bathing Restrictions None
Instructions:
Stand-Alone Forms:
Changes to Home Medications: No
Discharge Medications:
DC Medications w/original date entered in [facility] [employer]
Abilify 1 tab PO HS Neurological Condition 11/02/23
Calcium + Magnesium 3 tab PO DAILY Supplement 11/02/23
Prozac 1 cap PO DAILY Mental Health 11/02/23
cholecalciferol (vitamin D3) 50 mcg (2,000 unit) tablet 50 mcg PO DAILY Supplement 11/02/23
melatonin 1 - 2 gummy PO HSPRN PRN sleep 11/02/23
sennosides 8.6 mg tablet (Senokot) 8.6 mg PO BID Supplement 11/02/23
therapeutic multivitamin 1 tab PO DAILY Supplement 11/02/23
vitamin B complex 1 tab PO DAILY Supplement 11/02/23
zoledronic acid 5 mg/100 mL in mannitol 5 %-water intravenous piggybck (Reclast) 0 mg IV DIRECTED bone health 11/02/23
acetaminophen 325 mg tablet 650 mg (2 x 325 mg) PO Q4HPRN PRN mild pain/ fever>100.5F #1 tab 11/09/23
ikcfjw-pvbkmpce-fcstcqd 10,000-32,000-42,000 unit capsule,delayed rel (Zenpep) 1 cap PO ACHS #120 caps 11/09/23
oxycodone 5 mg tablet 5 mg PO Q8H PRN Pain #10 tabs 11/09/23
pantoprazole 40 mg tablet,delayed release (Protonix) 40 mg PO BID #60 tabs 11/09/23
polyethylene glycol 3350 17 gram oral powder packet (HealthyLax) 17 g PO DAILY #30 ea 11/09/23
Home Medication Changes
New medication - MiraLAX, Protonix, oxycodone, Zenpep
Pending Results: No
[2023-11-09 14:47] VITALS: BP 103/64
[2023-11-09] MEDS: PREVNAR 20 0.5 ML IM (14:48)
--- NOTE | 2023-11-09 15:15 | CM ---
Pt for d/c today
Has ride home
Plan - home no needs
== END 2023-11-09 15:09 | disposition home or self-care (01) | DRG 439 ==
LOC: 3 WEST ACU 22:32
PROVIDERS: Emergency Medicine; Hospitalist; Internal Medicine Gastroenterology; Nurse Practitioner Adult Health; Physician Assistant Medical; ADMITTING PHYSICIAN Internal Medicine; ATTENDING PHYSICIAN Internal Medicine; CONSULT PHYSICIAN Internal Medicine Gastroenterology; EMERGENCY PHYSICIAN Emergency Medicine; FAMILY PHYSICIAN Family Medicine
PROC: 0F7D8DZ Dilation of Pancreatic Duct with Intraluminal Device, Via Natural or Artificial Opening Endoscopic (ICD-10-PCS; 2023-11-08)
PROC: 0DJ08ZZ Inspection of Upper Intestinal Tract, Via Natural or Artificial Opening Endoscopic (ICD-10-PCS; 2023-11-08)
PROC: 3E0234Z Introduction of Serum, Toxoid and Vaccine into Muscle, Percutaneous Approach (ICD-10-PCS; 2023-11-09)
DX: K85.90 Acute pancreatitis without necrosis or infection, unspecified (principal); Q45.3 Other congenital malformations of pancreas and pancreatic duct; K86.89 Other specified diseases of pancreas; F32.A Depression, unspecified; F41.9 Anxiety disorder, unspecified; I10 Essential (primary) hypertension; K21.9 Gastro-esophageal reflux disease without esophagitis; E78.00 Pure hypercholesterolemia, unspecified; G89.29 Other chronic pain; K59.09 Other constipation; R13.10 Dysphagia, unspecified; M81.0 Age-related osteoporosis without current pathological fracture; D50.9 Iron deficiency anemia, unspecified; Z23 Encounter for immunization; Z79.899 Other long term (current) drug therapy; Z85.43 Personal history of malignant neoplasm of ovary; Z86.011 Personal history of benign neoplasm of the brain; Z90.49 Acquired absence of other specified parts of digestive tract; Z92.21 Personal history of antineoplastic chemotherapy; Z92.3 Personal history of irradiation
CPT/HCPCS: 74183; 74330; 76000; 76700; 80048; 80053; 82607; 82728; 83540; 83550; 83690; 83735; 85025; 85027; 87324; 87449; 89055; 90677; 92610; 96360; 96361; 99284; A9575; C1769; C2617; G0009

== ENCOUNTER → 2023-11-15 14:42 | Outpatient (REF) | payer BC, SELFPAY ==
[2023-11-15 15:57] LABS: Lipase 554 U/L (23-300)
== END ==
LOC: REG 14:42
PROVIDERS: ATTENDING PHYSICIAN Internal Medicine Gastroenterology; FAMILY PHYSICIAN Family Medicine
DX: T85.528A Displacement of other gastrointestinal prosthetic devices, implants and grafts, initial encounter (principal)
CPT/HCPCS: 36415; 83690

== ENCOUNTER 2023-11-23 10:46 | Emergency (ER) | payer BC, SELFPAY ==
[2023-11-23 10:54] VITALS: BP 106/73
--- NOTE | 2023-11-23 11:59 | ED.GENMED ---
History of Present Illness
General
Chief Complaint: Abdominal Pain
Source: patient
Exam Limitations: none
Time Seen by Provider: 11/23/23 11:26
Nursing documentation reviewed up to this point in time: agreed with
Travel History
Have you had any contact with someone who has COVID-19?: No
Do you have any symptoms of coronavirus? Fever > 100 degrees, chills, cough, shortness of breath, sore throat, loss of taste or smell, muscle aches, or headache?: No
History of Present Illness
History of Present Illness:
63 y/o F with h/o ovarian cancer with mets to stomach and esophagus, HENRY and radiation in 2012
cholecystectomy 1999
here with ruq pain and nausea x 2 weeks
pt was here in august for CBD dilation and EUS with pancreatic stone in pancreatic head; ERCP with CBD dilation, sphincerteromty completed and ventral pancreatic duct swept with sent placement in ventral panc duct
xray followed up with no evidence of stent
pt presented in october with elevated lipase 700s and persistent abd pain
she had ERCP 11/07 WITH PANCREATIC SPHINCETERECTOMY and ventral PD stent by dr. augustin
pt had left without pain but then last week started with sypmtoms exactly the same again
she had outpatient labs of lipase 500s and was waiting for isntructions from dr. demetria CHAPARRO who was actually on vacation and today called the office and was todl to come in
she also has intermittent blurry vision and persistent nauesa
she felt like she was going to pass out 2 days ago
no cp, sob, vomiting, diarrhea, contsipation, fever, chills, jaundice
Past History
Past History
ED Past Medical History: Cancer (Ovarian), GERD, HTN, Hypercholesterolemia, Psychiatric (Anxiety, depression) and Other (Meningioma, PNA, Anemia, Pancreatitis, )
ED Past Surgical History: Cholecystectomy, Gynecological (H[facility]RY January 2013), Orthopedic (Carpal tunnel R), Urological (Ureteral stents) and Other (Santa filter with removal, Hernia repair, Brain tumor with resection)
Social History
Tobacco: Non-smoker
Alcohol: None
Drug: None
Personal:
Living: with family
Employment: Employed
Family History
Family History: Hypertension
Review of Systems
Review of Systems
Allergies reviewed?: Yes
All Other Systems: Not applicable
Phy Exam
Physical Exam
Physical Exam:
GENERAL: Alert , in no apparent distress, anxious
EYE: pupils equal and reactive
NECK: Supple
ENT: o/p clr, mmm.
CARDIAC: Regular rate and rhythm .no murmur
LUNGS: Clear breath sounds bilaterally, no acute respiratory distress, no wheezes/rales/rhonchi
ABDOMEN: Soft,mild RUQ tenderness;, no r/g, no cvat, normal bowel sounds
NEUROLOGICAL: Alert and oriented, no focal neuro deficits, cn intact, strength intact, sensation intact
SKIN: Warm and dry, skin intact.
MUSCULOSKELETAL: No edema, well perfused. neg mary's sign
PSYCH: Normal and appropriate interaction.
Course
Orders/Labs/Results
Orders:
Orders
11/23/23 11:57
Orthostatic VS- Treatment ONCE
0.9% Sodium Chloride 1000 ml [Nss] 1,000 ml IV BOLUS
11/23/23 11:58
Electrocardiogram (*1) Urgent
Reason for Study: Vertigo / Dizzy
EKG- Treatment ONCE
11/23/23 12:03
Amylase Urgent
Complete Blood Count/With Diff Urgent
Comprehensive Metabolic Panel Urgent
LDH Urgent
Lipase Urgent
11/23/23 12:10
Lactated Ringers [Lr] 1,000 ml IV BOLUS
11/23/23 13:14
Abdomen Xray - 1 View [CR Abdomen - 1 View] Urgent
Comment:
Reason For Exam: eval panc duct stent
Abnormal Lab Results
11/23/23
12:03
RBC 3.74 L 10^6/uL
(4.20-5.40)
Hgb 11.2 L g/dL
(12.0-16.0)
Hct 33.0 L %
(37.0-47.0)
Absolute Monos (auto) 0.7 H 10^3/uL
(0.1-0.6)
Monocytes % 9.9 H %
(1.7-9.3)
Lipase 387 H U/L
(23-300)
11/23/23 12:03
11/23/23 12:03
Vital Signs
Initial and Last Documented VS:
Initial Vital Signs
Temp Pulse Resp BP Pulse Ox
98.1 F 79 20 106/73 97
11/23/23 10:54 11/23/23 10:54 11/23/23 10:54 11/23/23 10:54 11/23/23 10:54
Last Documented Vital Signs
Temp Pulse Resp BP Pulse Ox
98.5 F 86 16 125/62 99
11/23/23 15:47 11/23/23 15:47 11/23/23 15:47 11/23/23 15:47 11/23/23 15:47
MDM/Problems Addressed
Differential Diagnosis Includes:
pancreatitis, stent malfunction, stones, dehydration
MDM/Problems Addressed:
D3-year-old female with known pancreatic duct stone status post sphincterotomy and pancreatic duct stenting x 2 over the last couple of months presents for of elevated lipase last week after her symptoms returned with nausea and difficulty eating.
She is not vomiting but she does not normally vomit because of her previous radiation issues. On exam the patient does not look extremely dehydrated but reports not having had much to eat or drink recently. Her abdomen had some mild tenderness to
her right upper quadrant but nothing significant. She is reporting feeling some blurred vision at times and when she says she is got some blurred vision is usually with lightheadedness. Her EKG is unremarkable. This sounds like a near syncopal
type of event. Patient is having no chest pain or shortness of breath. She seems to be quite anxious that her lipase was elevated last week and is probably higher now. Patient has a first appointment for a second opinion next week at [place]. She
would like to be able to make this appointment. I spoke with ED attending regarding this patient who recommended I reach out to GI regarding imaging since patient's lipase has improved to 398 and she has no other findings. Discussed with GI
attending Dr. Green who recommended that we x-ray the abdomen to see the position of the stent which appears to be in position after independent review and radiology report agreed. I spoke with the GI attending regarding this and she recommended
that the patient take pain medicine as needed, stay hydrated and follow-up with the [facility] specialist as planned and felt like she could be discharged at this time. Patient able and likes this plan. Return precautions given
*Critical Care Note
Total Time (30-74mins, 75-104mins- exclusive of procedures): Not Applicable
ED Attending Note
-
Portions of this chart may have been created with voice recognition software.� Occasional wrong word or��sound alike� substitutions may have occurred due to the inherent limitations of voice recognition software.
Discharge Plan
Departure
Patient Disposition: Home (Routine Discharge)
Date of Disposition: 11/23/23
Time of Disposition: 15:29
Patient with high blood pressure during this ER visit?: No
Condition: Fair
Covid-19: Not Applicable
Discharge Problem:
Nausea
Instructions: Nausea and Vomiting, Adult (DC)
Prescriptions:
No Action
Abilify 2 mg tablet
1 tab PO HS
sennosides [Senokot] 8.6 mg Tablet
8.6 mg PO BID
therapeutic multivitamin Tablet
1 tab PO DAILY
vitamin B complex Tablet
1 tab PO DAILY
zoledronic jmuh-tblfknwv-gywja [Reclast] 5 mg/100 mL Piggyback
0 mg IV DIRECTED
Patient Comments:
11/02/2023, pt. had this med. 'a few weeks ago'; taken once a year for 2 years and then skip a year per pt.
cholecalciferol (vitamin D3) 50 mcg (2,000 unit) Tablet
50 mcg PO DAILY
Calcium + Magnesium
3 tab PO DAILY
Prozac 10 mg tablet
1 cap PO DAILY
melatonin
1 - 2 gummy PO HSPRN PRN (Reason: sleep)
acetaminophen 325 mg Tablet
650 mg PO Q4HPRN PRN (Reason: mild pain/ fever>100.5F) Qty: 1 0RF
polyethylene glycol 3350 [HealthyLax] 17 gram Powder In Packet
17 g PO DAILY Qty: 30 0RF
pantoprazole [Protonix] 40 mg tablet,delayed release (DR/EC)
40 mg PO BID Qty: 60 0RF
Zenpep 10,000-32,000 -42,000 unit Capsule,Delayed Release(Dr/Ec)
1 cap PO ACHS Qty: 120 0RF
Referrals:
Hernan Pan MD [Family Provider] - Follow up in 2-3 days
Activity Restrictions/Additional Instructions:
Not entirely sure the cause of your symptoms but your workup here today reveals that your stent is in the correct position and your lipase is trending down from last week. You should probably stick with the bland diet or liquids for 24 hours and
continue your medications. If you use the pain medications make sure to use a stool softener. Follow-up with the [facility] doctor as planned for second opinion. Always return to the ER if you get fever, worsening pain, vomiting, dehydration,
inability to swallow or any concerns.
Interventions
Interventions:
*Risk Screen - Suicide Last Done: 11/23/23 10:54
*General Assessment Last Done: 11/23/23 10:54
*Neglect/Abuse Screening Last Done: 11/23/23 10:54
ED- Fall Risk Assessment Last Done: 11/23/23 12:10
*ED COVID-19 Vaccine History Last Done: 11/23/23 12:10
*Nursing Disposition Last Done: 11/23/23 15:47
SX-Nmkmbg-Etoxystnzl Assessment Last Done: 11/23/23 12:10
Discharge Date and Time
Discharge Date/Time: 11/23/23 15:48
Print Language: EMIRATI
[2023-11-23 12:02] VITALS: BP 110/68
[2023-11-23 12:10] VITALS: BMI 26.3
[2023-11-23 12:15] LABS: % Basophils 0.9 % (0-2); % Eosinophils 1.5 % (0-6); % Immature Granulocytes 0.3 % (0-0.5); % Lymphocytes 45.1 % (20.5-51.1); % Monocytes 9.9 % (1.7-9.3); % Neutrophils 42.3 % (42.2-75.2); Absolute Basophils 0.1 10^3/uL (0-0.2); Absolute Eosinophils 0.1 10^3/uL (0-0.7); Absolute Lymphocytes 3.1 10^3/uL (1.2-3.4); Absolute Monocytes 0.7 10^3/uL (0.1-0.6); Absolute Neutrophils 2.9 10^3/uL (1.4-6.5); Hemoglobin 11.2 g/dL (12.0-16.0); Mean Corp Hgb Conc. 33.9 g/dL (33.0-37.0); Mean Corpuscular Hgb 29.9 pg (27.0-31.0); Mean Corpuscular Volume 88.2 fL (81.0-99.0); Nucleated Red Blood Cells % 0 %; Platelet Count 336 10^3/uL (130-400); Red Blood Cell Count 3.74 10^6/uL (4.20-5.40); Red Cell Dist. Width 12.8 % (11.5-14.5); White Blood Cell Count 6.8 10^3/uL (4.8-10.8)
[2023-11-23] MEDS: LR 1000 IV (12:18)
[2023-11-23 12:32] LABS: ALT (SGPT) 15 U/L (0-35); AST (SGOT) 28 U/L (14-36); Albumin 4.2 g/dl (3.5-5.0); Alkaline Phosphatase 57 U/L (38-126); Amylase 97 U/L (30-110); Blood Urea Nitrogen 9 mg/dl (7-17); Calcium 9.4 mg/dl (8.4-10.2); Carbon Dioxide 27 mmol/L (22-30); Chloride 100 mmol/L (98-107); Glucose 95 mg/dl (70-99); LDH 202 U/L (120-246); Lipase 387 U/L (23-300); Potassium 4.1 mmol/L (3.5-5.1); Sodium 135 mmol/L (135-145); Total Bilirubin 0.3 mg/dl (0.2-1.3); Total Protein 7.9 g/dl (6.3-8.2); eGFR > 60.00
[2023-11-23 12:51] VITALS: BP 129/65; BP 131/81; BP 136/71; PULSE 76; PULSE 82
[2023-11-23 15:47] VITALS: BP 125/62
== END 2023-11-23 15:48 | disposition home or self-care (01) ==
LOC: EMR 10:46
PROVIDERS: Physician Assistant; EMERGENCY PHYSICIAN Emergency Medicine; FAMILY PHYSICIAN Family Medicine
DX: R11.0 Nausea (principal); K21.9 Gastro-esophageal reflux disease without esophagitis; I10 Essential (primary) hypertension; E78.00 Pure hypercholesterolemia, unspecified; F41.8 Other specified anxiety disorders; Z85.43 Personal history of malignant neoplasm of ovary; Z90.49 Acquired absence of other specified parts of digestive tract
CPT/HCPCS: 99283; 74018; 80053; 82150; 83615; 83690; 85025; 93005

== ENCOUNTER → 2023-12-12 09:22 | Outpatient (REF) | payer BC, SELFPAY | LOC: RAD 09:22 | PROVIDERS: ATTENDING PHYSICIAN Internal Medicine Gastroenterology; FAMILY PHYSICIAN Family Medicine | DX: T85.528A Displacement of other gastrointestinal prosthetic devices, implants and grafts, initial encounter (principal) | CPT/HCPCS: 74018 ==

== ENCOUNTER → 2023-12-27 15:39 | Outpatient (REF) | payer BC, SELFPAY | LOC: RCS 15:39 | PROVIDERS: ATTENDING PHYSICIAN Internal Medicine Cardiovascular Disease; FAMILY PHYSICIAN Family Medicine | DX: R55 Syncope and collapse (principal) | CPT/HCPCS: 93306 ==

== ENCOUNTER 2024-01-11 12:33 | Day surgery (SDC) | payer BC, SELFPAY ==
[2024-01-11 12:57] VITALS: BMI 25.3
--- NOTE | 2024-01-11 14:13 | ITS.CL.IMPLP ---
Medical [facility] - Implant Loop
Implant Loop
Procedure Report:
Primary Physician: Hernan Pan MD
Primary Rn Orthopedic: Mathew Lazo MD
Procedure Date: 01/11/2024
Procedure: Placement of a loop recorder.
History/Indication:
1. See office H&P for complete history.
2. Patient is a pleasant 63-year-old female with a past medical history significant for pancreatitis, GERD, anxiety/depression, ovarian cancer, and recurrent syncope. Event monitor did not demonstrate any arrhythmias however patient with unclear
etiology for syncope with possible arrhythmic etiology. Patient undergoing implantable loop recorder implant for longitudinal surveillance in the setting of syncope of unclear etiology.
Method:
After informed consent was obtained, the patient was brought to the EP laboratory holding area in a fasting, non-sedated state. Peripheral access was established. The left chest was prepared and draped in a sterile fashion. A 'time out' was
called. Local anesthesia was injected in the subcutaneous tissue. The ILR was injected under the skin. Topical skin adhesive was applied. Following the procedure, the patient was taken to the recovery area in stable condition. No complications
were noted.
Device Data:
[employer]; Model# LINQII; Serial# [id number]
Conclusion:
Successful placement of a loop recorder.
Recommendations:
1. Follow-up will be arranged in the [facility] in 7-10 days for wound check.
2. Routine ILR care.
Dayne Moses DO
Clinical Cardiac Delimber Operator
cc: Hernan Pan MD; Mathew Lazo MD
== END 2024-01-11 14:34 | disposition home or self-care (01) ==
LOC: CATH 12:33
PROVIDERS: ATTENDING PHYSICIAN Internal Medicine Cardiovascular Disease; FAMILY PHYSICIAN Family Medicine
DX: Z09 Encounter for follow-up examination after completed treatment for conditions other than malignant neoplasm (principal); Z87.19 Personal history of other diseases of the digestive system; K21.9 Gastro-esophageal reflux disease without esophagitis; C56.9 Malignant neoplasm of unspecified ovary; R55 Syncope and collapse; F41.9 Anxiety disorder, unspecified; F32.A Depression, unspecified
CPT/HCPCS: 33285; C1764

== ENCOUNTER → 2024-01-23 10:49 | Outpatient (REF) | payer MEDICARE, SELFPAY ==
[2024-01-23 13:37] LABS: ALT (SGPT) 15 U/L (0-35); AST (SGOT) 24 U/L (14-36); Albumin 4.2 g/dl (3.5-5.0); Alkaline Phosphatase 93 U/L (38-126); Direct Bilirubin 0.1 mg/dl (0.0-0.4); Total Bilirubin 0.3 mg/dl (0.2-1.3); Total Protein 7.7 g/dl (6.3-8.2)
[2024-01-24 15:03] LABS: Amylase 227 U/L (30-110); Lipase 1497 U/L (23-300)
== END ==
LOC: REG 10:49
PROVIDERS: ATTENDING PHYSICIAN Family Medicine
DX: K86.1 Other chronic pancreatitis (principal); R74.01 Elevation of levels of liver transaminase levels
CPT/HCPCS: 36415; 74018; 80076; 82150; 83690

== ENCOUNTER → 2024-02-25 09:23 | Outpatient (REF) | payer MEDICARE, SELFPAY ==
[2024-02-25 10:58] LABS: ALT (SGPT) 11 U/L (0-35); AST (SGOT) 23 U/L (14-36); Albumin 4.1 g/dl (3.5-5.0); Alkaline Phosphatase 58 U/L (38-126); Amylase 108 U/L (30-110); Blood Urea Nitrogen 13 mg/dl (7-17); Calcium 9.5 mg/dl (8.4-10.2); Carbon Dioxide 28 mmol/L (22-30); Chloride 99 mmol/L (98-107); Glucose 114 mg/dl (70-99); Lipase 494 U/L (23-300); Potassium 4.5 mmol/L (3.5-5.1); Sodium 135 mmol/L (135-145); Total Bilirubin 0.4 mg/dl (0.2-1.3); Total Protein 7.5 g/dl (6.3-8.2); eGFR > 60.00
[2024-02-25 13:24] LABS: Glycohemoglobin (HgbA1c) 5.9 % (4.0-5.6)
== END ==
LOC: REG 09:23
PROVIDERS: ATTENDING PHYSICIAN Family Medicine
DX: E78.2 Mixed hyperlipidemia (principal); R73.9 Hyperglycemia, unspecified; K59.04 Chronic idiopathic constipation; R74.01 Elevation of levels of liver transaminase levels
CPT/HCPCS: 36415; 80053; 82150; 83036; 83690

== ENCOUNTER → 2024-03-16 10:49 | Outpatient (REF) | payer MEDICARE, SELFPAY ==
[2024-03-16 11:32] LABS: % Basophils 0.8 % (0-2); % Eosinophils 0.5 % (0-6); % Immature Granulocytes 0.3 % (0-0.5); % Lymphocytes 28.4 % (20.5-51.1); % Monocytes 8.5 % (1.7-9.3); % Neutrophils 61.5 % (42.2-75.2); Absolute Basophils 0.1 10^3/uL (0-0.2); Absolute Lymphocytes 2.1 10^3/uL (1.2-3.4); Absolute Monocytes 0.6 10^3/uL (0.1-0.6); Absolute Neutrophils 4.5 10^3/uL (1.4-6.5); Hematocrit 35.3 % (37.0-47.0); Hemoglobin 11.9 g/dL (12.0-16.0); Mean Corp Hgb Conc. 33.7 g/dL (33.0-37.0); Mean Corpuscular Hgb 30.6 pg (27.0-31.0); Mean Corpuscular Volume 90.7 fL (81.0-99.0); Mean Platelet Volume 9.1 fL (7.4-10.4); Nucleated Red Blood Cells % 0 %; Platelet Count 307 10^3/uL (130-400); Red Blood Cell Count 3.89 10^6/uL (4.20-5.40); Red Cell Dist. Width 13.7 % (11.5-14.5); White Blood Cell Count 7.3 10^3/uL (4.8-10.8)
[2024-03-16 11:48] LABS: ALT (SGPT) 15 U/L (0-35); AST (SGOT) 25 U/L (14-36); Albumin 4.4 g/dl (3.5-5.0); Alkaline Phosphatase 60 U/L (38-126); Blood Urea Nitrogen 13 mg/dl (7-17); Calcium 9.3 mg/dl (8.4-10.2); Carbon Dioxide 27 mmol/L (22-30); Chloride 98 mmol/L (98-107); Glucose 90 mg/dl (70-99); Potassium 4.3 mmol/L (3.5-5.1); Sodium 136 mmol/L (135-145); Total Bilirubin 0.4 mg/dl (0.2-1.3); Total Protein 8.1 g/dl (6.3-8.2); eGFR > 60.00
[2024-03-16 12:19] LABS: CA 125 < 5.5 U/mL (0-35)
[2024-03-16 13:01] LABS: Folate > 20.0 ng/ml (2.76-20); Vitamin B12 663 pg/ml (239-931)
[2024-03-17 23:35] LABS: Beta-2-Microglobulin 2.1 mg/L (<=3.0)
== END ==
LOC: REG 10:49
PROVIDERS: ATTENDING PHYSICIAN Internal Medicine Hematology & Oncology; FAMILY PHYSICIAN Family Medicine
DX: K86.1 Other chronic pancreatitis (principal); D64.9 Anemia, unspecified; D50.9 Iron deficiency anemia, unspecified; Z85.43 Personal history of malignant neoplasm of ovary; M81.0 Age-related osteoporosis without current pathological fracture; D47.2 Monoclonal gammopathy; D51.9 Vitamin B12 deficiency anemia, unspecified; D51.8 Other vitamin B12 deficiency anemias
CPT/HCPCS: 36415; 80053; 82232; 82607; 82728; 82746; 82784; 83521; 84155; 84165; 85025; 86304; 86334

== ENCOUNTER → 2024-07-24 14:39 | Outpatient (REF) | payer MEDICARE, SELFPAY | LOC: RAD 14:39 | PROVIDERS: ATTENDING PHYSICIAN Nurse Practitioner Adult Health; FAMILY PHYSICIAN Family Medicine | DX: D47.2 Monoclonal gammopathy (principal); M81.0 Age-related osteoporosis without current pathological fracture | CPT/HCPCS: 77080 ==

== ENCOUNTER → 2024-10-02 15:21 | Outpatient (REF) | payer MEDICARE, SELFPAY | LOC: WDC 15:21 | PROVIDERS: ATTENDING PHYSICIAN Family Medicine | DX: Z12.31 Encounter for screening mammogram for malignant neoplasm of breast (principal) | CPT/HCPCS: 77063; 77067 ==

== ENCOUNTER → 2024-10-02 16:07 | Outpatient (REF) | payer MEDICARE, SELFPAY ==
[2024-10-02 17:04] LABS: ALT (SGPT) 18 U/L (0-35); AST (SGOT) 27 U/L (14-36); Albumin 4.3 g/dl (3.5-5.0); Alkaline Phosphatase 57 U/L (38-126); Blood Urea Nitrogen 22 mg/dl (7-17); Calcium 9.3 mg/dl (8.4-10.2); Carbon Dioxide 29 mmol/L (22-30); Chloride 100 mmol/L (98-107); Direct Bilirubin 0.2 mg/dl (0.0-0.4); Glucose 97 mg/dl (70-99); Potassium 4.6 mmol/L (3.5-5.1); Sodium 136 mmol/L (135-145); Total Bilirubin 0.4 mg/dl (0.2-1.3); Total Protein 7.8 g/dl (6.3-8.2); eGFR > 60.00
[2024-10-02 17:06] LABS: Hematocrit 31.5 % (37.0-47.0); Hemoglobin 10.9 g/dL (12.0-16.0); Mean Corp Hgb Conc. 34.6 g/dL (33.0-37.0); Mean Corpuscular Hgb 31.3 pg (27.0-31.0); Mean Corpuscular Volume 90.5 fL (81.0-99.0); Mean Platelet Volume 8.7 fL (7.4-10.4); Platelet Count 272 10^3/uL (130-400); Red Blood Cell Count 3.48 10^6/uL (4.20-5.40); Red Cell Dist. Width 13.2 % (11.5-14.5); White Blood Cell Count 8.2 10^3/uL (4.8-10.8)
[2024-10-02 17:34] LABS: CA 125 < 5.5 U/mL (0-35)
[2024-10-02 18:14] LABS: % Basophils 0.8 % (0-2); % Eosinophils 5.7 % (0-6); % Immature Granulocytes 0.1 % (0-0.5); % Lymphocytes 38.8 % (20.5-51.1); % Neutrophils 42.6 % (42.2-75.2); Absolute Basophils 0.1 10^3/uL (0-0.2); Absolute Eosinophils 0.5 10^3/uL (0-0.7); Absolute Lymphocytes 3.2 10^3/uL (1.2-3.4); Absolute Neutrophils 3.5 10^3/uL (1.4-6.5); Nucleated Red Blood Cells % 0 %
== END ==
LOC: REG 16:07
PROVIDERS: ATTENDING PHYSICIAN Internal Medicine Gastroenterology; FAMILY PHYSICIAN Family Medicine; REFERRING PHYSICIAN Internal Medicine Hematology & Oncology
DX: K86.81 Exocrine pancreatic insufficiency (principal); D50.9 Iron deficiency anemia, unspecified; Z85.43 Personal history of malignant neoplasm of ovary; M81.0 Age-related osteoporosis without current pathological fracture; D47.2 Monoclonal gammopathy; Z78.0 Asymptomatic menopausal state
CPT/HCPCS: 36415; 80053; 82248; 85025; 86304

== ENCOUNTER → 2024-10-04 15:04 | Outpatient (REF) | payer MEDICARE, SELFPAY ==
[2024-10-04 15:41] LABS: Hematocrit 34.1 % (37.0-47.0); Hemoglobin 11.6 g/dL (12.0-16.0); Mean Corpuscular Hgb 30.9 pg (27.0-31.0); Mean Corpuscular Volume 90.7 fL (81.0-99.0); Mean Platelet Volume 8.8 fL (7.4-10.4); Platelet Count 311 10^3/uL (130-400); Red Blood Cell Count 3.76 10^6/uL (4.20-5.40); Red Cell Dist. Width 13.2 % (11.5-14.5); White Blood Cell Count 7.1 10^3/uL (4.8-10.8)
[2024-10-04 15:53] LABS: ALT (SGPT) 18 U/L (0-35); AST (SGOT) 25 U/L (14-36); Albumin 4.1 g/dl (3.5-5.0); Alkaline Phosphatase 50 U/L (38-126); Amylase 76 U/L (30-110); Blood Urea Nitrogen 14 mg/dl (7-17); Calcium 9.6 mg/dl (8.4-10.2); Carbon Dioxide 29 mmol/L (22-30); Chloride 101 mmol/L (98-107); Glucose 98 mg/dl (70-99); Lipase 206 U/L (23-300); Potassium 4.3 mmol/L (3.5-5.1); Sodium 136 mmol/L (135-145); Total Bilirubin 0.4 mg/dl (0.2-1.3); Total Protein 7.9 g/dl (6.3-8.2); eGFR > 60.00
[2024-10-04 16:32] LABS: % Basophils 1.3 % (0-2); % Immature Granulocytes 0.1 % (0-0.5); % Lymphocytes 37.7 % (20.5-51.1); % Monocytes 11.2 % (1.7-9.3); % Neutrophils 43.7 % (42.2-75.2); Absolute Basophils 0.1 10^3/uL (0-0.2); Absolute Eosinophils 0.4 10^3/uL (0-0.7); Absolute Lymphocytes 2.7 10^3/uL (1.2-3.4); Absolute Monocytes 0.8 10^3/uL (0.1-0.6); Absolute Neutrophils 3.1 10^3/uL (1.4-6.5); Nucleated Red Blood Cells % 0 %
[2024-10-07 07:50] LABS: Beta-2-Microglobulin 2.2 mg/L (<=3.0)
== END ==
LOC: REG 15:04
PROVIDERS: ATTENDING PHYSICIAN Internal Medicine Hematology & Oncology; FAMILY PHYSICIAN Family Medicine
DX: D50.9 Iron deficiency anemia, unspecified (principal); Z85.43 Personal history of malignant neoplasm of ovary; M81.0 Age-related osteoporosis without current pathological fracture; D47.2 Monoclonal gammopathy; Z78.0 Asymptomatic menopausal state; K86.1 Other chronic pancreatitis
CPT/HCPCS: 36415; 80053; 82150; 82232; 82784; 83521; 83690; 84155; 84165; 85025; 86334

== ENCOUNTER → 2024-11-24 09:05 | Outpatient (REF) | payer MEDICARE, SELFPAY ==
[2024-11-24 10:15] LABS: ALT (SGPT) 13 U/L (0-35); AST (SGOT) 22 U/L (14-36); Albumin 4.3 g/dl (3.5-5.0); Alkaline Phosphatase 57 U/L (38-126); Direct Bilirubin 0.2 mg/dl (0.0-0.4); Lipase 154 U/L (23-300); Total Bilirubin 0.5 mg/dl (0.2-1.3); Total Protein 7.9 g/dl (6.3-8.2)
[2024-11-24 10:24] LABS: Vitamin D, 25-OH*** 62.5 ng/mL (30-80)
== END ==
LOC: REG 09:05
PROVIDERS: FAMILY PHYSICIAN Family Medicine
DX: K86.1 Other chronic pancreatitis (principal); M81.0 Age-related osteoporosis without current pathological fracture
CPT/HCPCS: 36415; 80076; 82306; 83690; 84446; 84590

== ENCOUNTER → 2024-12-26 15:29 | Outpatient (REF) | payer MEDICARE, SELFPAY | LOC: UCDH 15:29 | PROVIDERS: ATTENDING PHYSICIAN Physician Assistant Medical; FAMILY PHYSICIAN Family Medicine | DX: M25.561 Pain in right knee (principal) | CPT/HCPCS: 73564 ==

== ENCOUNTER → 2025-06-04 09:47 | Outpatient (REF) | payer MEDICARE, SELFPAY ==
[2025-06-04 10:50] LABS: Hematocrit 36.2 % (37.0-47.0); Hemoglobin 11.9 g/dL (12.0-16.0); Mean Corp Hgb Conc. 32.9 g/dL (33.0-37.0); Mean Corpuscular Volume 92.1 fL (81.0-99.0); Nucleated Red Blood Cells % 0 %; Platelet Count 305 10^3/uL (130-400); Red Cell Dist. Width 13.4 % (11.5-14.5)
[2025-06-04 11:14] LABS: ALT (SGPT) 22 U/L (0-35); AST (SGOT) 31 U/L (14-36); Albumin 4.7 g/dl (3.5-5.0); Alkaline Phosphatase 64 U/L (38-126); Blood Urea Nitrogen 18 mg/dl (7-17); Calcium 9.5 mg/dl (8.4-10.2); Carbon Dioxide 26 mmol/L (22-30); Chloride 102 mmol/L (98-107); Glucose 91 mg/dl (70-99); HDL Cholesterol 56 mg/dl; LDL Cholesterol, Calculated 183 mg/dl; Potassium 4.5 mmol/L (3.5-5.1); Sodium 134 mmol/L (135-145); Total Protein 8.3 g/dl (6.3-8.2); Very Low Density Lipoprotein 20 mg/dl (0-30); eGFR > 60.00
[2025-06-04 15:28] LABS: CA 125 < 5.5 U/mL (0-35)
== END ==
LOC: REG 09:47
PROVIDERS: ATTENDING PHYSICIAN Family Medicine
DX: K86.1 Other chronic pancreatitis (principal); Z00.01 Encounter for general adult medical examination with abnormal findings; R53.83 Other fatigue; R10.20 Pelvic and perineal pain unspecified side; E79.2 Myoadenylate deaminase deficiency; C56.3 Malignant neoplasm of bilateral ovaries
CPT/HCPCS: 36415; 80053; 80061; 85025; 86304